=== PATIENT | male | born 1930 | race Caucasian/White ===

== ENCOUNTER 2017-08-12 20:40 | Emergency (ER) | payer MEDICARE, BC ==
[2016-01-20 15:56] VITALS: BMI 29.5
[~2017-08-12 20:40] MED LIST: AUGMENTIN 500-11 TA1 PO; BAYER CHEWABLE81 MG PO; CARTIA XT180 MG PO; COREG25 MG PO; COZAAR100 MG PO; LASIX20 MG PO; PACERONE200 MG PO; XANAX0.25 MG PO; ZOCOR40 MG PO
[2017-08-12 21:40] LABS: BASOPHILS 0.4 % (0-2); EOSINOPHILS 2.3 % (0-7); HEMATOCRIT 38.5 % (42.0-54.0); HEMOGLOBIN 12.8 g/dL (13.5-17.5); IMMATURE GRANULOCYTES 0.2 % (0-5); LYMPHOCYTES 26.1 % (15-50); MCH 31.3 pg (26.0-34.0); MCHC 33.2 g/dL (31.0-37.0); MCV 94.1 fL (80.0-100.0); MEAN PLATELET VOLUME 9.2 fL (7.4-10.4); MONOCYTES 9.5 % (2-11); NEUTROPHILS 61.5 % (40-80); PLATELET COUNT 197 10x3/uL (130-400); RBC 4.09 10x6/uL (4.20-6.10); WBC 12.6 10x3/uL (4.8-10.8)
[2017-08-12 22:01] LABS: ALBUMIN 3.3 g/dL (3.4-5.0); ALKALINE PHOSPHATASE 78 U/L (46-116); ALT (SGPT) 48 U/L (10-68); BILIRUBIN - TOTAL 0.36 mg/dL (0.2-1.3); CALC OSMOLALITY 287 mosm/kg (275-300); CALCIUM 8.7 mg/dL (8.5-10.1); CARBON DIOXIDE 26.4 mmol/L (21.0-32.0); CHLORIDE - SERUM 105 mmol/L (98-107); CREATININE - SERUM 1.9 mg/dL (0.6-1.3); GLUCOSE 143 mg/dL (74-106); POTASSIUM - SERUM 4.8 mmol/L (3.5-5.1); PROTEIN - SERUM 7.2 g/dL (6.4-8.2); SODIUM 140 mmol/L (136-145); UREA NITROGEN 33 mg/dL (7-18); eGFR NON AFRICAN AMERICAN 36 mL/min (90-120)
[2017-08-12 22:40] LABS: CHOLESTEROL, TOTAL 128 mg/dL (0-200); CKMB 4.5 U/L (0.0-3.6); CREATINE KINASE 88 UL (21-232); HDL CHOLESTEROL 32 mg/dL (32-96); LDL CHOLESTEROL 73 mg/dL (0-100); LDL-HDL RATIO 2.3 ratio (1.5-3.5); TRIGLYCERIDE 116 mg/dL (30-200)
[2017-08-12 22:45] LABS: TROPONIN-I 1.001 ng/mL (0.000-0.060)
== END 2017-08-12 22:08 | disposition home or self-care (01) ==
LOC: D.ER 20:40
PROVIDERS: Emergency Medicine
DX: R00.2 Palpitations (principal); Z95.0 Presence of cardiac pacemaker

== ENCOUNTER 2018-05-08 23:04 | Inpatient (IN) | payer MEDICARE, BC ==
[~2018-05-08] VITALS: Ht 172.7 cm; Wt 79.5 kg
--- NOTE | ~2018-05-08 | HEMODYNAMI ---
PATIENT:LUZ JIMENEZ MEDICAL RECORD: [id number] : 30 LOCATION:[place] [address] ADMISSION DATE: 05/09/18 Generatedon:05/09/201810:04 Patient name: LUZ JIMENEZ Patient #: [id number] : 1930 Date of study: 05/09/2018 Page: Of Hemodynamic Procedure Report Patient Data Patient Demographics Procedure consent was obtained First Name: LUZ Gender: Male Last Name: TONY : 1930 Middle Initial: C Age: 87 year(s) Patient #: [id number] Race: SSN: [id number] Additional ID: [id number] Contact details Address: [address] [place] [address] circle State: [place] City: [place] Zip code: [address] Past Medical History Allergies: No allergy information Admission Admission Data Admission Date: 05/09/2018 Admission Time: 0:40 Room #: [facility] Height (in.): 180 Height (cm.): 457.2 Lab Results Lab Result Date: 05/09/2018 Lab Result Time: 0:00 Biochemistry Name Units Result Min Max BUN mg/dl 32 --(----)-* 7 18 Creatinine mg/dl 1.6 --(----)-* 0.6 1.3 CBC Name Units Result Min Max Hemoglobin g/dl 12.1 *-(----)-- 13.5 17.5 Procedure Procedure Types Cath Procedure Diagnostic Procedure LHC LHC w/Coronaries w/Grafts Sedation Charges Moderate Sedation up to 15 minutes Procedure Description Procedure Date Procedure Date: 05/09/2018 Procedure Start Time: 9:43 Procedure End Time: 10:01 Procedure Staff Name Function Deion Morin MD Performing Physician Disha Blankenship RT Monitor Eric Patel RN Nurse Alexia Devi RT Scrub Procedure Data Cath Procedure Fluoroscopy Diagnostic fluoroscopy Total fluoroscopy Time: 3.3 time: 3.3 min min Diagnostic fluoroscopy Total fluoroscopy dose: 955 dose: 955 mGy mGy Contrast Material Contrast Material Type Amount (ml) Isovue 300 108 Entry Location Entry Primary Successful Side Size Upsize Upsize Entry Closure Succes sful Closure Location (Fr) 1 (Fr) 2 (Fr) Remarks Device Remarks Femoral Right 5 Fr Exoseal artery Estimated blood loss: 5 ml Diagnostic catheters Device Type Used For End Catheter Placement MULTIPACK JL 4.0 5Fr Procedure catheter DIAGNOSTIC AR MOD 5Fr Procedure Catheter ([id number]) DIAGNOSTIC IM 5Fr Procedure catheter ([id number]) MULTIPACK Pigtail 5 Fr Procedure catheter Procedure Complications No complications Procedure Medications Medication Administration Route Dosage 0.9% NaCl I.V. 100 ml/hr Oxygen 4 l/min Heparin Flush Bag added to field 2 bags (1000units/500ml NS) Lidocaine 2% added to field 20 Versed I.V. 1 mg Fentanyl I.V. 50 mcg Versed I.V. 0.5 mg Fentanyl I.V. 25 mcg Hemodynamics Rest HGB: 12.1 (g/dl) Heart Rate: 60 (bpm) Pressure Samples Time Site Value (mmHg) Purpose Heart Use Rate(bpm) 9:54 LV 131/-1,17 Snapshot 48 9:55 AO 130/45(77) Pullback 60 9:55 LV 137/-1,16 Pullback 60 Gradients Valve Time Site 1 Site 2 Mean SEP/DFP Peak To Heart Use (mmHg) (sec/min) Peak Rate (mmHg) (bpm) Aortic 9:55 LV AO 7 15 7 60 137/-1,16 130/45(77) Calculations Valve P-P Mean Valve Index Valve Source Name Gradient Area Flow (cm2) Aortic 7 7 7 7 Snapshots Pre Cath Intra NCS Post Cath Vital Signs Time Heart Resp SPO2 etCO2 NIBP (mmHg) Rhythm Pain Sedation Rate (ipm) (%) (mmHg) Status Level (bpm) 9:20:49 60 24 90 0 156/75(132) Paced 0 (11) 9(A) , No pain 9:25:32 58 24 88 0 152/77(123) Paced 0 (11) 9(A) , No pain 9:30:14 60 16 86 0 148/70(125) Paced 0 (11) 9(A) , No pain 9:34:57 60 14 86 0 140/72(118) Paced 0 (11) 9(A) , No pain 9:39:37 60 12 84 0 138/69(112) Paced 0 (11) 9(A) , No pain 9:44:18 60 19 89 0 143/68(115) Paced 0 (11) 9(A) , No pain 9:49:01 60 13 89 0 133/65(111) Paced 0 (11) 9(A) , No pain 9:53:39 61 11 91 0 134/65(110) Paced 0 (11) 9(A) , No pain 9:58:20 60 15 91 0 128/61(103) Paced 0 (11) 9(A) , No pain Medications Time Medication Route Dose Verified Delivered Reason Notes Effec tiveness by by 9:23:21 0.9% NaCl I.V. 100 Eric Eric Per ml/hr Jorge Patel physician RN RN 9:23:46 Oxygen 4 Eric Eric Per l/min Jorge Patel physician RN RN 9:23:58 Heparin Flush added 2 Eric Eric used for Bag to bags Lorigan Lorigan procedure (1000units/500ml field RN RN NS) 9:24:15 Lidocaine 2% added 20ml Eric Eric for local to vial Lorigan Lorigan anesthetic field RN RN 9:33:13 Versed I.V. 1 mg Eric Eric for Lorigan Lorigan sedation RN RN 9:33:24 Fentanyl I.V. 50 Eric Eric for mcg Lorigan Lorigan sedation RN RN 9:44:37 Versed I.V. 0.5 Eric Eric for mg Lorigan Lorigan sedation RN RN 9:44:46 Fentanyl I.V. 25 Eric Eric for mcg Lorigan Lorigan sedation RN director recreation Log Time Note 8:58:36 Eric Patel RN sent for patient. Start room use. 8:58:37 Time tracking: Regular hours (M-F 7:00 - 5:00) 8:58:40 Plan of Care:Hemodynamics will remain stable., Cardiac rhythm will remain stable., Comfort level will be maintained., Respiratory function will remain adequate., Patient/ family verbilizes understanding of procedure., Procedure tolerated without complication., Recovers from procedure without complications.. 9:11:31 Patient received from PCU to CCL 1 Alert and oriented. Tansferred to table in Supine position. 9:11:31 Warm blankets applied, and boby hugger turned on for patient comfort. 9:11:32 Correct patient and procedure confirmed by team. 9::34 Signed procedure consent form obtained from patient. 9:11:34 ECG and BP/O2 sat monitors applied to patient. 9:11:35 Full Disclosure recording started 9:19:53 Vital chart was started 9:23:21 0.9% NaCl 100 ml/hr I.V. was administered by Eric Patel RN; Per physician; 9:23:46 Oxygen 4 l/min was administered by Eric Patel RN; Per physician; 9:23:58 Heparin Flush Bag (1000units/500ml NS) 2 bags added to field was administered by Eric Patel RN; used for procedure; 9:24:15 Lidocaine 2% 20ml vial added to field was administered by Eric Patel RN; for local anesthetic; 9:24:39 Baseline sample Acquired. 9:24:45 Rhythm: sinus bradycardia 9:25:05 H&P Date Dictated: 05/09/2018 Within 30 days and on chart.. 9:25:06 Pre-procedure instructions explained to patient. 9:25:06 Pre-op teaching completed and patient verbalized understanding. 9:25:09 Family in patients room. 9:25:11 Patient NPO since Midnight. 9:25:22 Patient allergic to No allergy information 9:25:24 Is the patient allergic to Iodine/contrast media? No. 9:25:25 Was the patient premedicated? No 9:25:26 Is patient on blood thinner?No 9:25:28 Patient diabetic? No. 9:25:32 Previous problem with sedation/anesthesia? No ? 9:25:33 Snore? No 9:25:34 Sleep apnea? Yes 9:25:35 Deviated septum? No 9:25:36 Opens mouth fully? Yes 9:25:37 Sticks out tongue? Yes 9:25:39 Airway obstruction? No ? 9:25:43 Dentures? Yes in tight 9:25:48 Pre procedure: right dorsailis pedis pulse 1+ Palpable, but thready & weak; easily obliterated 9:25:50 Patient pain scale 0/10 ?. 9:25:56 IV patent on arrival in right antecubital with 0.9% NaCl at KVO. ::34 Lab Result : BUN 32 mg/dl : Lab Result : Hemoglobin 12.1 g/dl : Lab Result : Creatinine 1.6 mg/dl ::38 Lab results completed and on chart. 9::41 Right groin area was prepped with chlora-prep and draped in sterile fashion 9::42 Alarms reviewed by R. N. 9::42 Sharps counted by scrub and verified by R.N. 9::45 Use device set Femoral Dx 9:26:46 ACIST Syringe ([id number]) opened to sterile field. 9:26:47 Bag Decanter (2002S) opened to sterile field. 9:26:48 ACIST Manifold (13047) opened to sterile field. 9:26:49 ACIST Hand Control (56540) opened to sterile field. 9:26:51 Tegaderm 4 x 4 (1626W) opened to sterile field. 9:26:52 Medline Cath Pack ([id number]) opened to sterile field. 9:26:53 DIAGNOSTIC WIRE .035 260cm J wire (378756) opened to sterile field. 9:26:54 DIAGNOSTIC Multipack 5Fr catheter set ([id number]) opened to sterile field. 9:26:57 SHEATH Prelude 5Fr 0.035 ([id number]-5X-64-035) opened to sterile field. 9:29:46 --------ALL STOP TIME OUT------ 9:29:47 Final Timeout: patient, procedure, and site verified with staff and physician. All members of the team are in agreement. 9:29:49 Right groin site verified by team. 9:29:52 Physical assessment completed. ASA score P 2 - A patient with mild systemic disease as per Deion Morin MD. 9:29:56 Sedation plan: IV Moderate Sedation Medication:Versed, Fentanyl 9:33:11 Procedure type changed to Cath procedure, Diagnostic procedure, LHC, LHC w/Coronaries w/Grafts, Sedation Charges, Moderate Sedation up to 15 minutes 9:33:13 Versed 1 mg I.V. was administered by Eric Patel RN; for sedation; 9:33:20 Patient Height : 180 inches 9:33:24 Fentanyl 50 mcg I.V. was administered by Eric Patel RN; for sedation; 9:42:21 Zero performed for pressure channel P1 9:42:42 Procedure started. 9:43:11 Local anesthetic to right femoral artery with Lidocaine 2% by Deion Morin MD.INITIAL ACCESS ONLY 9:44:37 Versed 0.5 mg I.V. was administered by Eric Patel RN; for sedation; 9:44:46 Fentanyl 25 mcg I.V. was administered by Eric Patel RN; for sedation; 9:45:18 A 5 Fr sheath was inserted into the Right Femoral artery 9:45:47 A MULTIPACK JL 4.0 5Fr catheter was advanced over the wire and used for Procedure. 9:46:44 LCA angiography performed. 9:47:02 Catheter exchanged over wire. 9:47:16 A DIAGNOSTIC AR MOD 5Fr Catheter ([id number]) was advanced over the wire and used for Procedure. 9:48:10 RCA angiography performed. 9:48:46 SVG to Circ occluded. 9:50:12 SVG to RPDA occluded. 9:50:46 Catheter exchanged over wire. 9:51:14 A DIAGNOSTIC IM 5Fr catheter ([id number]) was advanced over the wire and used for Procedure. 9:52:26 XAVIER to LAD angiography performed. 9:53:13 Catheter exchanged over wire. 9:54:08 A MULTIPACK Pigtail 5 Fr catheter was advanced over the wire and used for Procedure. 9:54:16 Injector settings: Ml/sec: 10, Volume: 20, 9:54:18 LV gram done using BELTRÁN 9:54:49 LV hemodynamics recorded. 9:55:01 EF : 40 % 9:56:11 Catheter removed. 9:57:15 EXOSEAL 5Fr (EX500) opened to sterile field. 9:57:28 Sheath removed intact; hemostasis achieved with Exoseal to the Right Femoral artery. 9:58:16 Procedure ended.(Physican Out) 9:58:54 Fluoroscopy time 03.30 minutes. 9:59:07 Flurop Dose total: 955 9:59:07 Fluoroscopy dose: 955 mGy 9:59:11 Contrast amount:Isovue 300 108ml. 9:59:13 Sharps counted by scrub and verified by R.N. 9:59:19 Post-op/insertion site Right Femoral artery dressed using a 4 x 4 and Tegaderm. 9:59:22 Post right femoral artery:stable, soft, clean and dry 9:59:56 Post procedure: right dorsailis pedis pulse 1+ Palpable, but thready & weak; easily obliterated. 10:00:01 Post-procedure physical assessment completed. ASA score P 2 - A patient with mild systemic disease as per Deion Morin MD. 10:00:05 Post procedure rhythm: unchanged. 10:00:08 Estimated blood loss: 5 ml 10:00:10 Post procedure instruction explained to patient.Patient verbalizes understanding. 10:00:11 Patient needs reinforcement of post procedure teaching. 10:01:10 Procedure and supply charges have been captured, reviewed, submitted and are correct. 10:01:12 Procedure Complication : No complications 10:01:14 Vital chart was stopped 10:01:15 See physician's report for complete and final results. 10:01:20 Report given to PCU. 10:01:23 Patient transfered to PCU with Bed. 10:01:25 Procedure ended. 10:01:25 Full Disclosure recording stopped 10:01:29 End room use (Document Last) Device Usage Item Name Manufacture Quantity Catalog Number Hospital Part Current M inimal Lot# / Charge Number Stock Stock Serial# Code ACIST Syringe Acist 1 07703 200969 381923 699831 2 0 (59321) Medical [employer] Inc Bag Decanter Microtek 1 2002S 111014 28938 565964 5 (2001S) Medical Inc. ACIST Manifold Acist 1 73449 407467 943939 154402 5 (22343) Medical Systems Inc ACIST Hand Acist 1 02851 889804 858529 116803 5 Control (58998) Medical Systems Inc Tegaderm 4 x 4 3M 1 1626W 566769 452519 069264 5 (1626W) Medline Cath Cardinal 1 [id number] 378605 97272 914272 5 Pack Health ([id number]) DIAGNOSTIC WIRE [facility] Christiano 1 908863 378585 897523 859457 3 0 .035 260cm J wire (251942) DIAGNOSTIC Cardinal 1 WK1468 304634 51679 354022 3 0 Multipack 5Fr Health catheter set (QT2399) SHEATH Prelude Merit 1 NHG-1I-28-035 023525 713515 875061 5 5Fr 0.035 Medical ([id number]-6I-81-035) MULTIPACK JL Cardinal 1 823573 5 4.0 5Fr Health catheter DIAGNOSTIC AR Cardinal 1 [id number] 119275 826121 399822 1 5 MOD 5Fr Health Catheter (179457O) DIAGNOSTIC IM Cardinal 1 [id number] 159548 543028 452943 5 5Fr catheter Health (044098B) MULTIPACK Cardinal 1 134831 5 Pigtail 5 Fr Health catheter EXOSEAL 5Fr Cardinal 1 EX500 316592 233208 608510 1 0 (EX500) Health Signature Audit Wayne Stage Time Signature Unsigned Intra-Procedure 05/09/2018 Disha Blankenship 10:04:49 AM RT(R) Signatures Monitor : Disha Blankenship Signature : RT Date : Time : [address] [address]
[~2018-05-08 23:04] MED LIST changes: +PLAVIX75 MG PO
[2018-05-08 23:37] LABS: BASOPHILS 0.5 % (0-2); EOSINOPHILS 2.4 % (0-7); HEMATOCRIT 35.8 % (42.0-54.0); HEMOGLOBIN 12.1 g/dL (13.5-17.5); IMMATURE GRANULOCYTES 0.1 % (0-5); LYMPHOCYTES 22.4 % (15-50); MCH 31.3 pg (26.0-34.0); MCHC 33.8 g/dL (31.0-37.0); MCV 92.7 fL (80.0-100.0); MEAN PLATELET VOLUME 9.1 fL (7.4-10.4); MONOCYTES 10.1 % (2-11); NEUTROPHILS 64.5 % (40-80); RBC 3.86 10x6/uL (4.20-6.10); RDW 14.5 % (11.5-14.5); WBC 9.8 10x3/uL (4.8-10.8)
[2018-05-08 23:39] LABS: PLATELET COUNT 161 10x3/uL (130-400)
[2018-05-08 23:50] LABS: ALBUMIN 3.2 g/dL (3.4-5.0); ALKALINE PHOSPHATASE 89 U/L (46-116); ALT (SGPT) 28 U/L (10-68); BILIRUBIN - TOTAL 0.44 mg/dL (0.2-1.3); CALC OSMOLALITY 287 mosm/kg (275-300); CARBON DIOXIDE 25.4 mmol/L (21.0-32.0); CHLORIDE - SERUM 103 mmol/L (98-107); CREATININE - SERUM 1.6 mg/dL (0.6-1.3); GLUCOSE 135 mg/dL (74-106); POTASSIUM - SERUM 4.1 mmol/L (3.5-5.1); PROTEIN - SERUM 6.9 g/dL (6.4-8.2); SODIUM 140 mmol/L (136-145); UREA NITROGEN 32 mg/dL (7-18); eGFR NON AFRICAN AMERICAN 44 mL/min (90-120)
[2018-05-08 23:56] LABS: APPEARANCE CLEAR (CLEAR); BILIRUBIN NEGATIVE (NEGATIVE); COLOR YELLOW (YELLOW); GLUCOSE NEGATIVE (NEGATIVE); KETONE NEGATIVE (NEGATIVE); NITRITE NEGATIVE (NEGATIVE); PROTEIN NEGATIVE (NEGATIVE); SPECIFIC GRAVITY 1.015 (1.005-1.020); UROBILINOGEN NORMAL (NORMAL)
[2018-05-09 00:02] LABS: CKMB 1.1 U/L (0.0-3.6); CREATINE KINASE 51 UL (21-232)
[2018-05-09 00:04] LABS: TROPONIN-I < 0.017 ng/mL (0.000-0.060)
[2018-05-09 01:47] VITALS: BP 134/54; BMI 27.4
[2018-05-09 04:00] VITALS: BP 115/48
[2018-05-09 08:19] LABS: BASOPHILS 0.5 % (0-2); EOSINOPHILS 2.6 % (0-7); HEMATOCRIT 36.1 % (42.0-54.0); IMMATURE GRANULOCYTES 0.1 % (0-5); LYMPHOCYTES 27.2 % (15-50); MCH 30.9 pg (26.0-34.0); MCHC 33.2 g/dL (31.0-37.0); MEAN PLATELET VOLUME 9.2 fL (7.4-10.4); MONOCYTES 14.3 % (2-11); NEUTROPHILS 55.3 % (40-80); PLATELET COUNT 156 10x3/uL (130-400); RBC 3.88 10x6/uL (4.20-6.10); RDW 14.4 % (11.5-14.5); WBC 8.5 10x3/uL (4.8-10.8)
[2018-05-09 08:31] VITALS: BP 141/60
[2018-05-09 08:49] LABS: % SATURATION 10 % (15-55); IRON 28 ug/dl (35-150); TOTAL IRON BIND CAPACITY 272 ug/dl (260-445); UNSAT IRON BIND CAPACITY 244 ug/dl (150-375)
[2018-05-09 08:59] LABS: CALCIUM 8.5 mg/dL (8.5-10.1); CARBON DIOXIDE 29.9 mmol/L (21.0-32.0); CHOL - HDL RATIO 2.9 ratio (2.3-4.9); CREATININE - SERUM 1.5 mg/dL (0.6-1.3); LDL-HDL RATIO 1.6 ratio (1.5-3.5); POTASSIUM - SERUM 3.9 mmol/L (3.5-5.1); THYROID STIMULATING HORMONE 1.88 uIU/mL (0.36-3.74)
[2018-05-09 11:53] VITALS: BP 120/51
[2018-05-09 13:39] VITALS: Ht 172.7 cm; Wt 79.5 kg
[2018-05-09 16:17] VITALS: BP 118/57
[2018-05-09 20:32] VITALS: BP 118/58
[2018-05-10 01:16] VITALS: BP 126/62
[2018-05-10 04:00] VITALS: BP 125/55
[2018-05-10 07:34] LABS: FOLATE (FOLIC ACID) - SERUM >20.0 ng/mL (>3.0)
[2018-05-10 08:18] VITALS: BP 141/64
[2018-05-10 11:17] VITALS: BP 140/58
[2018-05-10 15:32] VITALS: BP 138/66
[2018-05-10 21:25] VITALS: BP 134/55
[2018-05-11 01:28] VITALS: BP 130/59
[2018-05-11 04:00] VITALS: BP 136/62
[2018-05-11 05:08] LABS: BASOPHILS 0.7 % (0-2); HEMATOCRIT 38.2 % (42.0-54.0); HEMOGLOBIN 12.8 g/dL (13.5-17.5); IMMATURE GRANULOCYTES 0.1 % (0-5); LYMPHOCYTES 30.6 % (15-50); MCH 31.2 pg (26.0-34.0); MCHC 33.5 g/dL (31.0-37.0); MCV 93.2 fL (80.0-100.0); MEAN PLATELET VOLUME 8.9 fL (7.4-10.4); NEUTROPHILS 52.6 % (40-80); PLATELET COUNT 177 10x3/uL (130-400); RDW 14.3 % (11.5-14.5); WBC 8.7 10x3/uL (4.8-10.8)
[2018-05-11 05:26] LABS: ANION GAP 13.8 mmol/L (8-16); CALCIUM 8.4 mg/dL (8.5-10.1); CREATININE - SERUM 1.4 mg/dL (0.6-1.3); MAGNESIUM - SERUM 2.3 mg/dL (1.8-2.4); PHOSPHOROUS 3.5 mg/dL (2.5-4.9); POTASSIUM - SERUM 3.8 mmol/L (3.5-5.1)
[2018-05-11 09:05] VITALS: BP 140/61
[2018-05-11 11:14] VITALS: BP 139/54
== END 2018-05-11 11:29 | disposition home or self-care (01) | DRG 286 ==
LOC: D.ER 23:04 → D.M2 05-09 00:40
PROVIDERS: Family Medicine; Internal Medicine Cardiovascular Disease
PROC: B2151ZZ Fluoroscopy of Left Heart using Low Osmolar Contrast (ICD-10-PCS; 2018-05-09)
PROC: B2181ZZ Fluoroscopy of Left Internal Mammary Bypass Graft using Low Osmolar Contrast (ICD-10-PCS; 2018-05-09)
PROC: B2121ZZ Fluoroscopy of Single Coronary Artery Bypass Graft using Low Osmolar Contrast (ICD-10-PCS; 2018-05-09)
PROC: 4A023N7 Measurement of Cardiac Sampling and Pressure, Left Heart, Percutaneous Approach (ICD-10-PCS; 2018-05-09)
PROC: B2111ZZ Fluoroscopy of Multiple Coronary Arteries using Low Osmolar Contrast (ICD-10-PCS; principal; 2018-05-09 10:30)
DX: I13.0 Hypertensive heart and chronic kidney disease with heart failure and stage 1 through stage 4 chronic kidney disease, or unspecified chronic kidney disease (principal); I50.21 Acute systolic (congestive) heart failure; J18.9 Pneumonia, unspecified organism; J44.0 Chronic obstructive pulmonary disease with (acute) lower respiratory infection; N18.9 Chronic kidney disease, unspecified; I25.10 Atherosclerotic heart disease of native coronary artery without angina pectoris; I48.0 Paroxysmal atrial fibrillation; E78.5 Hyperlipidemia, unspecified; K59.00 Constipation, unspecified; D64.9 Anemia, unspecified; Z95.0 Presence of cardiac pacemaker; Z95.5 Presence of coronary angioplasty implant and graft; Z95.1 Presence of aortocoronary bypass graft

== ENCOUNTER 2019-03-01 00:01 | Inpatient (IN) | payer MEDICARE, BC ==
[~2019-03-01] VITALS: Ht 172.7 cm; Wt 79.4 kg
[2019-03-01] VITALS (7 sets, daily range): BP systolic 117–140; BP diastolic 50–63; Ht 172.7 cm; Wt 79.4 kg
[2019-03-01 02:01] LABS: BASOPHILS 0.4 % (0-2); EOSINOPHILS 1.1 % (0-7); HEMATOCRIT 38.1 % (42.0-54.0); HEMOGLOBIN 12.7 g/dL (13.5-17.5); IMMATURE GRANULOCYTES 0.2 % (0-5); LYMPHOCYTES 21.3 % (15-50); MCH 30.3 pg (26.0-34.0); MCHC 33.3 g/dL (31.0-37.0); MCV 90.9 fL (80.0-100.0); MEAN PLATELET VOLUME 9.1 fL (7.4-10.4); MONOCYTES 9.3 % (2-11); NEUTROPHILS 67.7 % (40-80); PLATELET COUNT 206 10x3/uL (130-400); RBC 4.19 10x6/uL (4.20-6.10); RDW 14.9 % (11.5-14.5); WBC 11.2 10x3/uL (4.8-10.8)
[2019-03-01 02:26] LABS: ALKALINE PHOSPHATASE 90 U/L (46-116); ALT (SGPT) 43 U/L (10-68); CALC OSMOLALITY 280 mosm/kg (275-300); CALCIUM 8.1 mg/dL (8.5-10.1); CHLORIDE - SERUM 102 mmol/L (98-107); CREATININE - SERUM 1.5 mg/dL (0.6-1.3); GLUCOSE 127 mg/dL (74-106); POTASSIUM - SERUM 4.2 mmol/L (3.5-5.1); SODIUM 137 mmol/L (136-145); UREA NITROGEN 27 mg/dL (7-18); eGFR NON AFRICAN AMERICAN 47 mL/min (90-120)
[2019-03-01 02:47] LABS: CKMB 1.2 U/L (0.0-3.6); CREATINE KINASE 36 UL (21-232); TROPONIN-I 0.023 ng/mL (0.000-0.060)
--- NOTE | 2019-03-01 04:09 | NUR ---
[facility] STOP TIME IS 6537.
[2019-03-01] MEDS ORDERED: LANOXIN125 MCG PO (04:49)
--- NOTE | 2019-03-01 08:30 | NUR ---
PATIENT IN BED WITH IV INTACT. NO COMPLAINTS OR SIGNS OF DISTRESS. CALL LIGHT WITHIN REACH.
[2019-03-01] MEDS ORDERED: BETAPACE 80 MG80 MG PO (12:51)
[2019-03-01] MEDS ORDERED: COLACE100 MG PO (12:52)
[2019-03-01] MEDS ORDERED: SYSTANE NIGHTT3.5 GM PO (12:53)
--- NOTE | 2019-03-01 12:57 | NUR ---
PATIENT TOOK OWN MEDS AT THIS TIME. STATED HE WASNT GOING TO WAIT ANYMORE TO GET MEDS AND THAT HE KNOWS WHAT HE TAKES AND HE HAS HIS OWN. I EXPLAINED I WOULD BRING THE MEDS THAT I HAVE AND TALK TO THE DOCTOR ABOUT HIS OTHER MEDS BUT PATIENT REFUSED. HE STATED HE ONLY TAKES CERTAIN MEDS DURING THE DAY AND CERTAIN AT NIGHT.
--- NOTE | 2019-03-01 14:40 | MORECARE ---
CASE MANAGEMENT DISCHARGE SUMMARY PATIENT: LUZ JIMENEZ UNIT: [id number] ADM DATE: 03/01/19 AGE: 88 : 30 SEX: M ROOM/BED: D.2212 AUTHOR: MARE SOARES PHYSICIAN: REFERRING PHYSICIAN: LILIANE NELSON MD DATE OF SERVICE: 03/01/19 Discharge Plan Patient Name: [facility]ENE[facility] 1930 Planned Disposition: Home or Self Care Anticipated Discharge Date: Discharge Date: Expected LOS: Initial Reviewer: [email or web address] Initial Review Date: 03/01/2019 Generated: 03/01/19 3:39 pm DCPIA - Discharge Planning Initial Assessment Updated by [email or web address]: Megan Hall on 03/01/19 2:39 pm * Is the patient Alert and Oriented? Yes * How many steps to enter\exit or inside your home? * PCP DR RICHARD * Pharmacy [facility] * Preadmission Environment Home with Family * ADLs Independent * Equipment Cane CPAP Rolling Walker * Other Equipment O2 CONCENTRATOR * List name and contact numbers for known caregivers / representatives who currently or will assist patient after discharge: SAMIR () [phone] * Verbal permission to speak to the caregivers and representatives has been obtained from the patient. Yes * Community resources currently utilized Other * Please name any agencies selected above. [facility] (CP[facility]) * Additional services required to return to the preadmission environment? No * Can the patient safely return to the preadmission environment? Yes * Has this patient been hospitalized within the prior 30 days at any hospital? No Patient Name: LUZ JIMENEZ Page 23339 at 1440 All edits/amendments must be made on the electronic document DICTATION DATE: 03/01/191438 SOLAR ELECTRIC PRACTITIONER: ZAFAR 03/01/19 143 RPT#: [id number] DC DATE: STATUS: ADM IN [facility] [address] [place] [address] END OF REPORT
--- NOTE | 2019-03-01 14:51 | MORECARE ---
CASE MANAGEMENT DISCHARGE SUMMARY PATIENT: LUZ JIMENEZ UNIT: [id number] ADM DATE: 03/01/19 AGE: 88 : 30 SEX: M ROOM/BED: D.2212 AUTHOR: FANYDOC PHYSICIAN: REFERRING PHYSICIAN: LILIANE NELSON MD DATE OF SERVICE: 03/01/19 Discharge Plan Patient Name: LUZ JIMENEZ Facility: [facility]:[place] : 1930 Planned Disposition: Home or Self Care Anticipated Discharge Date: Discharge Date: Expected LOS: Initial Reviewer: [email or web address] Initial Review Date: 03/01/2019 Generated: 03/01/19 3:50 pm Comments DCP- Discharge Planning Updated by [email or web address]: Megan Hall on 03/01/19 1:[address] Patient Name: LUZ JIMENEZ Admission Status: ER Accout number: [id number] Admission Date: 03-01-2019 : 1930 Admission Diagnosis: Attending: OMAR, Current LOS: 1 Anticipated DC Date: Planned Disposition: Home or Self Care Primary Insurance: MEDICARE A & B Discharge Planning Comments: CM met with patient and to assess discharge planning needs. Patient stated that he is independent with his care at home and plans to return there at discharge. He has a cane, CPAP ([facility]) walker (that he does not use) home O2 concentrator. His will be his lifter/driver home. 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 Will need to get a walk test before discharge to see if he needs portable O2. CM will continue to follow and assist with DC planning Motor Vehicle Clerk: Megan Hall DCPIA - Discharge Planning Initial Assessment Updated by [email or web address]: Megan Hall on 03/01/19 2:39 pm * Is the patient Alert and Oriented? Yes * How many steps to enter\exit or inside your home? * PCP DR RICHARD * Pharmacy [facility] * Preadmission Environment Home with Family * ADLs Independent * Equipment Cane CPAP Rolling Walker * Other Equipment O2 CONCENTRATOR * List name and contact numbers for known caregivers / representatives who currently or will assist patient after discharge: SAMIR () [phone] * Verbal permission to speak to the caregivers and representatives has been obtained from the patient. Yes * Community resources currently utilized Other * Please name any agencies selected above. [facility] (CP[facility]) * Additional services required to return to the preadmission environment? No * Can the patient safely return to the preadmission environment? Yes * Has this patient been hospitalized within the prior 30 days at any hospital? No Coverage Notice Reviewer: [email or web address] Preeti Hall Notice Issued Date-Time: 03/01/2019 14:00 Notice Type: Patient Choice Letter Notice Delivered To: Patient Relationship to Patient: Patient Intake Representative Name: Delivery Method: - Caitlyn Days: Prior Verbal Notification: Recipient Understood Notice: Yes Recipient Signature: Yes Med Rec Note Co-signed by Attending: Coverage Notice Comment: patient has a CPAP with [facility] Last DP export: 03/01/19 1:40 pm Patient Name: LUZ JIMENEZ Page [phone] at 1451 All edits/amendments must be made on the electronic document DICTATION DATE: 03/01/19 145 AIRFREIGHT LOADING SUPERVISOR: ZAFAR 03/01/19 145 RPT#: [id number] DC DATE: STATUS: ADM IN [facility] [address] [place] [address] END OF REPORT
--- NOTE | 2019-03-01 15:48 | NUR ---
PATIENT IN BED WITH IV INTACT. NO COMPLAINTS OR SIGNS OF DISTRESS. FAMILY AT BEDSIDE. CALL LIGHT WITHIN REACH.
--- NOTE | 2019-03-01 17:17 | NUR ---
PATIENT TAKES ALL MEDS IN AM AND AT NIGHT. HE WILL NOT TAKE THEM AT ANY OTHER TIME. TRIED TO SCHEDULE ALL MEDS LIKE PATIENT TAKES AT HOME. PATIENT IN BED WITH EYES CLOSED RESTING QUIETLY AT THIS TIME. IV INTACT. CALL LIGHT WITHIN REACH.
[2019-03-02 01:32] VITALS: BP 154/64
[2019-03-02 05:18] VITALS: BP 134/56
[2019-03-02 07:14] LABS: BASOPHILS 0.2 % (0-2); EOSINOPHILS 1.3 % (0-7); HEMATOCRIT 38.8 % (42.0-54.0); HEMOGLOBIN 12.6 g/dL (13.5-17.5); IMMATURE GRANULOCYTES 0.2 % (0-5); LYMPHOCYTES 23.1 % (15-50); MCH 29.6 pg (26.0-34.0); MCHC 32.5 g/dL (31.0-37.0); MCV 91.3 fL (80.0-100.0); MEAN PLATELET VOLUME 9.2 fL (7.4-10.4); NEUTROPHILS 64.2 % (40-80); PLATELET COUNT 219 10x3/uL (130-400); RBC 4.25 10x6/uL (4.20-6.10); RDW 15.2 % (11.5-14.5); WBC 12.6 10x3/uL (4.8-10.8)
[2019-03-02 07:34] LABS: ALBUMIN 2.8 g/dL (3.4-5.0); ANION GAP 11.7 mmol/L (8-16); BILIRUBIN - TOTAL 0.31 mg/dL (0.2-1.3); CALCIUM 7.8 mg/dL (8.5-10.1); CARBON DIOXIDE 28.1 mmol/L (21.0-32.0); CREATININE - SERUM 1.4 mg/dL (0.6-1.3); POTASSIUM - SERUM 3.8 mmol/L (3.5-5.1); PROTEIN - SERUM 6.7 g/dL (6.4-8.2)
--- NOTE | 2019-03-02 08:22 | NUR ---
AWAKE AND ALERT. ORIENTED X3. NO C/O AT THIS TIME. ALL QUESTIONS ANSWERED. LUNGS ARE CLEAR BUT DIMINISHED ON LEFT SIDE. ENCOURAGED TO USE IS WA. SKIN IS INTACT WITHOUT REDNESS. IV TO RIGHT HAND IS PATENT WITHOUT REDNESS AT INSERTION SITE. DENIES NEEDS. FAMILY AT BEDSIDE.
[2019-03-02 08:45] VITALS: BP 134/45
--- NOTE | 2019-03-02 09:40 | NUR ---
C/O NAUSEA AFTER EATING. NEW ORDERS FOR ZOFRAN RECEIVED. GIVEN 4MG SLOW IVP FOR SAME. WILL MONITOR.
--- NOTE | 2019-03-02 10:30 | NUR ---
FEELING BETTER AT THIS TIME. NO MORE C/O NAUSEA.
[2019-03-02] MEDS ORDERED: TESSALON PERLE100 MG PO (14:02)
[2019-03-02] MEDS ORDERED: MUCINEX600 MG PO (14:02)
[2019-03-02] MEDS ORDERED: ZITHROMAX500 MG PO (14:03)
[2019-03-02] MEDS ORDERED: FLORAJEN3 CAPS460 MG PO (14:03)
[2019-03-02] MEDS ORDERED: PROTONIX40 MG PO (14:03)
[2019-03-02] MEDS ORDERED: XOPENEX 1.1.25 MG/3 UPD (14:04)
[2019-03-02] MEDS ORDERED: OMNICEF300 MG PO (14:04)
[2019-03-02 14:41] VITALS: BP 122/50
--- NOTE | 2019-03-02 14:56 | NUR ---
Rehab Note- Received call from MARLENY Whatley that Dr Brunner wants to hold dc till tomorrow to watch the patient another night. Will plan admit the patient to [facility] when medically stable and ready for discharge from the acute hospital. Will follow at this time. Yue Shukla RN Clinical Liaison, [facility] Re[facility]
--- NOTE | 2019-03-02 16:50 | NUR ---
OFF UNIT VIA BED FOR CT SCAN. FAMILY IN ROOM.
--- NOTE | 2019-03-02 17:05 | NUR ---
RETURNED TO ROOM. DENIES NEEDS.
--- NOTE | 2019-03-02 18:07 | NUR ---
REFUSED SUPPER TRAY. FAMILY IS GOING TO GET HIM FOOD FROM OUTSIDE. DENIES NEEDS.
[2019-03-02 18:28] VITALS: BP 134/59
[2019-03-02 21:00] VITALS: BP 141/61
[2019-03-03 01:06] VITALS: BP 144/52
[2019-03-03 04:36] VITALS: BP 135/51
[2019-03-03 06:18] LABS: BASOPHILS 0.3 % (0-2); EOSINOPHILS 2.1 % (0-7); HEMATOCRIT 36.7 % (42.0-54.0); HEMOGLOBIN 11.9 g/dL (13.5-17.5); IMMATURE GRANULOCYTES 0.4 % (0-5); LYMPHOCYTES 23.9 % (15-50); MCH 29.9 pg (26.0-34.0); MCHC 32.4 g/dL (31.0-37.0); MCV 92.2 fL (80.0-100.0); MEAN PLATELET VOLUME 9.2 fL (7.4-10.4); NEUTROPHILS 61.3 % (40-80); PLATELET COUNT 196 10x3/uL (130-400); RBC 3.98 10x6/uL (4.20-6.10); RDW 15.1 % (11.5-14.5); WBC 11.3 10x3/uL (4.8-10.8)
[2019-03-03 06:49] LABS: ALBUMIN 2.6 g/dL (3.4-5.0); ANION GAP 11.6 mmol/L (8-16); BILIRUBIN - TOTAL 0.31 mg/dL (0.2-1.3); CALCIUM 7.5 mg/dL (8.5-10.1); CARBON DIOXIDE 29.9 mmol/L (21.0-32.0); CREATININE - SERUM 1.6 mg/dL (0.6-1.3); POTASSIUM - SERUM 3.5 mmol/L (3.5-5.1); PROTEIN - SERUM 6.4 g/dL (6.4-8.2)
[2019-03-03 09:15] VITALS: BP 135/57
--- NOTE | 2019-03-03 10:03 | NUR ---
ALERT AND ORIENTED WITH LUNGS CTA. TELEMETRY INTACT. DENIES ANY PAIN OR DISCOMFORT AT THIS TIME WITH FAMILY PRESENT. ENCOURAGED INCENTIVE SPIROMETER. ENCOURAGED TO USE CALL LIGHT FOR ASSIST.
--- NOTE | 2019-03-03 13:00 | NUR ---
NUTRITION F/U PT REPORTS EATING "GOOD AT BREAKFAST." VERY LITTLE LUNCH. STATES HE IS JUST NOT HUNGRY. WILL CONTINUE TO PROVIDE DIET, MONITOR PO INTAKE. RD FOLLOWING
[2019-03-03 13:11] VITALS: BP 125/52
[2019-03-03 15:45] VITALS: BP 129/54
[2019-03-03 20:00] VITALS: BP 135/55
--- NOTE | 2019-03-03 20:20 | NUR ---
PT RESTING IN BED. ALERT AND ORIENTED. NO SIGNS OF DISTRESS. BREATHING EVEN AND UNLABORED. PT STATES NO PROBLEMS AT THIS TIME. IV SITE RT FA DRESSING CLEAN DRY AND INTACT. NO SIGNS OF INFECTION. BOWEL SOUNDS ACTIVE. TELE MONITOR ON [address]ACE. NO LOWER LEG SWELLING PRESENT. WILL CONTINUE PLAN OF CARE. CALL LIGHT IN REACH. BED LOWERED AND LOCKED. BED RAILS UP X2.
--- NOTE | 2019-03-03 21:17 | NUR ---
OT NOTE: PT COMPLETED SUPINE TO SIT WITH SPV. PT COMPLETED STANDING WITH SBA/CGA. PT COMPLETED BUE AROM AT EOB WITH SPV. PT COMPLETED SIMPLE GROOMING TASK AT EOB WITH SPV. THANK YOU, BLAKE ADAMS
[2019-03-04] VITALS: BP 118/55
--- NOTE | 2019-03-04 02:19 | NUR ---
I have reviewed this patient and I concur with the Shift Assessment completed by the Licensed Practical Nurse today this shift.
[2019-03-04 04:00] VITALS: BP 133/71
[2019-03-04 07:28] LABS: BASOPHILS 0.5 % (0-2); EOSINOPHILS 2.9 % (0-7); HEMATOCRIT 37.5 % (42.0-54.0); HEMOGLOBIN 12.2 g/dL (13.5-17.5); IMMATURE GRANULOCYTES 0.2 % (0-5); LYMPHOCYTES 23.9 % (15-50); MCH 29.8 pg (26.0-34.0); MCHC 32.5 g/dL (31.0-37.0); MCV 91.7 fL (80.0-100.0); MEAN PLATELET VOLUME 9.4 fL (7.4-10.4); MONOCYTES 12.4 % (2-11); NEUTROPHILS 60.1 % (40-80); PLATELET COUNT 219 10x3/uL (130-400); RBC 4.09 10x6/uL (4.20-6.10); WBC 10.2 10x3/uL (4.8-10.8)
[2019-03-04 07:52] LABS: ALBUMIN 2.6 g/dL (3.4-5.0); ANION GAP 13.7 mmol/L (8-16); BILIRUBIN - TOTAL 0.3 mg/dL (0.2-1.3); CALCIUM 7.6 mg/dL (8.5-10.1); CARBON DIOXIDE 29.6 mmol/L (21.0-32.0); CREATININE - SERUM 1.2 mg/dL (0.6-1.3); POTASSIUM - SERUM 3.3 mmol/L (3.5-5.1); PROTEIN - SERUM 6.8 g/dL (6.4-8.2)
[2019-03-04 09:50] VITALS: BP 138/64
--- NOTE | 2019-03-04 12:58 | NUR ---
ALERT AND ORIENTED WITH LUNGS CTA. ENF INFUSING AT PRESCRIBED RATE. TELEMETRY INTACT. ENCOURAGED TO USE CALL IGHT FOR ASSIT. IVF INFUSING AT PRESCRIBED RATE. DENIES ANY PAINOR DISCOMFORT AT THIS TIME
[2019-03-04 14:16] VITALS: BP 132/54
--- NOTE | 2019-03-04 15:24 | MORECARE ---
CASE MANAGEMENT DISCHARGE SUMMARY PATIENT: LUZ JIMENEZ UNIT: [id number] ADM DATE: 03/01/19 AGE: 88 : 30 SEX: M ROOM/BED: D.2212 AUTHOR: FANYDOC PHYSICIAN: REFERRING PHYSICIAN: LILIANE NELSON MD DATE OF SERVICE: 03/04/19 Discharge Plan Patient Name: LUZ JIMENEZ Facility: [facility]:[place] : 1930 Planned Disposition: Home or Self Care Anticipated Discharge Date: Discharge Date: Expected LOS: Initial Reviewer: [email or web address] Initial Review Date: 03/01/2019 Generated: 03/04/19 4:24 pm Comments DCP- Discharge Planning Updated by [id number]: Erika Verduzco on 03/04/19 2:[address] TC TO [facility] SCREENER REFERENCE ASSISTANT. ADVISED DR ESCOBAR HAD STATED PATIENT COULD TRANSFER TO ACUTE REHAB. HIS NASAL OXYGEN HAS BEEN WEANED TO 4/L VIA NASAL CANNULA. SHE WILL REVIEW CLINICAL AND PLAN FOR TRANSFER ON WEDNESDAY. THEY WILL ACCOMMODATE HIS REQUEST FOR A SINGLE ROOM. DCP- Discharge Planning Updated by [id number]: Mgean Hall on 03/01/19 1:[address] Patient Name: LUZ JIMENEZ Admission Status: ER Accout number: [id number] Admission Date: 03-01-2019 : 1930 Admission Diagnosis: Attending: OMAR, Current LOS: 1 Anticipated DC Date: Planned Disposition: Home or Self Care Primary Insurance: MEDICARE A & B Discharge Planning Comments: CM met with patient and to assess discharge planning needs. Patient stated that he is independent with his care at home and plans to return there at discharge. He has a cane, CPAP ([place] [facility] Patient) walker (that he does not use) home O2 concentrator. His will be his horse and wagon driver home. 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 Will need to get a walk test before discharge to see if he needs portable O2. CM will continue to follow and assist with DC planning Integration Specialist: Megan Hall DCPIA - Discharge Planning Initial Assessment Updated by [email or web address]: Megan Hall on 03/01/19 2:39 pm * Is the patient Alert and Oriented? Yes * How many steps to enter\exit or inside your home? * PCP DR RICHARD * Pharmacy [facility] * Preadmission Environment Home with Family * ADLs Independent * Equipment Cane CPAP Rolling Walker * Other Equipment O2 CONCENTRATOR * List name and contact numbers for known caregivers / representatives who currently or will assist patient after discharge: SAMIR () [phone] * Verbal permission to speak to the caregivers and representatives has been obtained from the patient. Yes * Community resources currently utilized Other * Please name any agencies selected above. [facility] ([facility]) * Additional services required to return to the preadmission environment? No * Can the patient safely return to the preadmission environment? Yes * Has this patient been hospitalized within the prior 30 days at any hospital? No Coverage Notice Reviewer: [id number] Preeti Hall Notice Issued Date-Time: 03/01/2019 14:00 Notice Type: Patient Choice Letter Notice Delivered To: Patient Relationship to Patient: Customer Contact Representative Name: Delivery Method: - Caitlyn Days: Prior Verbal Notification: Recipient Understood Notice: Yes Recipient Signature: Yes Med Rec Note Co-signed by Attending: Coverage Notice Comment: patient has a CPAP with [place] home patient Last DP export: 03/01/19 1:51 pm Patient Name: LUZ JIMENEZ Page 59924 at 1524 All edits/amendments must be made on the electronic document DICTATION DATE: 03/04/191523 SUPPLY CHAIN TECH: ZAFAR 03/04/191523 RPT#: [id number] DC DATE: STATUS: ADM IN [facility] [address] [place] [address] END OF REPORT
[2019-03-04 17:19] VITALS: BP 134/57
[2019-03-04 20:32] VITALS: BP 145/60
--- NOTE | 2019-03-04 20:59 | NUR ---
ADMINISTERING PT MEDICATION. APICAL PULSE 60. CALL TO TELEMETRY THAT READS 60 PACING. SPOKE WITH PT ABOUT DIGOXIN EFFECTS ON HEART. PT VERY ADAMANT ABOUT "HIS BODY AND HIS MEDICATION." THOUGH NOT RUDE TO THIS NURSE, JUST VERY ADAMANT THAT HE KNOWS HIS HEART AND THAT HE TAKES THIS MEDICINE PRESCRIBED. AND REAGARDLESS OF PULSE HE TAKES IT ANYWAYS. CONSULTED CHARGE NURSE. AGREED TO ADMINISTER MEDICATION DUE TO PT STATING HE TAKES IT DAILY.
--- NOTE | 2019-03-04 22:36 | NUR ---
ADMINISTERED ORDERED. PT ASKED FOR MEDICATION NOT TO BE DILUTED. THIS NURSE STRESSED IMPORTANCE AND SAFETY OF DILUTING MEDICATION. ASKED SEVERAL TIMES FOR THIS NURSE TO GIVE MEDS EARLY. THIS NURSE STATED SHE WOULD NOT. PT AGGRAVATED.
[2019-03-05 01:01] VITALS: BP 118/68
--- NOTE | 2019-03-05 04:07 | NUR ---
I have reviewed this patient and I concur with the Shift Assessment completed by the Licensed Practical Nurse today this shift.
[2019-03-05 06:48] LABS: BASOPHILS 0.5 % (0-2); EOSINOPHILS 2.5 % (0-7); HEMATOCRIT 39.1 % (42.0-54.0); HEMOGLOBIN 13.1 g/dL (13.5-17.5); IMMATURE GRANULOCYTES 0.2 % (0-5); LYMPHOCYTES 26.5 % (15-50); MCH 30.5 pg (26.0-34.0); MCHC 33.5 g/dL (31.0-37.0); MCV 91.1 fL (80.0-100.0); MEAN PLATELET VOLUME 9.3 fL (7.4-10.4); MONOCYTES 10.4 % (2-11); NEUTROPHILS 59.9 % (40-80); PLATELET COUNT 223 10x3/uL (130-400); RBC 4.29 10x6/uL (4.20-6.10); WBC 10.3 10x3/uL (4.8-10.8)
[2019-03-05 07:02] LABS: ALBUMIN 2.6 g/dL (3.4-5.0); ANION GAP 9.8 mmol/L (8-16); BILIRUBIN - TOTAL 0.22 mg/dL (0.2-1.3); CALCIUM 7.8 mg/dL (8.5-10.1); CARBON DIOXIDE 30.9 mmol/L (21.0-32.0); CREATININE - SERUM 1.4 mg/dL (0.6-1.3); POTASSIUM - SERUM 3.7 mmol/L (3.5-5.1); PROTEIN - SERUM 6.6 g/dL (6.4-8.2)
[2019-03-05 10:12] VITALS: BP 134/48
--- NOTE | 2019-03-05 13:33 | NUR ---
REPORT CALLED CALLED TO [facility] VIA W/C AND VERBALIZED UNDERSTANDING OF DISCHARGE INSTRUCTIONS. STABLE AT TIME OF DISCHARGE.
--- NOTE | 2019-03-05 17:25 | MORECARE ---
CASE MANAGEMENT DISCHARGE SUMMARY PATIENT: LUZ JIMENEZ UNIT: [id number] ADM DATE: 03/01/19 AGE: 88 : 30 SEX: M ROOM/BED: D.2212 AUTHOR: FANY,DOC PHYSICIAN: REFERRING PHYSICIAN: LILIANE NELSON MD DATE OF SERVICE: 03/05/19 Discharge Plan Patient Name: LUZ JIMENEZ Facility: [facility]:[place] : 1930 Planned Disposition: Home or Self Care Anticipated Discharge Date: 03/05/19 Discharge Date: 03/05/2019 Expected LOS: 4 Initial Reviewer: [email or web address] Initial Review Date: 03/01/2019 Generated: 03/05/19 6:25 pm Comments DCP- Discharge Planning Updated by [email or web address]: Erika Verduzco on 03/05/19 4:[address] PATIENT WAS DISCHARGED TO [facility] THIS AM. DCP- Discharge Planning Updated by [email or web address]: Erika Verduzco on 03/04/19 2:[address] [facility] VETERINARY MEAT INSPECTOR. ADVISED DR ESCOBAR HAD STATED PATIENT COULD TRANSFER TO ACUTE REHAB. HIS NASAL OXYGEN HAS BEEN WEANED TO 4/L VIA NASAL CANNULA. SHE WILL REVIEW CLINICAL AND PLAN FOR TRANSFER ON WEDNESDAY. THEY WILL ACCOMMODATE HIS REQUEST FOR A SINGLE ROOM. DCP- Discharge Planning Updated by [email or web address]: Megan Hall on 03/01/19 1:[address] Patient Name: LUZ JIMENEZ Admission Status: ER Accout number: [id number] Admission Date: 03-01-2019 : 1930 Admission Diagnosis: Attending: OMAR, Current LOS: 1 Anticipated DC Date: Planned Disposition: Home or Self Care Primary Insurance: MEDICARE A & B Discharge Planning Comments: CM met with patient and to assess discharge planning needs. Patient stated that he is independent with his care at home and plans to return there at discharge. He has a cane, CPAP ([place] Home Patient) walker (that he does not use) home O2 concentrator. 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 Will need to get a walk test before discharge to see if he needs portable O2. CM will continue to follow and assist with DC planning Camp Attendant: Megan Hall DCPIA - Discharge Planning Initial Assessment Updated by [email or web address]: Megan Hall on 03/01/19 2:39 pm * Is the patient Alert and Oriented? Yes * How many steps to enter\exit or inside your home? * PCP DR RICHARD * Pharmacy [facility] * Preadmission Environment Home with Family * ADLs Independent * Equipment Cane CPAP Rolling Walker * Other Equipment O2 CONCENTRATOR * List name and contact numbers for known caregivers / representatives who currently or will assist patient after discharge: SAMIR () [phone] * Verbal permission to speak to the caregivers and representatives has been obtained from the patient. Yes * Community resources currently utilized Other * Please name any agencies selected above. [facility] ([facility]) * Additional services required to return to the preadmission environment? No * Can the patient safely return to the preadmission environment? Yes * Has this patient been hospitalized within the prior 30 days at any hospital? No Coverage Notice Reviewer: [id number] - Megan Hall Notice Issued Date-Time: 03/01/2019 14:00 Notice Type: Patient Choice Letter Notice Delivered To: Patient Relationship to Patient: Contract Modeler Name: Delivery Method: - Caitlyn Days: Prior Verbal Notification: Recipient Understood Notice: Yes Recipient Signature: Yes Med Rec Note Co-signed by Attending: Coverage Notice Comment: patient has a CPAP with [facility] home patient Last DP export: 03/04/19 2:24 pm Patient Name: LUZ JIMENEZ Page 22792 at 1725 All edits/amendments must be made on the electronic document DICTATION DATE: 03/05/191724 SLICE CUTTING MACHINE OPERATOR: ZAFAR 03/05/191724 RPT#: [id number] DC DATE:03/05/19 STATUS: DIS IN [facility] [address] [place] [address] END OF REPORT
--- NOTE | 2019-03-06 13:49 | MORECARE ---
CASE MANAGEMENT DISCHARGE SUMMARY PATIENT: LUZ JIMENEZ UNIT: [id number] ADM DATE: 03/01/19 AGE: 88 : 30 SEX: M ROOM/BED: D.2212 AUTHOR: FANY,DOC PHYSICIAN: REFERRING PHYSICIAN: LILIANE NELSON MD DATE OF SERVICE: 03/06/19 Discharge Plan Patient Name: LUZ JIMENEZ Facility: [facility]:[place] : 1930 Planned Disposition: Home or Self Care Anticipated Discharge Date: 03/05/19 Discharge Date: 03/05/2019 Expected LOS: 4 Initial Reviewer: [id number] Initial Review Date: 03/01/2019 Generated: 03/06/19 2:49 pm Comments DCP- Discharge Planning Updated by [email or web address]: Erika Verduzco on 03/05/19 4:[address] PATIENT WAS DISCHARGED TO [facility] THIS AM. DCP- Discharge Planning Updated by [id number]: Erika Verduzco on 03/04/19 2:[address] [facility] BOOM CONVEYOR OPERATOR. ADVISED DR ESCOBAR HAD STATED PATIENT COULD TRANSFER TO ACUTE REHAB. HIS NASAL OXYGEN HAS BEEN WEANED TO 4/L VIA NASAL CANNULA. SHE WILL REVIEW CLINICAL AND PLAN FOR TRANSFER ON WEDNESDAY. THEY WILL ACCOMMODATE HIS REQUEST FOR A SINGLE ROOM. DCP- Discharge Planning Updated by [id number]: Megan Hall on 03/01/19 1:[address] Patient Name: LUZ JIMENEZ Admission Status: ER Accout number: [id number] Admission Date: 03-01-2019 : 1930 Admission Diagnosis: Attending: OMAR, Current LOS: 1 Anticipated DC Date: Planned Disposition: Home or Self Care Primary Insurance: MEDICARE A & B Discharge Planning Comments: CM met with patient and to assess discharge planning needs. Patient stated that he is independent with his care at home and plans to return there at discharge. He has a cane, CPAP ([place] [facility]) walker (that he does not use) home O2 concentrator. His will be his set key driver home. 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 Will need to get a walk test before discharge to see if he needs portable O2. CM will continue to follow and assist with DC planning Manager Intranet: Megan Hall DCPIA - Discharge Planning Initial Assessment Updated by [email or web address]: Megan Hall on 03/01/19 2:39 pm * Is the patient Alert and Oriented? Yes * How many steps to enter\exit or inside your home? * PCP DR RICHARD * Pharmacy [facility] * Preadmission Environment Home with Family * ADLs Independent * Equipment Cane CPAP Rolling Walker * Other Equipment O2 CONCENTRATOR * List name and contact numbers for known caregivers / representatives who currently or will assist patient after discharge: SAMIR () [phone] * Verbal permission to speak to the caregivers and representatives has been obtained from the patient. Yes * Community resources currently utilized Other * Please name any agencies selected above. [facility] ([facility]) * Additional services required to return to the preadmission environment? No * Can the patient safely return to the preadmission environment? Yes * Has this patient been hospitalized within the prior 30 days at any hospital? No Coverage Notice Reviewer: [id number] - Megan Hall Notice Issued Date-Time: 03/01/2019 14:00 Notice Type: Patient Choice Letter Notice Delivered To: Patient Relationship to Patient: Metal Roaster Name: Delivery Method: - Caitlyn Days: Prior Verbal Notification: Recipient Understood Notice: Yes Recipient Signature: Yes Med Rec Note Co-signed by Attending: Coverage Notice Comment: patient has a CPAP with [facility] patient Last DP export: 03/05/19 4:25 pm Patient Name: LUZ JIMENEZ Page [id number] at 1349 All edits/amendments must be made on the electronic document DICTATION DATE: 03/06/19 1348 GENERAL II FARMWORKER: ZAFAR 03/06/19 1348 RPT#: [id number] DC DATE:03/05/19 STATUS: DIS IN [facility] [address] [place] [address] END OF REPORT
== END 2019-03-05 13:35 | DRG 291 ==
LOC: D.ER 00:01 → D.MS 03:07 → D.EDHOLD 03:07 → D.MS 03:44
PROVIDERS: Family Medicine; ADMIT Family Medicine; ATTEND Family Medicine
DX: I50.23 Acute on chronic systolic (congestive) heart failure (principal); J15.6 Pneumonia due to other Gram-negative bacteria; J96.91 Respiratory failure, unspecified with hypoxia; J18.9 Pneumonia, unspecified organism; I50.9 Heart failure, unspecified; I11.0 Hypertensive heart disease with heart failure; I25.10 Atherosclerotic heart disease of native coronary artery without angina pectoris; I48.91 Unspecified atrial fibrillation

== ENCOUNTER 2019-03-05 11:11 | Inpatient (IN) | payer MEDICARE, BC ==
[~2019-03-05] VITALS: Ht 172.7 cm; Wt 75.0 kg
--- NOTE | ~2019-03-05 | RHP ---
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 HISTORY OF PRESENT ILLNESS: The patient admitted to inpatient rehab with CHF myopathy. He is an 88-year-old gentleman who presented to ED on 03/01/2019 with worsening dyspnea on exertion, reported his sat was 82% at home. He has got a history of an EF of 40%, zmdws-ki-zwdlolo systolic congestive heart failure. He has had a pacemaker placed in the past. He has got a history of atrial fib, former tobacco use, home O2 requirements, obstructive sleep apnea, multiple myeloma and chronic constipation. He has had coronary artery bypass graft in the past. He has had a pacemaker placed in. He has also had carotid endarterectomy. He was seen in the cardiac clinic on 01/28/2019 with shortness of breath. His pacemaker was interrogated and revealed that he was maintained in a normal sinus rhythm most of the time. He had a chest x-ray, which showed what appeared to be some mild pulmonary edema with moderate sized pleural effusions. He has been closely followed by cardiology and IV diuresis, being monitored closely for electrolyte imbalance and renal functions with diuresis. He is currently on high-flow O2, IV diuretic therapy, IV antibiotics. He has got a proximal muscle weakness and deconditioning. He has got some impaired mobility, high risk for falls and self-care deficit. These are all barriers to his discharge home. Lives at home with his . 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 He has been very deconditioned and only been able to ambulate short distances. He was independent with his mobility and ADLs in the past. He has had to be on home O2. He is currently set up for mod assist for ADLs and mod assist to max assist for mobility. He hopes to return home at his prior level of functioning or possibly even better after his stay. COMORBIDITIES: In this patient include [id number]-kf-yulkadr congestive heart failure, pleural effusion, acute pneumonitis, coronary artery disease, atrial fib, former tobacco use, obstructive sleep apnea, multiple myeloma, chronic constipation, cardiac pacemaker placement, mitral regurg, coronary artery disease. He has had coronary artery bypass grafting in the past status post PTCA, respiratory failure, osteoarthritis, hypertension, old SD, bilateral pleural effusions. PAST MEDICAL HISTORY: Significant for weakness, dentures, hypertension, irregular heart rhythm with pacemaker placement, stents and angioplasty, atrial fib, edema, coronary artery disease, pneumonia, home O2 requirements, BiPAP, apnea, multiple myeloma, constipation, joint problems and history of tobacco use. PAST SURGICAL HISTORY: Includes cataract surgery, coronary artery bypass grafting, pacemaker, stent placement, right knee replacement, right carotid endarterectomy. ALLERGIES: No known drug allergies. CURRENT MEDICATIONS: Include Protonix, he is on 40 mg daily; he is on Floranex HISTORY AND PHYSICAL [id number] STRAND,LUZ C 460 mg daily; he is on diltiazem 180 mg daily; he is on Zithromax 500 mg daily; amiodarone 200 mg daily; furosemide 20 mg b.i.d.; he is on an electrolyte replacement protocol at this time; he is on sotalol 80 mg b.i.d.; Zocor 40 mg at bedtime; Systane eye drops 1 drop b.i.d.; Xopenex 1.25 mg every 8 hours p.r.n.; Mucinex 1200 mg b.i.d.; Colace 100 mg b.i.d.; digoxin 0.125 mg bedtime; Omnicef 300 mg b.i.d.; carvedilol 25 mg b.i.d.; Tessalon Perles 100 mg t.i.d.; aspirin chewable 81 mg daily, and Xanax 0.125 mg t.i.d. HABITS: Does have a history of tobacco use. He no longer smokes. FAMILY HISTORY: Noncontributory. 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 REVIEW OF SYSTEMS: GENERAL: He does complain of some weakness and fatigue. HEENT: Denies cold, cough, or congestion. CARDIOVASCULAR: Denies chest pain. PHYSICAL EXAMINATION: VITAL SIGNS: Stable. GENERAL: An elderly gentleman in no acute distress, alert upon exam. HEENT: Normocephalic and atraumatic. Mucosa moist. NECK: Supple. No lymphadenopathy. LUNGS: Clear at this time. HEART: Does seem to be regular rate and rhythm. ABDOMEN: Benign. EXTREMITIES: No clubbing, cyanosis or edema. NEUROLOGIC: Does have some noted weakness. LABORATORY DATA: Blood work has not been received. ASSESSMENT: This is an 88-year-old gentleman admitted to the rehab with a working diagnosis of congestive heart failure induced myopathy. The patient has potential to make improvement. We instituted the following multidisciplinary therapies include, but not limited to physical, occupational, respiratory, speech, nutritional services, prosthetics and orthotics. Given his complex medical condition and distress for more complications, rehabilitation services cannot be provided at a low level of care such a [facility] facility. PLAN: 1. Admit to [facility] for intensive inpatient therapy to include the following disciplines: A. Physical therapy to improve gait, all transfer skills and bed mobility to a modified independent level. B. Occupational therapy to a modified independent level. C. Case management to assist with discharge planning and placement options. D. Nutrition to assist with nutritional needs. E. Rehabilitation nursing to assist in monitoring the patient's underlying to assist with any type of bowel or bladder management. 2. The patient's current medication and medical care will be continued. 3. The patient will be placed on standard fall precautions. 4. The patient is somewhat resistant to staying here at this time, so we will see what we can do with case management with this patient and hopefully I am HISTORY AND PHYSICAL [id number] LUZ JIMENEZ going to see him again in the a.m. TRANSINT:[id number] Voice Confirmation ID: [id number] DOCUMENT ID: [id number] CHANA notes whether there has been none or any medical/functional change since admission: - No Change since the PAS CHANA attests patient continues to be appropriate for IRF: - Remains appropriate for the ARU LIAT ENGLISH MD CC: [id number] DICTATION DATE: 03/06/19 0848 FINANCIAL AUDITOR: 03/06/19 1105 ADM IN [facility] [address] [place] [address]
[~2019-03-05 11:11] MED LIST changes: +BETAPACE 80 MG80 MG PO; +COLACE100 MG PO; +FLORAJEN3 CAPS460 MG PO; +LANOXIN125 MCG PO; +MUCINEX600 MG PO; +OMNICEF300 MG PO; +PROTONIX40 MG PO; +SYSTANE NIGHTT3.5 GM PO; +TESSALON PERLE100 MG PO; +XOPENEX 1.1.25 MG/3 UPD; +ZITHROMAX500 MG PO
--- NOTE | 2019-03-05 15:35 | NUR ---
PT ARRIVED TO UNIT VIA WHEELCHAIR ACCOMPANIED BY HOSPITAL STAFF AND SPOUSE. PT ASSESSMENT COMPLETED AND ADMISSION PAPERS SIGNED. PT DENIES NEEDS. WCTM.
[2019-03-05 16:22] VITALS: BP 142/55; BMI 25.1
--- NOTE | 2019-03-05 17:27 | NUR ---
PT EATING DINNER, DENIES NEEDS. WCTM.
--- NOTE | 2019-03-05 20:31 | NUR ---
THE PATIENT IS AWAKE AND LYING IN BED WHEN STAFF NETERED HIS ROOM. BED IS IN THE LOW POSITION WITH SIDERAILS X2 AND CALL LIGHT WITHIN REACH. THE PATIENT WAS EDUCATED ON THE USE OF A CALL LIGHT. THE PATIENT APPEARS COMFORTABLE WITH NO QUESTIONS OR CONCERNS AT THIS TIME.
[2019-03-05 22:39] VITALS: BP 133/55
[2019-03-05 23:41] VITALS: BP 119/50
--- NOTE | 2019-03-06 02:48 | NUR ---
THE PATIENT IS AWAKE AND TALKING TO STAFF. HE HAS NO QUESTIONS OR CONCERNS AT THIS TIME. DAUGHTER IN [facility].
[2019-03-06 08:00] VITALS: BP 110/45
--- NOTE | 2019-03-06 08:09 | NUR ---
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 DTR IN ROOM TRYING TO CONVIENCE PT TO STAY. HE REFUSED LAB DRAW THIS AM. DR ENGLISH NOTIFIED.
--- NOTE | 2019-03-06 10:42 | NUR ---
LAYING IN BED RESTING QUIETLY. OXYGEN IN PLACE.
--- NOTE | 2019-03-06 10:58 | NUR ---
PATIENT ADMITTED TO REHAB FROM ACUTE FLOOR. PCP IS DR. TORRES. DME AT HOME IS CANE, WALKER, C-PAP AND O2 FROM [facility] PATIENT. DISCHARGE PLANS ARE FOR PATIENT TO RETURN HOME AT DISCHARGE. WILL CONTINUE TO FOLLOW WITH PATIENT.
[2019-03-06 12:27] LABS: BASOPHILS 0.5 % (0-2); HEMATOCRIT 38.7 % (42.0-54.0); HEMOGLOBIN 12.9 g/dL (13.5-17.5); IMMATURE GRANULOCYTES 0.2 % (0-5); LYMPHOCYTES 23.9 % (15-50); MCH 30.3 pg (26.0-34.0); MCHC 33.3 g/dL (31.0-37.0); MCV 90.8 fL (80.0-100.0); MONOCYTES 13.2 % (2-11); NEUTROPHILS 59.2 % (40-80); PLATELET COUNT 227 10x3/uL (130-400); RBC 4.26 10x6/uL (4.20-6.10); WBC 12.1 10x3/uL (4.8-10.8)
[2019-03-06 12:36] LABS: ANION GAP 10.8 mmol/L (8-16); CALCIUM 8.1 mg/dL (8.5-10.1); CARBON DIOXIDE 31.3 mmol/L (21.0-32.0); CREATININE - SERUM 1.3 mg/dL (0.6-1.3); POTASSIUM - SERUM 4.1 mmol/L (3.5-5.1)
--- NOTE | 2019-03-06 13:32 | NUR ---
SITTING UP IN BED TALKING TO DTR. DR KIRK JUST CAME AND DONE INJECTION TO RT SHOULDER. HE C/O PAIN TO RT SHOULDER DUE TO LIFTING WEIGHTS. DTR STAYS WITH HIM.
[2019-03-06 13:34] VITALS: Ht 172.7 cm; Wt 75.0 kg
--- NOTE | 2019-03-06 16:53 | NUR ---
SITTING UP IN BED RESTING QUIETLY. FAMILY IN ROOM. CALL LIGHRT IN REACH
[2019-03-06 19:00] VITALS: BP 145/58
--- NOTE | 2019-03-06 19:07 | NUR ---
GREETED PATIENT AND INRODUCED MYSELF HIS NURSE. PATIENT IS LAYING IN BED IN SUPINE POSITION WITH 02 AT 3L VIA NC. PATIENT HAD NOT EATEN ANY OF HIS DINNER AND STATED THAT HE JUST COULDNT SWALLOW THE FOOD. EDUCATION WAS GIVEN TO PATIENT ABOUT EATING TO GET BETTER. PATIENT STATED THAT HE WOULD TRY SOME ENSURE. BROUGHT PATIENT STRAWBERRY AND VANILLA ENSURE. PATIENT WAS ABLE TO DRINK BOTH. CALL LIGHT IN REACH.
--- NOTE | 2019-03-07 01:03 | NUR ---
PATIENT ASLEEP LAYING IN SUPINE POSITION. HOB AT 30 DEGREES. RESPIRATIONS EVEN. NO SIGNS OF DISTRESS. CALL LIGHT IN REACH.
[2019-03-07 08:00] VITALS: BP 127/53
--- NOTE | 2019-03-07 13:55 | NUR ---
SITTING IN WC IN ROOM TALKING TO FAMILY. DENIES NEEDS.
--- NOTE | 2019-03-07 18:06 | NUR ---
SITTING UP IN BED IN ROOM EATING SUPPER. VISITING. DENIES NEEDS OR C/O. CALL LIGHT IN REACH
[2019-03-07 19:00] VITALS: BP 131/47
--- NOTE | 2019-03-07 19:17 | NUR ---
PATIENT IS RESTING IN HIS BED. HE DENIES ANY NEEDS AT THIS TIME. BED IS DOWN LOW WITH SIDE RAILS UP X2 AND CALL LIGHT IS IN REACH.
--- NOTE | 2019-03-08 00:02 | NUR ---
PATIENT IS SLEEPING. HIS IS AT BEDSIDE. HIS BED IS DOWN LOW WITH SIDE RAILS UP X2 AND CALL LIGHT IS IN REACH.
--- NOTE | 2019-03-08 04:02 | NUR ---
PATIENT IS SLEEPING. SPOUSE IS AT HIS SIDE. BED IS DOWN LOW WITH SIDE RAILS UP X2 AND CALL LIGHT IS IN REACH.
--- NOTE | 2019-03-08 08:00 | NUR ---
SHIFT ASSMT COMPLETED.
--- NOTE | 2019-03-08 13:39 | NUR ---
Nutrition Follow Up: Pt stated that his appetite is fair. He said that he does not eat much meat but likes Boost. He agreed to drink it TID. RD encouraged pt to continue increasing po intake as able and to make staff aware of any food preferences. Diet: AHA PO Intake: 47% meal avg No BM since admit Labs reviewed Meds noted including Lasix Rec continue current diet. Will order Boost TID and will continue to honor food preferences. RD following.
[2019-03-08 14:00] VITALS: BP 150/49
[2019-03-08 19:00] VITALS: BP 135/52
--- NOTE | 2019-03-08 19:15 | NUR ---
PATIENT IS IN HIS BED AND SPEAKING TO HIS . THEY DENY ANY NEEDS. BED IS DOWN LOW. CALL LIGHT IN REACH.
--- NOTE | 2019-03-09 | NUR ---
PATIENT IS SLEEPING. SPOUSE IS AT HIS SIDE. HIS BED IS DOWN LOW WITH SIDE RAILS UP X2. CALL LIGHT IS IN REACH.
--- NOTE | 2019-03-09 04:02 | NUR ---
PATIENT IS SLEEPING. SPOUSE IS AT HIS SIDE. BED IS DOWN LOW WITH SIDE RAILS UP X2. CALL LIGHT IS IN REACH.
[2019-03-09 08:00] VITALS: BP 149/68
--- NOTE | 2019-03-09 08:00 | NUR ---
SHIFT ASSMT COMPLETED.
[2019-03-09 19:00] VITALS: BP 151/62
--- NOTE | 2019-03-09 19:30 | NUR ---
PATIENT IS RESTING IN HIS BED. SPOUSE IS AT BEDSIDE. BED IS DOWN LOW WITH SIDE RAILS UP X2. CALL LIGHT IN REACH.
--- NOTE | 2019-03-10 00:08 | NUR ---
PATIENT IS SLEEPING. BED IS DOWN LOW WITH SIDE RAILS UP X2. CALL LIGHT IS IN REACH.
--- NOTE | 2019-03-10 04:05 | NUR ---
PATIENT IS SLEEPING. HIS REMAINS AT BEDSIDE. BED IS DOWN LOW. SIDE RAILS UP X2. CALL LIGHT IN REACH.
[2019-03-10 06:40] LABS: ANION GAP 12.8 mmol/L (8-16); CARBON DIOXIDE 26.9 mmol/L (21.0-32.0); CREATININE - SERUM 1.3 mg/dL (0.6-1.3); POTASSIUM - SERUM 4.7 mmol/L (3.5-5.1)
[2019-03-10 07:02] LABS: LYMPHOCYTES 15.6 % (15-50); MCH 30.2 pg (26.0-34.0); MCHC 33.3 g/dL (31.0-37.0); MCV 90.7 fL (80.0-100.0); MEAN PLATELET VOLUME 8.9 fL (7.4-10.4); NEUTROPHILS 76.3 % (40-80); PLATELET COUNT 248 10x3/uL (130-400); RBC 3.97 10x6/uL (4.20-6.10); RDW 14.7 % (11.5-14.5); WBC 9.2 10x3/uL (4.8-10.8)
[2019-03-10 08:00] VITALS: BP 147/70
--- NOTE | 2019-03-10 08:09 | NUR ---
SITTING UP FOR BREAKFAST. IN ROOM AND HAS SPENT THE NIGHT WITH PT. HE IS ANXIOUS TO DC HOME. DR ENGLISH ON FLOOR, WILL NOTIFY HIM OF PT REQUEST.
--- NOTE | 2019-03-10 10:43 | NUR ---
IN THERAPY. NURSE IS STILL BLADDER TRAINING PT.
--- NOTE | 2019-03-10 11:17 | NUR ---
patient discharging home today with family. janeth at home will provide therpay at home. [facility] will deliver a rolling walker to patient. dr. leary 03/24/19 @ 11:30, dr. borges 03/28/19 @ 2:10. patient choice form for home health and [facility] forms signed, copy given to patient and filed in chart. discharge instructions with fim data faxed to pcp, home health and reviewed with patient.
--- NOTE | 2019-03-10 12:35 | NUR ---
DC HOME WITH ALL PERSONAL BELONGINGS. REVIEWED MEDS. DC PLAN AND FOLLOW UP WITH PT AND . MEDS CALLED INTO [facility] IN [place]. PT WILL SCOOP OPERATOR HIS ROLLING WALKER AT [facility] HIM SELF TODAY.
[2019-03-11] MEDS ORDERED: COZAAR100 MG PO (14:25)
== END 2019-03-10 12:21 | disposition home health service (06) | DRG 91 ==
LOC: D.REHAB 11:11
PROVIDERS: ADMIT Emergency Medicine; ATTEND Emergency Medicine
PROC: 3E0U33Z Introduction of Anti-inflammatory into Joints, Percutaneous Approach (ICD-10-PCS; principal; 2019-03-06)
DX: G72.89 Other specified myopathies (principal); I50.23 Acute on chronic systolic (congestive) heart failure; J18.9 Pneumonia, unspecified organism; J96.22 Acute and chronic respiratory failure with hypercapnia; J96.21 Acute and chronic respiratory failure with hypoxia; C90.00 Multiple myeloma not having achieved remission; I13.0 Hypertensive heart and chronic kidney disease with heart failure and stage 1 through stage 4 chronic kidney disease, or unspecified chronic kidney disease; I11.0 Hypertensive heart disease with heart failure; I25.10 Atherosclerotic heart disease of native coronary artery without angina pectoris; I48.91 Unspecified atrial fibrillation; G47.33 Obstructive sleep apnea (adult) (pediatric); K59.09 Other constipation; Z95.1 Presence of aortocoronary bypass graft; Z95.0 Presence of cardiac pacemaker; M19.90 Unspecified osteoarthritis, unspecified site; E11.22 Type 2 diabetes mellitus with diabetic chronic kidney disease; N18.9 Chronic kidney disease, unspecified; M25.511 Pain in right shoulder

== ENCOUNTER 2019-03-11 13:53 | Inpatient (IN) | payer MEDICARE, BC ==
[~2019-03-11] VITALS: Ht 172.7 cm; Wt 74.8 kg
[2019-03-11 14:15] VITALS: BP 143/62
[2019-03-11] MEDS ORDERED: COZAAR100 MG PO (14:25)
[2019-03-11 14:43] LABS: BASOPHILS 0 % (0-2); EOSINOPHILS 0 % (0-7); HEMATOCRIT 39.7 % (42.0-54.0); HEMOGLOBIN 13.2 g/dL (13.5-17.5); IMMATURE GRANULOCYTES 0.4 % (0-5); LYMPHOCYTES 3.4 % (15-50); MCH 30.2 pg (26.0-34.0); MCHC 33.2 g/dL (31.0-37.0); MCV 90.8 fL (80.0-100.0); MEAN PLATELET VOLUME 9.1 fL (7.4-10.4); MONOCYTES 9.8 % (2-11); NEUTROPHILS 86.4 % (40-80); PLATELET COUNT 254 10x3/uL (130-400); RBC 4.37 10x6/uL (4.20-6.10); RDW 15.5 % (11.5-14.5); WBC 19.8 10x3/uL (4.8-10.8)
[2019-03-11 14:53] LABS: APTT 24.5 SECONDS (22.8-39.4); INR 1.15 (0.85-1.17); PROTIME 14.2 SECONDS (11.6-15.0)
[2019-03-11 14:57] LABS: ALBUMIN 3.1 g/dL (3.4-5.0); ALKALINE PHOSPHATASE 97 U/L (46-116); ALT (SGPT) 76 U/L (10-68); BILIRUBIN - TOTAL 0.36 mg/dL (0.2-1.3); CALC OSMOLALITY 292 mosm/kg (275-300); CALCIUM 7.9 mg/dL (8.5-10.1); CARBON DIOXIDE 24.8 mmol/L (21.0-32.0); CHLORIDE - SERUM 104 mmol/L (98-107); CREATININE - SERUM 1.5 mg/dL (0.6-1.3); GLUCOSE 131 mg/dL (74-106); POTASSIUM - SERUM 4.6 mmol/L (3.5-5.1); PROTEIN - SERUM 7.2 g/dL (6.4-8.2); SODIUM 139 mmol/L (136-145); UREA NITROGEN 49 mg/dL (7-18); eGFR NON AFRICAN AMERICAN 47 mL/min (90-120)
[2019-03-11 15:09] LABS: CKMB 1.3 U/L (0.0-3.6); CREATINE KINASE 28 UL (21-232); PRO BNP 4350 pg/mL (0-450); TROPONIN-I 0.059 ng/mL (0.000-0.060)
[2019-03-11 15:15] VITALS: BP 134/54
[2019-03-11 19:45] VITALS: BP 117/68; BMI 25.1
[2019-03-11 20:00] VITALS: BP 141/58
[2019-03-11 20:39] LABS: APPEARANCE CLEAR (CLEAR); BILIRUBIN NEGATIVE (NEGATIVE); COLOR YELLOW (YELLOW); GLUCOSE NEGATIVE (NEGATIVE); KETONE NEGATIVE (NEGATIVE); NITRITE NEGATIVE (NEGATIVE); PROTEIN TRACE mg/dL (NEGATIVE); SPECIFIC GRAVITY 1.015 (1.005-1.020); UROBILINOGEN NORMAL (NORMAL)
[2019-03-12] VITALS: BP 151/41
[2019-03-12 03:00] VITALS: BP 143/56
[2019-03-12 05:35] LABS: BASOPHILS 0.1 % (0-2); EOSINOPHILS 0.1 % (0-7); HEMATOCRIT 35.1 % (42.0-54.0); HEMOGLOBIN 11.5 g/dL (13.5-17.5); IMMATURE GRANULOCYTES 0.3 % (0-5); LYMPHOCYTES 12.3 % (15-50); MCH 29.6 pg (26.0-34.0); MCHC 32.8 g/dL (31.0-37.0); MCV 90.5 fL (80.0-100.0); MONOCYTES 13.2 % (2-11); RBC 3.88 10x6/uL (4.20-6.10); RDW 15.7 % (11.5-14.5)
[2019-03-12 05:37] LABS: PLATELET COUNT 198 10x3/uL (130-400); WBC 13.7 10x3/uL (4.8-10.8)
[2019-03-12 05:46] LABS: ANION GAP 11.3 mmol/L (8-16); CALCIUM 7.9 mg/dL (8.5-10.1); CARBON DIOXIDE 28.1 mmol/L (21.0-32.0); CREATININE - SERUM 1.4 mg/dL (0.6-1.3); POTASSIUM - SERUM 4.4 mmol/L (3.5-5.1)
[2019-03-12 09:08] VITALS: BP 137/42
[2019-03-12 12:18] VITALS: BP 129/57
[2019-03-12 17:06] VITALS: BP 132/56
[2019-03-12 20:00] VITALS: BP 114/35
[2019-03-13] VITALS: BP 154/55
[2019-03-13 03:00] VITALS: BP 122/47
[2019-03-13 04:40] LABS: BASOPHILS 0.1 % (0-2); EOSINOPHILS 1.4 % (0-7); HEMATOCRIT 35.9 % (42.0-54.0); HEMOGLOBIN 11.7 g/dL (13.5-17.5); IMMATURE GRANULOCYTES 0.3 % (0-5); LYMPHOCYTES 10.8 % (15-50); MCH 29.7 pg (26.0-34.0); MCHC 32.6 g/dL (31.0-37.0); MCV 91.1 fL (80.0-100.0); MEAN PLATELET VOLUME 9.1 fL (7.4-10.4); MONOCYTES 10.9 % (2-11); NEUTROPHILS 76.5 % (40-80); PLATELET COUNT 187 10x3/uL (130-400); RBC 3.94 10x6/uL (4.20-6.10); RDW 15.9 % (11.5-14.5); WBC 11.5 10x3/uL (4.8-10.8)
[2019-03-13 04:44] LABS: ANION GAP 11.3 mmol/L (8-16); CALCIUM 7.5 mg/dL (8.5-10.1); CARBON DIOXIDE 28.1 mmol/L (21.0-32.0); CREATININE - SERUM 1.4 mg/dL (0.6-1.3); POTASSIUM - SERUM 4.4 mmol/L (3.5-5.1)
[2019-03-13 08:46] VITALS: BP 136/83
[2019-03-13 12:49] VITALS: Ht 172.7 cm; Wt 74.8 kg
[2019-03-13 13:17] VITALS: BP 124/45
[2019-03-13 16:47] VITALS: BP 143/46
[2019-03-13 21:01] VITALS: BP 152/72
[2019-03-14 01:05] VITALS: BP 139/80
[2019-03-14 05:37] VITALS: BP 133/50
[2019-03-14 05:42] LABS: BASOPHILS 0.1 % (0-2); EOSINOPHILS 5.2 % (0-7); HEMATOCRIT 38.6 % (42.0-54.0); HEMOGLOBIN 12.6 g/dL (13.5-17.5); IMMATURE GRANULOCYTES 0.6 % (0-5); LYMPHOCYTES 15.3 % (15-50); MCH 29.4 pg (26.0-34.0); MCHC 32.6 g/dL (31.0-37.0); MCV 90.2 fL (80.0-100.0); MONOCYTES 12.8 % (2-11); PLATELET COUNT 194 10x3/uL (130-400); RBC 4.28 10x6/uL (4.20-6.10); RDW 15.8 % (11.5-14.5); WBC 11.9 10x3/uL (4.8-10.8)
[2019-03-14 05:57] LABS: ANION GAP 9.3 mmol/L (8-16); CALCIUM 7.8 mg/dL (8.5-10.1); CARBON DIOXIDE 28.3 mmol/L (21.0-32.0); CREATININE - SERUM 1.3 mg/dL (0.6-1.3); POTASSIUM - SERUM 4.6 mmol/L (3.5-5.1)
[2019-03-14 08:57] VITALS: BP 143/54
[2019-03-14 17:21] VITALS: BP 128/68
[2019-03-14 17:38] VITALS: BP 128/67
[2019-03-14 22:01] VITALS: BP 136/49
[2019-03-15 05:09] VITALS: BP 131/47
[2019-03-15 05:21] LABS: BASOPHILS 0.2 % (0-2); EOSINOPHILS 6.2 % (0-7); HEMATOCRIT 40.2 % (42.0-54.0); HEMOGLOBIN 13.2 g/dL (13.5-17.5); IMMATURE GRANULOCYTES 0.5 % (0-5); LYMPHOCYTES 19.9 % (15-50); MCH 29.7 pg (26.0-34.0); MCHC 32.8 g/dL (31.0-37.0); MCV 90.3 fL (80.0-100.0); MEAN PLATELET VOLUME 9.6 fL (7.4-10.4); MONOCYTES 12.5 % (2-11); NEUTROPHILS 60.7 % (40-80); PLATELET COUNT 209 10x3/uL (130-400); RBC 4.45 10x6/uL (4.20-6.10); RDW 15.8 % (11.5-14.5); WBC 12.5 10x3/uL (4.8-10.8)
[2019-03-15 05:33] LABS: ANION GAP 13.1 mmol/L (8-16); CALCIUM 7.8 mg/dL (8.5-10.1); CARBON DIOXIDE 27.3 mmol/L (21.0-32.0); CREATININE - SERUM 1.3 mg/dL (0.6-1.3); POTASSIUM - SERUM 4.4 mmol/L (3.5-5.1)
[2019-03-15 09:23] VITALS: BP 138/47
[2019-03-15 14:17] VITALS: BP 148/64
[2019-03-15] MEDS ORDERED: Lovenox INJ SC (16:35)
[2019-03-15] MEDS ORDERED: VANCOMYCIN 1 GM/1 G1 IV (16:36)
[2019-03-15] MEDS ORDERED: XOPENEX 1.1.25 MG/3 UPD (16:36)
[2019-03-15] MEDS ORDERED: IPRAT-ALBUT 0.5-3 ML INH (16:36)
[2019-03-15] MEDS ORDERED: MERREM 1 GM/NS 11 G1 IVPB (16:36)
--- NOTE | 2019-03-15 16:44 | MORECARE ---
CASE MANAGEMENT DISCHARGE SUMMARY PATIENT: LUZ JIMENEZ UNIT: [id number] ADM DATE: 03/11/19 AGE: 88 : 30 SEX: M ROOM/BED: D.2206 AUTHOR: MARE SOARES PHYSICIAN: REFERRING PHYSICIAN: ELIEZER KINGSTON MD DATE OF SERVICE: 03/15/19 Discharge Plan Patient Name: LUZ JIMENEZ [facility] [facility] 1930 Planned Disposition: Inpatient Rehab Anticipated Discharge Date: Discharge Date: Expected LOS: Initial Reviewer: [email or web address] Initial Review Date: 03/11/2019 Generated: 03/15/19 5:44 pm Coverage Notice Reviewer: [id number] - Megan Hall Notice Issued Date-Time: 03/15/2019 16:00 Notice Type: IM Discharge Notice Notice Delivered To: Patient Relationship to Patient: Voice Teacher Name: Delivery Method: HAND - Hand Delivered Caitlyn Days: Prior Verbal Notification: Recipient Understood Notice: Yes Recipient Signature: Yes Med Rec Note Co-signed by Attending: Coverage Notice Comment: Patient Name: LUZ JIMENEZ Page [phone] at 1644 All edits/amendments must be made on the electronic document DICTATION DATE: 03/15/191643 BRANCH OR DEPARTMENT CHIEF LIBRARIAN: ZAFAR 03/15/191643 RPT#: [id number] DC DATE: STATUS: ADM IN [facility] [address] [place] [address] END OF REPORT
--- NOTE | 2019-03-15 16:54 | MORECARE ---
CASE MANAGEMENT DISCHARGE SUMMARY PATIENT: LUZ JIMENEZ UNIT: [id number] ADM DATE: 03/11/19 AGE: 88 : 30 SEX: M ROOM/BED: D.2206 AUTHOR: MARE SOARES PHYSICIAN: REFERRING PHYSICIAN: ELIEZER KINGSTON MD DATE OF SERVICE: 03/15/19 Discharge Plan Patient Name: LUZ JIMENEZ Facility: [facility]:[place] : 1930 Planned Disposition: Inpatient Rehab Anticipated Discharge Date: Discharge Date: Expected LOS: Initial Reviewer: [id number] Initial Review Date: 03/11/2019 Generated: 03/15/19 5:54 pm Comments DCP- Discharge Planning Updated by [email or web address]: Megan Hall on 03/15/19 3:[address] Patient Name: LUZ JIMENEZ Admission Status: ER Accout number: [id number] Admission Date: 03-11-2019 : 1930 Admission Diagnosis:PNEUMONIA, UNSPECIFIED ORGANISM Attending: ELIEZER KINGSTON Current LOS: 4 Anticipated DC Date: Planned Disposition: Inpatient Rehab Primary Insurance: MEDICARE A & B Discharge Planning Comments: CM met with patient to assess his discharge planning needs. He plans to go to inpatient rehab when he is discharged today. [facility] served and explained. He has a cpap machine and O2 concentrator at home. He presley NOT have portable O2 and will need a walk test when he is discharged again. I called and spoke to Yue about this. He uses [facility] for his Cpap needs. He will be discharged this evening to inpatient rehab. CM to follow and assist with dc planning as needed Air Pollution Inspector: Megan Hall Coverage Notice Reviewer: [id number] - Megan Hall Notice Issued Date-Time: 03/15/2019 16:00 Notice Type: IM Discharge Notice Notice Delivered To: Patient Relationship to Patient: Knitted Garment Finisher Name: Delivery Method: HAND - Hand Delivered Caitlyn Days: Prior Verbal Notification: Recipient Understood Notice: Yes Recipient Signature: Yes Med Rec Note Co-signed by Attending: Coverage Notice Comment: Last DP export: 03/15/19 3:44 p Patient Name: LUZ JIMENEZ Page [phone] at 1654 All edits/amendments must be made on the electronic document DICTATION DATE: 03/15/191653 LICENSE REGISTRATION EXAMINER: ZAFAR 03/15/191653 RPT#: [id number] DC DATE: STATUS: ADM IN [facility] [address] [place] [address] END OF REPORT
[2019-03-15 18:07] VITALS: BP 130/44
--- NOTE | 2019-03-16 16:16 | MORECARE ---
CASE MANAGEMENT DISCHARGE SUMMARY PATIENT: LUZ JIMENEZ UNIT: [id number] ADM DATE: 03/11/19 AGE: 88 : 30 SEX: M ROOM/BED: D.2206 AUTHOR: MARE SOARES PHYSICIAN: REFERRING PHYSICIAN: ELIEZER KINGSTON MD DATE OF SERVICE: 03/16/19 Discharge Plan Patient Name: LUZ JIMENEZ Facility: [facility]:[place] : 1930 Planned Disposition: Inpatient Rehab Anticipated Discharge Date: Discharge Date: 03/15/2019 Expected LOS: Initial Reviewer: [email or web address] Initial Review Date: 03/11/2019 Generated: 03/16/19 5:15 pm Comments DCP- Discharge Planning Updated by [id number]: Megan Hall on 03/15/19 3:[address] Patient Name: LUZ JIMENEZ Admission Status: ER Accout number: [id number] Admission Date: 03-11-2019 : 1930 Admission Diagnosis:PNEUMONIA, UNSPECIFIED ORGANISM Attending: ELIEZER KINGSTON Current LOS: 4 Anticipated DC Date: Planned Disposition: Inpatient Rehab Primary Insurance: MEDICARE A & B Discharge Planning Comments: CM met with patient to assess his discharge planning needs. He plans to go to inpatient rehab when he is discharged today. [facility] served and explained. He has a cpap machine and O2 concentrator at home. He presley NOT have portable O2 and will need a walk test when he is discharged again. I called and spoke to Yue about this. He uses [facility] for his Cpap needs. He will be discharged this evening to inpatient rehab. CM to follow and assist with dc planning as needed Hand Profiler: Megan Hall Coverage Notice Reviewer: [id number] - Megan Hall Notice Issued Date-Time: 03/15/2019 16:00 Notice Type: IM Discharge Notice Notice Delivered To: Patient Relationship to Patient: Aws Architect Name: Delivery Method: HAND - Hand Delivered Caitlyn Days: Prior Verbal Notification: Recipient Understood Notice: Yes Recipient Signature: Yes Med Rec Note Co-signed by Attending: Coverage Notice Comment: Last DP export: 03/15/19 3:54 p Patient Name: LUZ JIMENEZ Page [phone] at 1616 All edits/amendments must be made on the electronic document DICTATION DATE: 03/16/191614 BOX SEALING MACHINE FEEDER: ZAFAR 03/16/191614 RPT#: [id number] DC DATE:03/15/19 STATUS: DIS IN [facility] [address] [place] [address] END OF REPORT
== END 2019-03-15 18:42 | DRG 193 ==
LOC: D.ER 13:53 → D.MS 15:15 → D.EDHOLD 15:15 → D.MS 16:25 → D.SDCHOLD 03-14 13:57 → D.MS 03-14 14:02
PROVIDERS: Emergency Medicine; ADMIT Internal Medicine Nephrology; ATTEND Internal Medicine Nephrology
DX: J18.9 Pneumonia, unspecified organism (principal); J96.21 Acute and chronic respiratory failure with hypoxia; N17.9 Acute kidney failure, unspecified; I50.22 Chronic systolic (congestive) heart failure; J44.0 Chronic obstructive pulmonary disease with (acute) lower respiratory infection; I11.0 Hypertensive heart disease with heart failure; I25.10 Atherosclerotic heart disease of native coronary artery without angina pectoris

== ENCOUNTER 2019-03-15 19:46 | Inpatient (IN) | payer MEDICARE, BC ==
[~2019-03-15] VITALS: Ht 172.7 cm; Wt 72.6 kg
[2019-03-15 19:00] VITALS: BP 98/55
--- NOTE | 2019-03-15 19:10 | NUR ---
PT ARRIVED TO REHAB VIA WHEELCHAIR ACCOMPANIED WITH AND STAFF.
[~2019-03-15 19:46] MED LIST changes: +IPRAT-ALBUT 0.5-3 ML INH; +Lovenox INJ SC; +MERREM 1 GM/NS 11 G1 IVPB; +VANCOMYCIN 1 GM/1 G1 IV
[2019-03-15 19:55] VITALS: BP 120/80
--- NOTE | 2019-03-15 22:00 | NUR ---
PT LYING IN BED. IN ROOM. DENIES NEEDS OR PAIN. BED IN LOW.SIDE RAILS X2. A/O X4. LUNGS CLEAR. RESP EVEN AND UNLABORED. PT ON O2 AT 2L. WEARS CPAP AT NIGHT. IV TO R FOREARM AND INTACT, FLUSHES WITH NO COMPLICATIONS. BOWEL ACTIVE X4. USES URINAL AND USES WHEELCHAIR TO GET TO AND FROM BATHROOM. BM 03/15/19. TM
--- NOTE | 2019-03-16 02:30 | NUR ---
PT PRESSED CALL LIGHT AND ASKED IF THIS NURSE WOULD CHECK HIS PULSE OX. O2 STAT WAS 97% AND HE STATED HE JUST WANTED TO CHECK. DENIES FURTHER NEEDS. CALL LIGHT IN REACH. SARA
--- NOTE | 2019-03-16 04:19 | NUR ---
PT IN BED LOW POSITION, EYES CLOSED, AROUSES TO VOICE, FLUIDS AND CALL LIGHT WITHIN REACH, NO NEEDS NOTED
[2019-03-16 07:32] LABS: BASOPHILS 0.2 % (0-2); EOSINOPHILS 5.6 % (0-7); HEMATOCRIT 40.5 % (42.0-54.0); HEMOGLOBIN 13.5 g/dL (13.5-17.5); IMMATURE GRANULOCYTES 0.4 % (0-5); LYMPHOCYTES 18.6 % (15-50); MCHC 33.3 g/dL (31.0-37.0); MEAN PLATELET VOLUME 8.9 fL (7.4-10.4); MONOCYTES 11.2 % (2-11); PLATELET COUNT 177 10x3/uL (130-400); RDW 15.8 % (11.5-14.5); WBC 11.6 10x3/uL (4.8-10.8)
--- NOTE | 2019-03-16 07:49 | NUR ---
RESTING QUIETLY IN BED. NO S/S DISTRESS NOTED. CALL LIGHT IN REACH
[2019-03-16 07:57] LABS: ANION GAP 10.9 mmol/L (8-16); CALCIUM 8.1 mg/dL (8.5-10.1); CARBON DIOXIDE 28.5 mmol/L (21.0-32.0); CREATININE - SERUM 1.1 mg/dL (0.6-1.3); POTASSIUM - SERUM 4.4 mmol/L (3.5-5.1); VANCOMYCIN - TROUGH 16.2 ug/mL (10.0-20.0)
[2019-03-16 08:00] VITALS: BP 141/51
[2019-03-16 09:16] VITALS: Ht 172.7 cm; Wt 72.6 kg
[2019-03-16 19:48] VITALS: BP 120/40
--- NOTE | 2019-03-16 20:05 | NUR ---
PT LYING IN BED. CALL LIGHT IN REACH. DENIES NEEDS OR PAIN AT THIS TIME. BED IN LOW SIDE RAILS X2. RESP EVEN AND UNLABORED. O2 ON 2L. CPAP BEDSIDE WHEN READY TO PUT ON. IN ROOM. A/O X4. FORGETFUL AT TIMES AND WILL ASK THE SAME QUESTIONS OVER AND OVER. IV INTACT. BOWEL ACTIVE X4. TAKES MEDS WHOLE BUT MUST BE SITTING ALL THE WAY UP IN BED. WILL CONTINUE TO MONITOR.
--- NOTE | 2019-03-17 00:30 | NUR ---
I have reviewed this patient and I concur with the Shift Assessment completed by the Licensed Practical Nurse today this shift.
--- NOTE | 2019-03-17 01:22 | NUR ---
PT SITTING UP IN BED RESTING QUIETLY. CALL LIGHT IN REACH. NO SIGNS OF DISTRESS OR PAIN. CPAP ON. WCTM
[2019-03-17 05:53] LABS: BASOPHILS 0.2 % (0-2); EOSINOPHILS 4.3 % (0-7); HEMATOCRIT 37.3 % (42.0-54.0); HEMOGLOBIN 12.3 g/dL (13.5-17.5); IMMATURE GRANULOCYTES 0.3 % (0-5); MCH 29.8 pg (26.0-34.0); MCV 90.3 fL (80.0-100.0); MEAN PLATELET VOLUME 9.3 fL (7.4-10.4); MONOCYTES 10.2 % (2-11); PLATELET COUNT 185 10x3/uL (130-400); RBC 4.13 10x6/uL (4.20-6.10); RDW 15.8 % (11.5-14.5); WBC 12.2 10x3/uL (4.8-10.8)
--- NOTE | 2019-03-17 06:07 | NUR ---
PT SITTING UP IN BED. CALL LIGHT IN REACH. DENIES NEEDS AT THIS TIME. IN ROOM. IV RUNNING. WCTM
[2019-03-17 06:13] LABS: ANION GAP 11.4 mmol/L (8-16); CALCIUM 7.8 mg/dL (8.5-10.1); CREATININE - SERUM 1.1 mg/dL (0.6-1.3); POTASSIUM - SERUM 4.4 mmol/L (3.5-5.1)
--- NOTE | 2019-03-17 08:06 | NUR ---
SITTING UP IN BED WAITING FOR BREAKFAST. IS ORIENTED AND IRRITATED ABOUT BEING SERVED BREAKFAST WHEN HE IS NOT HUNGRY. IN ROOM WITH PT. CALL LIGHT IN REACH
[2019-03-17 08:14] VITALS: BP 127/48
--- NOTE | 2019-03-17 12:21 | NUR ---
SITTING UP IN WC IN ROOM. DENIES INCREASED SOB. IS WEAK AND NEEDS ASST GETTING UP AND DOWN FROM BED AND WC.
--- NOTE | 2019-03-17 15:12 | NUR ---
LAYING DOWN IN BED WITH EYES CLOSED. OXYGEN IN PLACE. RESP EFFORT NON LABORED. CALL LIGHT IN REACH
--- NOTE | 2019-03-17 19:20 | NUR ---
PATIENT IS RESTING IN HIS BED. HE DENIES ANY NEEDS. HIS SPOUSE IS AT BEDSIDE. BED IS DOWN LOW WITH SIDE RAILS UP X2. CALL LIGHT IS IN REACH.
[2019-03-17 21:56] VITALS: BP 131/42
--- NOTE | 2019-03-17 22:41 | NUR ---
PT IS RESTING QUIETLY IN BED WITH EYES CLOSED. RESPS ARE EVEN AND UNLABORED. NO ACUTE DISTRESS NOTED.
--- NOTE | 2019-03-18 01:15 | NUR ---
RESTING IN BED WITH EYES CLOSED.
--- NOTE | 2019-03-18 04:56 | NUR ---
PT VOICED COMPLAINT OF BEING COLD. WARM BLANKET PROVIDED. PT VOICED RELIEF. NO FURTHER NEEDS VOICED.
[2019-03-18 08:00] VITALS: BP 143/61
--- NOTE | 2019-03-18 08:00 | NUR ---
SHIFT ASSMT COMPLETED.CL IN REACH.
--- NOTE | 2019-03-18 12:00 | NUR ---
EATING LUNCH.CL IN REACH.
--- NOTE | 2019-03-18 16:00 | NUR ---
FAMILY AND FRIENDS VISITING.
[2019-03-18 17:55] VITALS: BP 128/63
--- NOTE | 2019-03-18 19:41 | NUR ---
PT IS RESTING IN BED WITH EYES OPEN. ALERT AND ORIENTED X 3. PT DENIES ACUTE PAIN OR DISCOMFORT AT THIS TIME. NO NEEDS VOICED. SPOUSE IS IN ROOM. O2 IS ON @ 2LPM PER NC. NO SOB NOTED. IV INFUSING TO LEFT WRIST WITHOUT DIFFICULTY. SR'S ARE UP X2 IN BED. CALL LIGHT AND BEDSIDE TABLE ARE WITHIN EASY REACH.
--- NOTE | 2019-03-18 22:16 | NUR ---
PT TO BED AT THIS TIME. CPAP APPLIED.
--- NOTE | 2019-03-19 00:27 | NUR ---
RESTING IN BED WITH RESPIRATIONS UNLABORED. NO DISTRESS NOTED. CALL LIGHT IN REACH. FAMILY IN ROOM.
--- NOTE | 2019-03-19 04:05 | NUR ---
RESTING IN BED WITH EYES CLOSED.
[2019-03-19 08:00] VITALS: BP 133/61
--- NOTE | 2019-03-19 08:00 | NUR ---
SHIFT ASSMT COMPLETED.
--- NOTE | 2019-03-19 19:46 | NUR ---
PT IS RESTING QUIETLY IN BED WITH EYES OPEN. ALERT AND ORIENTED X 3. DENIES ANY DISCOMFORT AT THIS TIME. O2 IS ON @ 2LPM PER NC. NO SOB NOTED. LUNG SOUNDS ARE CLEAR, BUT SLIGHTLY DIMINISHED. LEFT WRIST SALINE LOCK IS INTACT. SR'S ARE UP X 2 IN BED. CALL LIGHT AND BEDSIDE TABLE ARE WITHIN EASY REACH. PT STATES HIS HAD TO GO TO [facility] FOR A COUPLE HOURS , BUT WOULD BE BACK TONIGHT.
[2019-03-19 20:00] VITALS: BP 132/57
--- NOTE | 2019-03-19 23:11 | NUR ---
RESTING QUIETLY IN BED WITH EYES CLOSED.
--- NOTE | 2019-03-20 02:45 | NUR ---
CONTINUES RESTING IN BED WITH NO DISTRESS NOTED. FAMILY IN ROOM. CALL LIGHT IN REACH.
[2019-03-20 07:04] LABS: BASOPHILS 0.3 % (0-2); EOSINOPHILS 4.8 % (0-7); HEMOGLOBIN 12.2 g/dL (13.5-17.5); IMMATURE GRANULOCYTES 0.4 % (0-5); LYMPHOCYTES 20.1 % (15-50); MCH 29.8 pg (26.0-34.0); MCV 90.2 fL (80.0-100.0); MEAN PLATELET VOLUME 9.3 fL (7.4-10.4); MONOCYTES 9.3 % (2-11); NEUTROPHILS 65.1 % (40-80); PLATELET COUNT 201 10x3/uL (130-400); RDW 15.9 % (11.5-14.5); WBC 10.2 10x3/uL (4.8-10.8)
[2019-03-20 07:05] LABS: ANION GAP 10.1 mmol/L (8-16); CALCIUM 8.4 mg/dL (8.5-10.1); CARBON DIOXIDE 29.4 mmol/L (21.0-32.0); CREATININE - SERUM 1.2 mg/dL (0.6-1.3); POTASSIUM - SERUM 4.5 mmol/L (3.5-5.1); VANCOMYCIN - RANDOM 17.2 ug/mL (10.0-20.0)
[2019-03-20 07:55] VITALS: BP 125/38
--- NOTE | 2019-03-20 08:08 | NUR ---
LAYING IN BED WITH EYES CLOSED. NO S/S DISTRESS. SIDE RAILS UP X2. CALL LIGHT IN HAND. IN ROOM
--- NOTE | 2019-03-20 11:40 | NUR ---
PATIENT ADMITTED TO REHAB FROM ACUTE FLOOR.DR. RICHARD IS HIS PCP.. DME AT HOME IS A C-PAP AND O2 CONCENTRATOR. AT DISCHARGE PATIENT WILL NEED O2, ( PROVIDER IS [facility]) WILL CONTINUE TO FOLLOW WITH PATIENT.
--- NOTE | 2019-03-20 12:46 | NUR ---
SITTING UP IN ROOM FINISHING LUNCH. FEEDS SELF. DENIES NEEDS
[2019-03-20 19:00] VITALS: BP 117/52
--- NOTE | 2019-03-20 19:51 | NUR ---
PT IS RESTING IN BED WITH EYES OPEN. ALERT AND ORIENTED X 3. DENIES ACUTE PAIN OR DISCOMFORT AT THIS TIME. PT STATES: "IM READY TO GO HOME, BUT IM STAYING UNTIL THEY TELL ME IM READY THIS TIME." O2 IS ON @ 2LPM PER NC. NO SOB NOTED. SR'S ARE UP X 2 IN BED. CALL LIGHT AND BEDSIDE TABLE ARE WITHIN EASY REACH.
--- NOTE | 2019-03-20 22:19 | NUR ---
PT IS RESTING QUIETLY IN BED WITH EYES CLOSED. RESPS ARE EVEN AND UNLABORED. NO ACUTE DISTRESS NOTED.
--- NOTE | 2019-03-21 01:38 | NUR ---
RESTING IN BED WITH EYES CLOSED.
--- NOTE | 2019-03-21 04:22 | NUR ---
PT IN BED LOW POSITION, EYES CLOSED, AROUSES EASILY TO VOICE, NO NEEDS NOTED, FLUIDS AND CALL LIGHT WITHIN REACH
--- NOTE | 2019-03-21 07:41 | NUR ---
RESTING QUIETLY IN BED. EYES CLOSED. SLEEPING IN ROOM. HEAD OF BED ELEVATED APPX 45 DEGREES. SIDE RAILS UP X2.
[2019-03-21 08:01] VITALS: BP 124/51
--- NOTE | 2019-03-21 11:48 | NUR ---
SITTING UP IN WC FOR LUNCH IN ROOM. OXYGEN 2L NC IN PLACE. DENIES NEEDS.
--- NOTE | 2019-03-21 12:42 | NUR ---
Nutrition Follow Up: Nursing in pt's room at the time of RD visit. Interview deferred at this time. Diet: AHA PO Intake: 77% meal avg BM: 03/18/19 Meds noted including Lasix Labs reviewed Rec continue current diet. RD following.
--- NOTE | 2019-03-21 16:44 | NUR ---
RESTING IN BED, SIDERAILS UP X2, OXYGEN IN PLACE. BED IN LOWEST POSITION. STILL RECEIVING IV ABX. CALL LIGHT IN REACH
[2019-03-21 19:00] VITALS: BP 129/60
--- NOTE | 2019-03-21 19:30 | NUR ---
ASSESSMENT PER FLOW SHEET, VS OBTAINED, SALINE LOCK IN LEFT WRIST INTACT. PT REPORTS BM YESTERDAY, USING URINAL WHEN VOIDING, PT REQUESTED AND SERVED FRESH H20, DENIES FURTHER NEEDS OR PAIN, BED IN LOW POSITION, SIDE RAILS X 2, CALL LIGHT IN REACH,, PT'S DAUGHTER AT BEDSIDE
--- NOTE | 2019-03-21 21:11 | NUR ---
ADM 2100 MEDS PER MD ORDERS, SEE EMAR, PT DENIES FURTHER NEEDS OR PAIN, BED IN LOW POSITION, SIDE RAILS X 2, CALL LIGHT IN REACH, DAUGHTER AT BEDSIDE
--- NOTE | 2019-03-21 22:43 | NUR ---
PT IN BED LOW POSITION, EYES CLOSED, AROUSES EASILY TO VOICE, NO NEEDS NOTED, FLUIDS AND CALL LIGHT WITHIN REACH
--- NOTE | 2019-03-22 00:33 | NUR ---
PT RESTING WITH EYES CLOSED, RESP QUIET, NO DISTRESS NOTED, LEFT UNDISTURBED AT THIS TIME, BED IN LOW POSITION, SIDE RAILS X 2, CALL LIGHT IN REACH, PT'S DAUGHTER AT BEDSIDE
--- NOTE | 2019-03-22 02:10 | NUR ---
PT AWAKE, WEARING C-PAP, DENIES NEEDS OR PAIN AT THIS TIME, DAUGHTER AT BEDSIDE
--- NOTE | 2019-03-22 05:37 | NUR ---
PT AWAKE, ADM 0600 MED PO PER MD ORDERS, SALINE LOCK NOT PATENT, REDDENED AROUND AREA AND PT COMPLAINS THAT IT HURTS, SALINE LOCK REMOVED, TIP INTACT, PRESSURE HELD, BANDAID APPLIED, PT REQUESTS NO IV IF POSSIBLE, REQUESTS PO ANTIOBIOTIC, INFORMED PT THAT I WILL WRITE A NOTE TO DR ENGLISH AND LET HIM KNOW, PT AND DAUGHTER VERBALIZES UNDERSTANDING, DENIES FURTHER NEEDS OR PAIN AT THIS TIME
[2019-03-22 07:35] LABS: CALCIUM 8.5 mg/dL (8.5-10.1); CARBON DIOXIDE 27.2 mmol/L (21.0-32.0); CREATININE - SERUM 1.1 mg/dL (0.6-1.3); POTASSIUM - SERUM 4.2 mmol/L (3.5-5.1)
[2019-03-22 07:36] LABS: BASOPHILS 0.6 % (0-2); EOSINOPHILS 5.7 % (0-7); HEMATOCRIT 36.2 % (42.0-54.0); IMMATURE GRANULOCYTES 0.3 % (0-5); LYMPHOCYTES 26.9 % (15-50); MCH 29.9 pg (26.0-34.0); MCHC 33.1 g/dL (31.0-37.0); MCV 90.3 fL (80.0-100.0); MEAN PLATELET VOLUME 9.2 fL (7.4-10.4); MONOCYTES 8.5 % (2-11); PLATELET COUNT 191 10x3/uL (130-400); RBC 4.01 10x6/uL (4.20-6.10); RDW 15.9 % (11.5-14.5); WBC 9.9 10x3/uL (4.8-10.8)
[2019-03-22 08:00] VITALS: BP 121/56
--- NOTE | 2019-03-22 08:00 | NUR ---
SHIFT ASSMT COMPLETED.
[2019-03-22 19:00] VITALS: BP 128/57
--- NOTE | 2019-03-22 19:08 | NUR ---
PATIENT IS RESTING IN HIS BED. HE DENIES ANY NEEDS. BED IS DOWN LOW WITH SIDE RAILS UP X2. CALL LIGHT IS IN REACH.
--- NOTE | 2019-03-23 00:07 | NUR ---
PATIENT IS SLEEPING. BED IS DOWN LOW WITH SIDE RAILS UP X2. PATIENT'S DAUGHTER IS AT BEDSIDE. CALL LIGHT IS IN REACH.
--- NOTE | 2019-03-23 08:00 | NUR ---
SHIFT ASSMT COMPLETED.REMAINS OFF O2 AT PRESENT.SATS THIS AM 93%.DENIES SOB.LUNGFIELDS APPEAR CLEAR/AUSCUTATION.
[2019-03-23 08:12] VITALS: BP 135/61
--- NOTE | 2019-03-23 12:00 | NUR ---
EATING LUNCH.DENIES NEEDS.
--- NOTE | 2019-03-23 16:00 | NUR ---
RESTING QUIETLY.CL IN REACH. AT BEDSIDE.
[2019-03-23 16:51] VITALS: BP 123/53
--- NOTE | 2019-03-23 19:11 | NUR ---
PATIENT IS RESTING IN HIS BED. HE DENIES ANY NEEDS. BED IS DOWN LOW WITH SIDE RAILS UP X2. CALL LIGHT IS IN REACH.
[2019-03-23 19:25] VITALS: BP 131/57
--- NOTE | 2019-03-24 00:06 | NUR ---
PATIENT IS SLEEPING. BED IS DOWN LOW WITH SIDE RAILS UP X2. CALL LIGHT IS IN REACH. PATIENT'S SPOUSE IS SLEEPING AT HIS SIDE.
--- NOTE | 2019-03-24 04:07 | NUR ---
PATIENT IS RESTING IN BED. AROUSES EASILY. BED IS DOWN LOW WITH SIDE RAILS UP X2. CALL LIGHT IN REACH. SPOUSE AT BEDSIDE.
[2019-03-24 07:10] LABS: ANION GAP 12.2 mmol/L (8-16); CALCIUM 8.2 mg/dL (8.5-10.1); CARBON DIOXIDE 27.8 mmol/L (21.0-32.0); CREATININE - SERUM 1.3 mg/dL (0.6-1.3)
[2019-03-24 07:19] LABS: BASOPHILS 0.5 % (0-2); EOSINOPHILS 4.5 % (0-7); HEMATOCRIT 33.9 % (42.0-54.0); HEMOGLOBIN 11.3 g/dL (13.5-17.5); IMMATURE GRANULOCYTES 0.1 % (0-5); LYMPHOCYTES 31.7 % (15-50); MCH 30.1 pg (26.0-34.0); MCHC 33.3 g/dL (31.0-37.0); MCV 90.2 fL (80.0-100.0); MEAN PLATELET VOLUME 9.1 fL (7.4-10.4); NEUTROPHILS 56.2 % (40-80); PLATELET COUNT 172 10x3/uL (130-400); RBC 3.76 10x6/uL (4.20-6.10); WBC 8.6 10x3/uL (4.8-10.8)
[2019-03-24 07:29] VITALS: BP 136/49
--- NOTE | 2019-03-24 08:09 | NUR ---
SITTING UP IN BED FOR BREAKFAST. DENIES INCREASED SOB. IN ROOM WITH PT.
--- NOTE | 2019-03-24 12:49 | NUR ---
SITTING UP IN WC IN ROOM FOR LUNCH. FEEDS SELF EASILY. C/O BEING WEAK AND NOT HAVING MUCH ENERGY. DENIES PAIN. CALL LIGHT IN REACH.
--- NOTE | 2019-03-24 14:54 | NUR ---
RESTING QUIETLY IN BED. EYES CLOSED. NO S/S DISTRESS. CALL LIGHT IN REACH
--- NOTE | 2019-03-24 17:52 | NUR ---
SITTING UP IN WC EATING SUPPER AND TALKING WITH VISITORS. IN ROOM WITH PT.
--- NOTE | 2019-03-24 21:33 | NUR ---
Patient is alert and oriented, at bedside, no needs or wants voiced, medication administered as ordered, will continue to monitor, continue plan of care.
[2019-03-24 22:05] VITALS: BP 148/61
--- NOTE | 2019-03-24 23:06 | NUR ---
Patient requested having his O2 checked, ched and it was 94 %, administered o2 via nasal canula at 2 liters, will continue to monitor.
--- NOTE | 2019-03-25 01:06 | NUR ---
Patient quiet and resting , patient wanted blinds closed because of the helicoter landing light coming thru the window, patient stated he has not slept yet this evening.
[2019-03-25 07:49] VITALS: BP 128/56
--- NOTE | 2019-03-25 17:26 | NUR ---
SITTING UP IN BED FOR SUPPER. FAMILY VISITING IN ROOM. CALL LIGHT IN REACH
--- NOTE | 2019-03-25 19:13 | NUR ---
FRANCISCO IS RESTING IN HIS BED. HE HAS A VISITOR AT BEDSIDE. BED IS DOWN LOW WITH SIDE RAILS UP X2. CALL LIGHT IN REACH.
[2019-03-25 19:40] VITALS: BP 135/52
--- NOTE | 2019-03-26 | NUR ---
PATIENT IS SLEEPING. NO SIGNS OF DISTRESS. BED IS DOWN LOW WITH SIDE RAILS UP X2. CALL LIGHT IS IN REACH.
[2019-03-26 07:28] VITALS: BP 139/56
--- NOTE | 2019-03-26 08:07 | NUR ---
SITTING UP IN BED FOR BREAKFAST. FAMILY IN ROOM WITH PT. HE DENIES NEEDS.
--- NOTE | 2019-03-26 09:34 | NUR ---
PT INCONT OF URINE IN BED. WHOLE BED HAD TO BE STRIPPED. PT TO WC. PT DENIED BEING INCONT.
--- NOTE | 2019-03-26 11:32 | NUR ---
PT WAS SPEAKING TO ON PHONE AND STATED "DID YOU LEAVE THE XANAX HERE FOR ME ?".....(HIS STAYS WITH HIM OFTEN). WHEN QUESTIONED ABOUT THIS BY THIS NURSE HE STATED "I ONLY TAKE WHAT IS PRESCRIBED BY A DOCTOR". WHEN ASK IF XANAX WAS PRESCRIBED TO HIM HE SAID "I REFUSE TO ANSWER BECAUSE I DONT WANT TO LIE". NURSE ENCOURAGED PT TO NOT TAKE ANY MEDS THAT WERE NOT PRESCRIBED FOR HIM AND HOW BENZO'S CAN INCREASE RISK OF FALLING. HE WENT ON TO TELL THIS NURSE HOW CAREFUL HE IS WHEN HE TAKES XANAX AND HOW IT HELPS HIM SLEEP....NURSE AGAIN ENCOURAGED HIM NOT TO TAKE ANY MEDS ON REHAB THAT WAS NOT PRESCRIBED FOR HIM BY DR ENGLISH. PT REFUSED TO ACKNOWLEDGE COMMENT.
--- NOTE | 2019-03-26 12:45 | NUR ---
SITTING UP IN BED EATING LUNCH. USED URINAL IN BED. DENIES PAIN OR SOB. SIDE RAILS UP X2. CALL LIGHT IN REACH
--- NOTE | 2019-03-26 18:55 | NUR ---
THE PATIENT APPEARED TO BE SLEEPING BUT EASILY AWOKE WHEN STAFF ENTERED HIS ROOM. BED IS IN THE LOW POSITION WITH SIDERAILS X2 AND CALL LIGHT WITHIN REACH. FAMILY PRESENT IN THE ROOM.PATIENT AND FAMILY EDUCATED ON AND DEMONSTRATE USE OF A CALL LIGHT. THE PATIENT APPEARS COMFORTABLE AND HAS NO QUESTIONS OR CONCERNS AT THIS TIME.
[2019-03-26 20:04] VITALS: BP 172/55
--- NOTE | 2019-03-27 02:44 | NUR ---
THE PATIENT IS AWAKE AND TALKING TO STAFF. HE HAS NO QUESTIONS OR CONCRNS AT THIS TIME.
[2019-03-27 06:29] LABS: BASOPHILS 0.5 % (0-2); EOSINOPHILS 2.8 % (0-7); HEMATOCRIT 35.5 % (42.0-54.0); HEMOGLOBIN 11.9 g/dL (13.5-17.5); IMMATURE GRANULOCYTES 0.1 % (0-5); LYMPHOCYTES 31.8 % (15-50); MCH 29.9 pg (26.0-34.0); MCHC 33.5 g/dL (31.0-37.0); MCV 89.2 fL (80.0-100.0); MEAN PLATELET VOLUME 9.1 fL (7.4-10.4); NEUTROPHILS 56.8 % (40-80); PLATELET COUNT 174 10x3/uL (130-400); RBC 3.98 10x6/uL (4.20-6.10); RDW 15.4 % (11.5-14.5); WBC 7.8 10x3/uL (4.8-10.8)
[2019-03-27 06:40] LABS: ANION GAP 11.4 mmol/L (8-16); CALCIUM 8.3 mg/dL (8.5-10.1); CARBON DIOXIDE 27.7 mmol/L (21.0-32.0); CREATININE - SERUM 1.2 mg/dL (0.6-1.3); POTASSIUM - SERUM 4.1 mmol/L (3.5-5.1)
[2019-03-27 07:15] VITALS: BP 112/42
[2019-03-27 19:40] VITALS: BP 125/53
--- NOTE | 2019-03-27 19:40 | NUR ---
ASSESSMENT PER FLOW SHEET, VS OBTAINED, PT REPORTS FLATUS, BM YESTERDAY, AND USING URINAL WHEN VOIDING, PT DENIES PAIN, REQUESTED AND SERVED FRESH H20, FRESH H20 SERVED TO PT'S ALSO, PT DENIES FURTHER NEEDS OR PAIN, BED IN LOW POSITION, SIDE RAILS X 2, CALL LIGHT IN REACH
--- NOTE | 2019-03-27 20:30 | NUR ---
PT AWAKE, VISITING WITH , DENIES NEEDS OR PAIN AT THIS TIME
--- NOTE | 2019-03-27 21:47 | NUR ---
PT AWAKE, ADM 2100 MEDS PER MD ORDERS, SEE EMAR, PT GAURANG MEDS WELL, ASSISTED BY WITH CPAP, PT DENIES FURTHER NEEDS OR PAIN, PT'S AT BEDSIDE
--- NOTE | 2019-03-27 22:29 | NUR ---
PT AROUSES TO OPENING OF DOOR, INFORMED PT THAT I WAS JUST CHECKING ON HIM, PT STATES "I'M DOING GOOD", DENIES NEEDS OR PAIN, PT'S IN OTHER BED
--- NOTE | 2019-03-28 00:38 | NUR ---
PT AROUSES TO OPENING OF DOOR, DENIES NEEDS OR PAIN, IN OTHER BED AT THIS TIME
--- NOTE | 2019-03-28 02:31 | NUR ---
PT RESTING WITH EYES CLOSED, RESP QUIET, NO DISTRESS NOTED, LEFT UNDISTURBED AT THIS TIME, BED IN LOW POSITION, SIDE RAILS X 2, CALL LIGHT IN REACH
--- NOTE | 2019-03-28 05:21 | NUR ---
PT GERIATRICS PHYSICIAN LIGHT, THIS RN AND YONATHAN SAINI, RN TO ROOM, YONATHAN SAINI RN EMPTIED 400 MLS OF DARK YELLOW URINE FROM URINAL, THIS RN ADM 0600 MED PER MD ORDERS, SEE EMAR, PT DENIES FURTHER NEEDS, IN OTHER BED
--- NOTE | 2019-03-28 07:33 | NUR ---
NO CHANGE IN ASSESSMENT. RESP EVEN AND UNLABORED. CL IN REACH. IN ROOM.
[2019-03-28] MEDS ORDERED: Augmentin 500-125 TA PO (07:57)
--- NOTE | 2019-03-28 07:58 | RHP ---
PATIENT: LUZ JIMENEZ MEDICAL RECORD: [id number] ACCOUNT: [id number] LOCATION:[facility]1118 : 30 ADMISSION DATE: 03/15/19 REHABILITATION HISTORY AND PHYSICAL EXAMINATION POST ADMISSION PHYSICIAN EXAMINATION POST ADMISSION PHYSICAL EXAMINATION AND HISTORY AND PHYSICAL DATE OF ADMISSION: 03/15/2019 ADMITTING DIAGNOSIS: Disuse myopathy. 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 The patient apparently failed discharge. The patient reported to the Emergency Room on March 11 one day after being released from the facility for pneumonia in the right lung. He has been in a couple days in rehabilitation prior to his discharge. Shortly after arriving home, he became worse on the short of breath, continued to worsen and family brought him back to the ER. Reports cough, which is nonproductive, dyspnea on exertion, shortness of breath, wheezing, nausea, vomiting, fever and chills. Chest x-ray showed worsening infiltrate in his right lower lobe, which was consistent with pneumonia. It was slightly less pronounced than previously seen, but he has small bilateral pleural effusions. He was independent with ADLs and mobility, wearing O2 at night and p.r.n. Currently, he is mod-to-max assist for ADLs and mobility. He is very motivated to regain his strength and hopefully return back home. Comorbidities in this patient include pneumonitis, chronic kidney disease, COPD, systolic CHF, obstructive sleep apnea, multiple myeloma, dyspnea, bilateral pleural effusions, uqmak-ei-shukqfs hypoxic respiratory failure, kidney injury, and pacemaker. PAST MEDICAL HISTORY: Significant for hypertension, CHF, pneumonia, constipation, prostate problems. PAST SURGICAL HISTORY: Includes cataracts, coronary artery bypass grafting, pacemaker placement, bilateral knee replacements, and a right carotid endarterectomy. ALLERGIES: No drug allergies. CURRENT MEDICATIONS: Include vancomycin 1gram every 12 hours and Merrem 1 gram every 12 hours, Protonix 40 mg daily, Lovenox 30 mg subcutaneous daily, Cozaar 100 mg daily, Xopenex 1.25 mg every 6 hours p.r.n., diltiazem 180 mg daily, carvedilol 25 mg b.i.d. with meals, amiodarone 200 mg daily, Calmoseptine to apply topically b.i.d., sotalol 80 mg b.i.d., Zocor 40 mg at bedtime, DuoNeb updrafts, Mucinex 1200 mg b.i.d., Lasix 20 mg b.i.d., Colace 100 mg b.i.d., digoxin 0.125 mg at bedtime, aspirin chewable 81 mg daily, Tessalon Perles 100 mg t.i.d., and Xanax 0.125 mg t.i.d. p.r.n. HABITS: No alcohol or tobacco use. FAMILY HISTORY: Noncontributory. SOCIAL HISTORY: The patient hopes to return home better than before. HISTORY AND PHYSICAL [id number] LUZ JIMENEZ REVIEW OF SYSTEMS: GENERAL: Does complain of weakness and fatigue. HEENT: Denies cold, cough, or congestion. CARDIOVASCULAR: Denies chest pain. PHYSICAL EXAMINATION: VITAL SIGNS: Stable, afebrile. GENERAL: Elderly gentleman, in no acute distress upon exam. HEENT: Normocephalic and atraumatic. Mucosa moist. NECK: Supple. No lymphadenopathy. LUNGS: Clear at this time in upper soliz, decreased breath sounds at the bases. CARDIOVASCULAR: Regular rate and rhythm. ABDOMEN: Benign. EXTREMITIES: No clubbing, cyanosis or edema. NEUROLOGIC: He will answer questions, but does have some mild confusion. LABORATORY DATA: His white count is 11.6, H&H of 13 and 40, and platelet count was noted to be 177. Sodium is 142, potassium 4.4, BUN and creatinine of 27 and 1.1, and blood sugar is noted to be 93. 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 The patient has potential to improvement. We will institute the following multidisciplinary therapies including, but not limited to, physical, occupational, respiratory, speech, nutritional services, prosthetics, and orthotics. Given his complex medical condition and risks for more complications, rehabilitation services cannot be provided at a lower level of care such as a skilled nurse facility. PLAN: 1. Admit to [facility] for an inpatient therapy to include the following disciplines; A. Physical therapy to improve gait, all transfer skills, and bed mobility to modified independent level. B. Nutrition to assist with nutritional needs. C. Rehabilitation nursing to assist in monitoring the patient's underlying medical conditions and to assist with any type of bowel or bladder management. 2. The patient's current medications and medical care will be continued. 3. The patient will be placed on standard fall precautions. 4. The patient's estimated length of stay is approximately 7-10 days. 5. We will discuss the patient during care team staff meeting this week. TRANSINT:[id number] Voice Confirmation ID: [id number] DOCUMENT ID: [id number] CHANA notes whether there has been none or any medical/functional change since admission: - No change since prescreen. CHANA attests patient continues to be appropriate for IRF: - Continues to be appropriate. HISTORY AND PHYSICAL [id number] LUZ JIMENEZ,LIAT ODONNELL MD at 0758 CC: [id number] DICTATION DATE: 03/16/19 0857 EXPLOSIVES TRUCK DRIVER: 03/16/19 1139 ADM IN [place] [id number] [place] [id number]
--- NOTE | 2019-03-28 08:22 | NUR ---
PT RESTING IN BED EATING BREAKFAST AT BEDSIDE JAIME WELL CALL LIGHT IN REACH WILL MONITER
--- NOTE | 2019-03-28 09:31 | NUR ---
BARB DISCHARGING HOME TODAY WITH FAMILY. [facility] WILL FOLLOW WITH PATIENT AND PROVIDE THERAPY. NO NEW DME NEEDED AT THIS TIME. DR. RICHARD 03/31/19 @ 2:00. PATIENT CHOICE FORM AND IMFM FORMS SIGNED, COPY GIVEN TO PATIENT AND FILED IN CHART. DISCHARGE INSTRUCTIONS WITH FIM DATA FAXED TO PCP , HOME HEALTH AND REVIEWED WITH PATIENT.
[2019-03-28] MEDS ORDERED: MEGACE 20 MG TA20 MG PO (13:06)
--- NOTE | 2019-03-28 14:00 | NUR ---
PT DISCHARGED TO HOME VIA WHEELCHAIR WITH DISCHARGE SUMMARY AND MEDS REVIEWED WITH PT PT VOICED THAT HE DONT KNOW IF HE WANTED TO TAKE ALL THOSE PILLS BECAUSE IT WAS A HASSLE STATED SHE WOULD HELP AND MAKE A PILL BOX PTS MEDS CALLED TO [facility] CALLED TO [place] ON [address]
== END 2019-03-28 14:00 | disposition home health service (06) | DRG 91 ==
LOC: D.REHAB 19:46
PROVIDERS: ADMIT Emergency Medicine; ATTEND Emergency Medicine
DX: G72.89 Other specified myopathies (principal); J18.9 Pneumonia, unspecified organism; J96.21 Acute and chronic respiratory failure with hypoxia; I13.0 Hypertensive heart and chronic kidney disease with heart failure and stage 1 through stage 4 chronic kidney disease, or unspecified chronic kidney disease; I50.20 Unspecified systolic (congestive) heart failure; C90.00 Multiple myeloma not having achieved remission; J90 Pleural effusion, not elsewhere classified; N18.9 Chronic kidney disease, unspecified; J44.9 Chronic obstructive pulmonary disease, unspecified; G47.33 Obstructive sleep apnea (adult) (pediatric); R06.00 Dyspnea, unspecified; Z95.0 Presence of cardiac pacemaker; I25.10 Atherosclerotic heart disease of native coronary artery without angina pectoris; Z95.1 Presence of aortocoronary bypass graft; E78.5 Hyperlipidemia, unspecified; I48.0 Paroxysmal atrial fibrillation; E11.9 Type 2 diabetes mellitus without complications

== ENCOUNTER 2019-04-09 12:04 | Inpatient (IN) | payer MEDICARE, BC ==
[~2019-04-09] VITALS: Ht 172.7 cm; Wt 83.1 kg
[2019-04-09] VITALS (7 sets, daily range): BP systolic 103–130; BP diastolic 55–74; BMI 24.3
--- NOTE | ~2019-04-09 | HEMODYNAMI ---
PATIENT:LUZ JIMENEZ MEDICAL RECORD: [id number] : [birth year] LOCATION:[place] [address] ADMISSION DATE: 04/09/19 Generatedon:04/10/201912:30 Patient name: LUZ JIMENEZ Patient #: [id number] : 1930 Date of study: 04/10/2019 Page: Of Hemodynamic Procedure Report Patient Data Patient Demographics Procedure consent was obtained First Name: LUZ Gender: Male Last Name: TONY : 1930 [facility] Initial: C Age: 88 year(s) Patient #: [id number] Race: SSN: [id number] Additional ID: [id number] Contact details [address]: [address] [place] [address] circle State: [place] City: [place] Zip code: [address] Past Medical History Allergies: No known allergies Admission Admission Data Admission Date: 04/09/2019 Admission Time: 13:50 Room #: [facility] Procedure Procedure Types Cath Procedure Diagnostic Procedure LHC LHC w/Coronaries w/Grafts Sedation Charges Moderate Sedation up to 15 minutes Procedure Description Procedure Date Procedure Date: 04/10/2019 Procedure Start Time: 12:10 Procedure End Time: 12:29 Procedure Staff Name Function Deion Morin MD Performing Physician Disha Blankenship RT Monitor Ashleigh Hyde RT Scrub Marly Gillespie RN Nurse Tyler Soto RT Secret Service Agent Procedure Data Cath Procedure Fluoroscopy Diagnostic fluoroscopy Total fluoroscopy Time: 4 time: 4 min min Diagnostic fluoroscopy Total fluoroscopy dose: 829 dose: 829 mGy mGy Contrast Material Contrast Material Type Amount (ml) Isovue 300 83 Entry Location Entry Primary Successful Side Size Upsize Upsize Entry Closure Succes sful Closure Location (Fr) 1 (Fr) 2 (Fr) Remarks Device Remarks Femoral Right 5 Fr Exoseal artery Estimated blood loss: 5 ml Diagnostic catheters Device Type Used For End Catheter Placement MULTIPACK JL 4.0 5Fr Procedure catheter DIAGNOSTIC AR MOD 5Fr Procedure Catheter ([id number]) DIAGNOSTIC IM 5Fr Procedure catheter ([id number]) MULTIPACK Pigtail 5 Fr Procedure catheter Procedure Complications No complications Procedure Medications Medication Administration Route Dosage 0.9% NaCl I.V. 100 ml/hr Oxygen etCO2 Nasal cannula 2 l/min Lidocaine 2% added to field 20 Heparin Flush Bag added to field 2 bags (1000units/500ml NS) Versed I.V. 2 mg Fentanyl I.V. 50 mcg Versed I.V. 1 mg Hemodynamics Rest Heart Rate: 119 (bpm) Pressure Samples Time Site Value (mmHg) Purpose Heart Use Rate(bpm) 12:22 LV 93/1,6 Snapshot 60 12:23 AO 92/37(56) Pullback 60 12:23 LV 92/-5,19 Pullback 60 Gradients Valve Time Site 1 Site 2 Mean SEP/DFP Peak To Heart Use (mmHg) (sec/min) Peak Rate (mmHg) (bpm) Aortic 12:23 LV AO 8 7 0 60 92/-5,19 92/37(56) Calculations Valve P-P Mean Valve Index Valve Source Name Gradient Area Flow (cm2) Aortic 0 8 0 8 Snapshots Pre Cath Intra NCS Post Cath Vital Signs Time Heart Resp SPO2 etCO2 NIBP (mmHg) Rhythm Pain Sedation Rate (ipm) (%) (mmHg) Status Level (bpm) 12:00:41 118 16 97 23.9 115/85(104) Paced 0 (11) 10(A) , No pain 12:04:46 117 16 97 22.4 119/87(106) Paced 0 (11) 10(A) , No pain 12:08:46 129 19 98 24 103/78(87) Paced 0 (11) 10(A) , No pain 12:12:52 119 16 96 26 91/66(75) Paced 0 (11) 10(A) , No pain 12:16:58 60 21 98 30.6 106/61(87) Paced 0 (11) 9(A) , No pain 12:21:12 60 17 98 29.7 101/51(78) Paced 0 (11) 9(A) , No pain 12:25:23 60 16 98 30.6 107/52(85) Paced 0 (11) 10(A) , No pain 12:29:37 60 16 93 0 103/54(80) Paced 0 (11) 10(A) , No pain Medications Time Medication Route Dose Verified Delivered Reason Notes Eff ectiveness by by 11:59:44 0.9% NaCl I.V. 100 Deion Marly used for ml/hr Mikel Gillespie medication coordinator 11:59:49 Oxygen etCO2 2 Deion Marly used for Nasal l/min Mikel Gillespie procedure cannula RN 11:59:54 Lidocaine 2% added 20ml Deion Deion for local to vial Mikel Morin MD anesthetic field 11:59:59 Heparin Flush added 2 Deion Deion used for Bag to bags Mikel Morin MD procedure (1000units/500ml field NS) 12:09:24 Versed I.V. 2 mg Deion Marly for Mikel Gillespie sedation RN 12:09:36 Fentanyl I.V. 50 Deion Marly for mcg Mikel Gillespie sedation RN 12:15:20 Versed I.V. 1 mg Deion Marly for Mikel Gillespie sedation prototype sewer Log Time Note 11:38:06 Signed procedure consent form obtained from patient. 11:38:08 Diagnostic Cath status Urgent 11:38:10 Tyler Taylorit RT(R) sent for patient. Start room use. 11:38:11 Time tracking: Regular hours (M-F 7:00 - 5:00) 11:38:15 Plan of Care:Hemodynamics will remain stable., Cardiac rhythm will remain stable., Comfort level will be maintained., Respiratory function will remain adequate., Patient/ family verbilizes understanding of procedure., Procedure tolerated without complication., Recovers from procedure without complications.. 11:50:00 Patient received from Med II to CCL 1 Alert and oriented. Tansferred to table in Supine position. 11:50:02 Warm blankets applied, and boby hugger turned on for patient comfort. 11:50:02 Correct patient and procedure confirmed by team. 11:50:03 ECG and BP/O2 sat monitors applied to patient. 11:59:35 Vital chart was started 11:59:44 0.9% NaCl 100 ml/hr I.V. was administered by Marly Gillespie RN; used for procedure; 11:59:49 Oxygen 2 l/min etCO2 Nasal cannula was administered by Marly Gillespie RN; used for procedure; 11:59:54 Lidocaine 2% 20ml vial added to field was administered by Deion Morin MD; for local anesthetic; 11:59:59 Heparin Flush Bag (1000units/500ml NS) 2 bags added to field was administered by Deion Morin MD; used for procedure; 12:04:10 Baseline sample Acquired. 12:04:48 Rhythm: paced, atrial fibrillation 12:04:49 Full Disclosure recording started 12:04:50 Pre-procedure instructions explained to patient. 12:04:50 Pre-op teaching completed and patient verbalized understanding. 12:04:54 Family in patients room. 12:04:55 Patient NPO since Midnight. 12:05:02 Patient allergic to No known allergies 12:05:09 Is patient on blood thinner?No 12:05:10 Patient diabetic? No. 12:05:13 Previous problem with sedation/anesthesia? No ? 12:05:15 Snore? Yes 12:05:16 Sleep apnea? Yes 12:05:17 Deviated septum? No 12:05:18 Opens mouth fully? Yes 12:05:18 Sticks out tongue? Yes 12:05:20 Airway obstruction? No ? 12:05:21 Dentures? No ? 12:05:24 Pre procedure: right dorsailis pedis pulse Doppler 12:05:27 Patient pain scale 0/10 ?. 12:05:36 IV patent on arrival in right wrist with 0.9% NaCl at [facility]. 12:05:38 Lab results completed and on chart. 12:05:41 Right groin area was prepped with chlora-prep and draped in sterile fashion 12:05:42 Alarms reviewed by R. N. 12:05:42 Sharps counted by scrub and verified by R.N. 12:08:31 --------ALL STOP TIME OUT------ 12:08:31 Final Timeout: patient, procedure, and site verified with staff and physician. All members of the team are in agreement. 12:08:32 Right groin site verified by team. 12:08:34 Maximum allowable Isovue 300 dose 300ml. Physician notified. (300ml for normal creatinines. For patients with creatinine of 1.7 or higher multiply weight(kg) x 5 divided by creatinine.) 12:08:37 Fire Safety Assessment: A--An alcohol-based skin anteseptic being used preoperatively., C--Open oxygen or nitrous oxide is being used., D--An ESU, laser, or fiber-optic light is being used. 12:08:42 Physical assessment completed. ASA score P 2 - A patient with mild systemic disease as per Deion Morin MD. 12:08:44 Sedation plan: IV Moderate Sedation Medication:Versed, Fentanyl 12:09:24 Versed 2 mg I.V. was administered by Marly Gillespie RN; for sedation; 12::36 Fentanyl 50 mcg I.V. was administered by Marly Gillespie RN; for sedation; 12::36 Zero performed for pressure channel P1 12:10:15 Procedure started. 12:10:35 Local anesthetic to right femoral artery with Lidocaine 2% by Deion Morin MD.INITIAL ACCESS ONLY 12:10:47 Use device set Femoral Dx 12:10:48 ACIST Syringe (51719) opened to sterile field. 12:10:48 Bag Decanter (2002S) opened to sterile field. 12:10:50 ACIST Hand Control (49239) opened to sterile field. 12:10:50 ACIST Manifold (01931) opened to sterile field. 12:10:50 Tegaderm 4 x 4 (1626W) opened to sterile field. 12:10:51 Medline Cath Pack ([id number]) opened to sterile field. 12:10:52 DIAGNOSTIC WIRE .035 260cm J wire (741561) opened to sterile field. 12:10:53 DIAGNOSTIC Multipack 5Fr catheter set (PT9458) opened to sterile field. 12:10:54 SHEATH 5FR Driscoll (WBG880) opened to sterile field. 12:11:37 A 5 Fr sheath was inserted into the Right Femoral artery 12:11:58 A MULTIPACK JL 4.0 5Fr catheter was advanced over the wire and used for Procedure. 12:12:45 LCA angiography performed. 12:12:46 Catheter exchanged over wire. 12:13:38 A DIAGNOSTIC AR MOD 5Fr Catheter ([id number]) was advanced over the wire and used for Procedure. 12:14:36 RCA angiography performed. 12:15:15 SVG to RCA angiography performed. 12:15:20 Versed 1 mg I.V. was administered by Marly Gillespie RN; for sedation; 12:16:29 SVG to OM angiography performed. 12:17:12 SVG to Diag angiography performed. 12:17:55 Catheter exchanged over wire. 12:19:18 A DIAGNOSTIC IM 5Fr catheter (519205L) was advanced over the wire and used for Procedure. 12:19:30 XAVIER to LAD angiography performed. 12:20:13 Catheter exchanged over wire. 12:20:42 A MULTIPACK Pigtail 5 Fr catheter was advanced over the wire and used for Procedure. 12::53 LV gram done using BELTRÁN 12::59 Injector settings: Ml/sec: 10, Volume: 20, 12:22:33 LV hemodynamics recorded. 12:22:49 EF : 20 % 12:23:43 Catheter removed. 12:23:47 EXOSEAL 5Fr (EX500) opened to sterile field. 12:24:50 Sheath removed intact; hemostasis achieved with Exoseal to the Right Femoral artery. 12:25:00 Procedure ended.(Physican Out) 12:25:16 Fluoroscopy time 04.00 minutes. 12:25:20 Flurop Dose total: 829 12:25:20 Fluoroscopy dose: 829 mGy 12:27:23 Contrast amount:Isovue 300 83ml. 12:27:40 Sharps counted by scrub and verified by R.N. 12::55 Post-op/insertion site Right Femoral artery dressed using a 4 x 4 and Tegaderm. 12::59 Post-procedure physical assessment completed. ASA score P 2 - A patient with mild systemic disease as per Deion Morin MD. 12:28:06 Post procedure rhythm: sinus rhythm , paced 12::22 Estimated blood loss: 5 ml 12:28:24 Post procedure instruction explained to patient.Patient verbalizes understanding. 12:28:24 Patient needs reinforcement of post procedure teaching. 12:28:44 Procedure type changed to Cath procedure, Diagnostic procedure, LHC, LHC w/Coronaries w/Grafts, Sedation Charges, Moderate Sedation up to 15 minutes 12:29:00 Procedure and supply charges have been captured, reviewed, submitted and are correct. 12:29:04 Procedure Complication : No complications 12:29:06 Vital chart was stopped 12:29:07 See physician's report for complete and final results. 12::08 Report given to [facility]. 12:29:14 Patient transfered to [facility] with Bed. 12:29:16 Procedure ended. 12:29:16 Full Disclosure recording stopped 12:29:19 End room use (Document Last) Device Usage Item Name Manufacture Quantity Catalog Hospital Part Current Minimal L ot# / Number Charge Number Stock Stock Serial# Code ACIST Acist 1 80149 286132 315200 462597 20 Syringe Medical (57959) Systems Inc Bag Microtek 1 2001S 751023 25508 757466 5 Decanter Medical Inc. () ACIST Hand Acist 1 75120 274432 166851 081200 5 Control Medical (74386) Systems Inc ACIST Acist 1 62392 962189 545772 386023 5 Manifold Medical (46519) Systems Inc Tegaderm 4 3M 1 1626W 788623 255294 613295 5 x 4 (1626W) Medline Medline 1 SSRQ37524 450775 40816 858392 5 Cath Pack ([id number]) DIAGNOSTIC St Christiano 1 416875 331842 256622 680093 30 WIRE .035 260cm J wire (990208) DIAGNOSTIC Cardinal 1 QQ2521 383002 70761 972844 30 Multipack Health 5Fr catheter set (JF3420) SHEATH 5FR Terumo 1 QEG160 515046 530760 945163 5 Driscoll (GSP479) MULTIPACK Cardinal 1 113377 5 JL 4.0 5Fr Health catheter DIAGNOSTIC Cardinal 1 184934E 789510 604487 066911 15 AR MOD 5Fr Health Catheter (128887R) DIAGNOSTIC Cardinal 1 315152D 766136 492782 771374 5 IM 5Fr Health catheter (788317M) MULTIPACK Cardinal 1 515285 5 Pigtail 5 Health Fr catheter EXOSEAL 5Fr Cardinal 1 EX500 394613 481101 784602 10 (EX500) Health Signature Audit [place] Stage Time Signature Unsigned Intra-Procedure 04/10/2019 Disha Blankenship 12:30:35 PM RT(R) Signatures Monitor : Disha Blankenship Signature : RT Date : Time : [facility] [address] [place] [address]
[~2019-04-09 12:04] MED LIST changes: +Augmentin 500-125 TA PO; +MEGACE 20 MG TA20 MG PO
[2019-04-09 12:30] LABS: BASOPHILS 0.5 % (0-2); EOSINOPHILS 2.4 % (0-7); HEMOGLOBIN 13.2 g/dL (13.5-17.5); IMMATURE GRANULOCYTES 0.2 % (0-5); LYMPHOCYTES 32.5 % (15-50); MCH 30.1 pg (26.0-34.0); MCHC 33.8 g/dL (31.0-37.0); MEAN PLATELET VOLUME 8.8 fL (7.4-10.4); MONOCYTES 9.8 % (2-11); NEUTROPHILS 54.6 % (40-80); PLATELET COUNT 199 10x3/uL (130-400); RBC 4.38 10x6/uL (4.20-6.10); RDW 15.6 % (11.5-14.5); WBC 9.8 10x3/uL (4.8-10.8)
[2019-04-09 12:37] LABS: APTT 27.9 SECONDS (22.8-39.4); INR 1.06 (0.85-1.17); PROTIME 13.3 SECONDS (11.6-15.0)
[2019-04-09 12:44] LABS: ALBUMIN 3.2 g/dL (3.4-5.0); ALKALINE PHOSPHATASE 72 U/L (46-116); ALT (SGPT) 76 U/L (10-68); BILIRUBIN - TOTAL 0.43 mg/dL (0.2-1.3); CALC OSMOLALITY 283 mosm/kg (275-300); CALCIUM 8.6 mg/dL (8.5-10.1); CARBON DIOXIDE 23.3 mmol/L (21.0-32.0); CHLORIDE - SERUM 104 mmol/L (98-107); CREATININE - SERUM 1.3 mg/dL (0.6-1.3); GLUCOSE 108 mg/dL (74-106); POTASSIUM - SERUM 4.1 mmol/L (3.5-5.1); PROTEIN - SERUM 7.2 g/dL (6.4-8.2); SODIUM 139 mmol/L (136-145); UREA NITROGEN 27 mg/dL (7-18); eGFR NON AFRICAN AMERICAN 55 mL/min (90-120)
[2019-04-09 13:01] LABS: CKMB 33.6 U/L (0.0-3.6); CREATINE KINASE 143 UL (21-232); MAGNESIUM - SERUM 2.1 mg/dL (1.8-2.4)
[2019-04-09 13:04] LABS: TROPONIN-I 2.776 ng/mL (0.000-0.060)
--- NOTE | 2019-04-09 13:06 | NUR ---
CRITICAL LAB ELEVATED TROP 2.776DR CARTER NOTIFIED
[2019-04-09 14:17] LABS: DIGOXIN 0.85 ng/mL (0.90-2.00); THYROID STIMULATING HORMONE 2.24 uIU/mL (0.36-3.74)
--- NOTE | 2019-04-09 14:53 | NUR ---
TRANSFER FROM ER BY STRETCHER. OREINTED TO ROOM. CALL LIGHT IN REACH. WILL CONT. PLAN OF CARE.
--- NOTE | 2019-04-09 14:58 | NUR ---
PT ARRIVED TO ROOM ALERT AND ORIENTED X4 ON STRECHER WITH AT BEDSIDE. PT ON TELEMETRY. PT DENIES ANY NEEDS OR PAIN AT THIS TIME. BED LOW CALL LIGHT WITHIN REACH. WILL CONTINUE TO MONITOR.
[2019-04-09 19:03] LABS: CKMB 52.5 U/L (0.0-3.6); CREATINE KINASE 212 UL (21-232)
[2019-04-09 19:04] LABS: TROPONIN-I 5.877 ng/mL (0.000-0.060)
--- NOTE | 2019-04-09 19:08 | NUR ---
SPOKE WITH ABOUT TROPOIN-5.877
--- NOTE | 2019-04-09 19:17 | NUR ---
RECEIVED REPORT, WILL ASSUME CARE OF PT, A&O, DENIES ANY NEEDS AT THIS TIME, [id number],BED IS LOW, SRX2, CALL LIGHT IN REACH, WILL CONTINUE PLAN OF CARE
[2019-04-10 00:39] LABS: CREATINE KINASE 182 UL (21-232)
[2019-04-10 00:40] LABS: TROPONIN-I 5.666 ng/mL (0.000-0.060)
[2019-04-10 04:23] VITALS: BP 107/61
--- NOTE | 2019-04-10 07:26 | NUR ---
CONSENTS FOR HEART CATH SIGNED BY PT. PT A/O X4, RESP EVEN AND NONLABORED ON 2L. RT AC INFUSING CARDIZEM AT 5ML/HR. MONITOR SHOWING PACED AT 127. PT DENIES ANY NEEDS AT THIS TIME. CALL LIGHT IN REACH, AT BEDSIDE, NAD NOTED, WILL CONTINUE PLAN OF CARE.
[2019-04-10 08:08] VITALS: BP 104/64
--- NOTE | 2019-04-10 08:42 | NUR ---
ASPIRIN GIVEN WITH A SIP OF WATER. PT RESTING COMFORTABLY IN BED, DENIES ANY NEEDS AT THIS TIME. CALL LIGHT IN REACH, NAD NOTED,W ILL CONTINUE TO MONITOR.
--- NOTE | 2019-04-10 11:02 | NUR ---
PRE-OP MEDS GIVEN AT THIS TIME.
[2019-04-10 11:40] LABS: BASOPHILS 0.7 % (0-2); EOSINOPHILS 1.8 % (0-7); HEMATOCRIT 40.3 % (42.0-54.0); HEMOGLOBIN 13.4 g/dL (13.5-17.5); IMMATURE GRANULOCYTES 0.2 % (0-5); LYMPHOCYTES 36.6 % (15-50); MCH 29.8 pg (26.0-34.0); MCHC 33.3 g/dL (31.0-37.0); MCV 89.6 fL (80.0-100.0); MEAN PLATELET VOLUME 9.4 fL (7.4-10.4); MONOCYTES 10.4 % (2-11); NEUTROPHILS 50.3 % (40-80); PLATELET COUNT 231 10x3/uL (130-400); RDW 15.7 % (11.5-14.5); WBC 10.5 10x3/uL (4.8-10.8)
--- NOTE | 2019-04-10 11:48 | NUR ---
TO CORPORATE LICENSED BROKER.
[2019-04-10 11:56] LABS: ANION GAP 17.1 mmol/L (8-16); CALCIUM 8.6 mg/dL (8.5-10.1); CARBON DIOXIDE 21.2 mmol/L (21.0-32.0); CREATININE - SERUM 1.3 mg/dL (0.6-1.3); POTASSIUM - SERUM 4.3 mmol/L (3.5-5.1)
[2019-04-10 11:57] VITALS: BP 132/82
--- NOTE | 2019-04-10 12:54 | NUR ---
RECEIVED PT BACK TO ROOM 2121, PT STILL A LITTLE DROWSY, EASILY AROUSES TO VOICE. VITAL SIGNS STABLE. RT DRESSING TO GROIN CDI, NO SIGNS OF BLEEDING OR HEMATOMA NOTED. PLACED PT ON Q15MIN VITALS, PLACED HEART MONITOR BACK ON, PT DENIES ANY NEEDS AT THIS TIME. INSTRUCTED PT TO RAMAIN FLAT FOR 2HR. CALL LIGHT IN REACH, AT BEDSIDE, NAD NOTED, WILL CONTINUE TO MONITOR.
[2019-04-10 13:21] VITALS: Ht 172.7 cm; Wt 83.1 kg
--- NOTE | 2019-04-10 13:46 | NUR ---
NO CHANGES TO RT GROIN FROM PREVIOUS ASSESSMENT. PT RESTING COMFORTABLY IN BED, DENIES ANY NEEDS AT THIS TIME. CALL LIGHT IN REACH, NAD NOTED, WILL CONTINUE TO MONITOR.
[2019-04-10 15:44] VITALS: BP 116/53
--- NOTE | 2019-04-10 17:03 | NUR ---
RT GROIN DRESSING CDI, NO SIGNS OF HEMATOMA OR BLEEDING NOTED TO RT GROIN. PT RESTING COMFORTABLY IN BED, DENIES ANY NEEDS AT THIS TIME. CALL LIGHT IN REACH, AT BEDSIDE, NAD NOTED.
--- NOTE | 2019-04-10 19:35 | NUR ---
ASSESSMENT COMPLETE. PT A&O. RESPERATIONS EVEN ON RA. IV TO RIGHT AC SL, SITE CLEAN AND DRY. PT DENIES PAIN OR NEEDS, BED LOW, CL IN REACH.
[2019-04-10 21:25] VITALS: BP 121/53
--- NOTE | 2019-04-10 22:07 | NUR ---
XANAX 0.125 MG GIVEN FOR S/S AGITATION.
--- NOTE | 2019-04-11 01:34 | NUR ---
RESTING WITH EYES CLOSED, RESPERATIONS EVEN, NO S/S DISTRESS NOTED.
[2019-04-11 01:56] VITALS: BP 119/50
--- NOTE | 2019-04-11 05:04 | NUR ---
I have reviewed this patient and I concur with the Shift Assessment completed by the Licensed Practical Nurse today this shift.
--- NOTE | 2019-04-11 06:22 | NUR ---
CORPSMAN MEDS GIVEN WITH FRESH ICE WATER. PT DENIES PAIN OR NEEDS. ASKING IF HE WILL GO HOME TODAY.
[2019-04-11 06:23] VITALS: BP 118/57
[2019-04-11 06:23] LABS: BASOPHILS 0.5 % (0-2); HEMATOCRIT 38.2 % (42.0-54.0); HEMOGLOBIN 12.7 g/dL (13.5-17.5); IMMATURE GRANULOCYTES 0.2 % (0-5); LYMPHOCYTES 37.8 % (15-50); MCH 30.1 pg (26.0-34.0); MCHC 33.2 g/dL (31.0-37.0); MCV 90.5 fL (80.0-100.0); MEAN PLATELET VOLUME 9.7 fL (7.4-10.4); MONOCYTES 10.9 % (2-11); NEUTROPHILS 48.6 % (40-80); PLATELET COUNT 210 10x3/uL (130-400); RBC 4.22 10x6/uL (4.20-6.10); RDW 16.1 % (11.5-14.5); WBC 10.1 10x3/uL (4.8-10.8)
[2019-04-11 06:32] LABS: ANION GAP 17.4 mmol/L (8-16); CALCIUM 8.4 mg/dL (8.5-10.1); CARBON DIOXIDE 22.5 mmol/L (21.0-32.0); CREATININE - SERUM 1.4 mg/dL (0.6-1.3); MAGNESIUM - SERUM 2.4 mg/dL (1.8-2.4); POTASSIUM - SERUM 3.9 mmol/L (3.5-5.1)
--- NOTE | 2019-04-11 07:30 | NUR ---
ASSESSMENT COMPLETED. ALERT AND ORIENTED.TELEMERTY SHOWS PACED RHYTHM AT 62. RIGHT GROIN SOFT WITH DRSG DRY AND INTACT.RIGHT AC SL. UP WITH ASSIST. WANTS TO GO HOME.
[2019-04-11 08:00] VITALS: BP 139/60
[2019-04-11 12:00] VITALS: BP 113/50
--- NOTE | 2019-04-11 13:20 | NUR ---
I have reviewed this patient and I concur with the Shift Assessment completed by the Licensed Practical Nurse today this shift.
--- NOTE | 2019-04-11 14:24 | NUR ---
REHAB PRESCREENING Case management notified rehab that Mr. Deshpande is not interested in acute inpatient rehab at this time. Thank you for this referral! Ramona Delgado, PHYSICIAN INTERNIST Rehab PD
--- NOTE | 2019-04-11 14:35 | MORECARE ---
CASE MANAGEMENT DISCHARGE SUMMARY PATIENT: LUZ JIMENEZ UNIT: [id number] ADM DATE: 04/10/19 AGE: 88 : 30 SEX: M ROOM/BED: D.9862 AUTHOR: FANY,DOC PHYSICIAN: REFERRING PHYSICIAN: ELIEZER KINGSTON MD DATE OF SERVICE: 04/11/19 Discharge Plan Patient Name: LUZ JIMENEZ Facility: [facility]:[place] : 1930 Planned Disposition: Home with Home Health Anticipated Discharge Date: 04/11/19 Discharge Date: Expected LOS: 1 Initial Reviewer: [email or web address] Initial Review Date: 04/11/2019 Generated: 04/11/19 3:34 pm DCPIA - Discharge Planning Initial Assessment Updated by LORENE: Brendan Hawk on 04/11/19 2:32 pm * Is the patient Alert and Oriented? Yes * How many steps to enter\exit or inside your home? 2 W/ RAILS * PCP DR. RICHARD LANDERS * Pharmacy [facility] IN [place] * Preadmission Environment Home with Family * ADLs Partial Dependent * Partial ADLs (Assistance needed) Medication Management * Equipment Cane CPAP Oxygen Walker * Other Equipment [facility] * List name and contact numbers for known caregivers / representatives who currently or will assist patient after discharge: SAMIR JIMENEZ, SPOUSE, * Verbal permission to speak to the caregivers and representatives has been obtained from the patient. Yes * Community resources currently utilized Home Health * Please name any agencies selected above. [facility] * Additional services required to return to the preadmission environment? No * Can the patient safely return to the preadmission environment? Yes * Has this patient been hospitalized within the prior 30 days at any hospital? Yes External Providers External Provider: [facility] Next Contact Date: 04/11/2019 Service Request Date: Service Type: Resolution: Reviewer: Comments: Coverage Notice Reviewer: [email or web address] - Brendan Hawk Notice Issued Date-Time: 04/11/2019 14:05 Notice Type: Patient Choice Letter Notice Delivered To: Patient Relationship to Patient: Manager Of Pharmacy Name: Delivery Method: HAND - Hand Delivered Caitlyn Days: Prior Verbal Notification: Recipient Understood Notice: Yes Recipient Signature: Yes Med Rec Note Co-signed by Attending: Coverage Notice Comment: [facility], PT STATES IT IS ONE OF THEM ALREADY COMING OUT AND HE WANTS THEM. (LATER DETERMINED TO BE [facility]) Patient Name: LUZ JIMENEZ Page [phone] at 1435 All edits/amendments must be made on the electronic document DICTATION DATE: 04/11/191433 WEB CONTENT COORDINATOR: ZAFAR 04/11/191433 RPT#: [id number] DC DATE: STATUS: ADM IN [facility] [address] [place] [address] END OF REPORT
--- NOTE | 2019-04-11 14:51 | MORECARE ---
CASE MANAGEMENT DISCHARGE SUMMARY PATIENT: LUZ JIMENEZ UNIT: [id number] ADM DATE: 04/10/19 AGE: 88 : 30 SEX: M ROOM/BED: D.9259 AUTHOR: FANYDOC PHYSICIAN: REFERRING PHYSICIAN: ELIEZER KINGSTON MD DATE OF SERVICE: 04/11/19 Discharge Plan Patient Name: LUZ JIMENEZ Facility: [facility]:[place] : 1930 Planned Disposition: Home with Home Health Anticipated Discharge Date: 04/11/19 Discharge Date: Expected LOS: 1 Initial Reviewer: [email or web address] Initial Review Date: 04/11/2019 Generated: 04/11/19 3:51 pm Comments DCP- Discharge Planning Updated by [email or web address]: Brendan Hawk on 04/11/19 1:[address] Patient Name: LUZ JIMENEZ Admission Status: ER Accout number: [id number] Admission Date: 04-10-2019 : 1930 Admission Diagnosis: Attending: ELIEZER KINGSTON Current LOS: 1 Anticipated DC Date: 04-11-2019 Planned Disposition: Home with Home Health Primary Insurance: MEDICARE A & B PLANNED EXTERNAL PROVIDER: [facility] Discharge Planning Comments: CM RECEIVED INPATIENT REHAB PRESCREENING ORDER. CM MET WITH PT AND SPOUSE IN ROOM TO DISCUSS DISCHARGE PLANNING AND NEEDS. LUZ JIMENEZ provided verbal consent to discuss current and ongoing needs with/in the presence of: SPOUSE, SAMIR. PT REPORTS LIVING AT HOME DEPENDENT WITH SPOUSE WHO ASSISTS WITH MEDICATION MANAGEMENT. PT HAS CANE, CPAP, HOME OXYGEN AND WALKER FROM [facility]. PT HAS HOME HEALTH WITH EITHER [facility], HE DOES NOT REMEMBER, BUT WANTS THE SAME COMPANY TO RESUME SERVICES. PROVIDER LISTING GIVEN, PT SIGNED CHOICE FOR [facility] AND [facility]. PT REPORTS HE IS NOT GOING TO REHAB, HE THERE FOR ALMOST A MONTH AND WANTS TO GO HOME. CM DISCUSSED AVAILABILITY OF HOME HEALTH, REHAB SERVICES AND MEDICAL EQUIPMENT. PT DENIES DISCHARGE NEEDS OTHER THAN HOME HEALTH RESUMPTION. PT REPORTS HE WANTS TO GO HOME TODAY AND HIS SPOUSE IS HERE TO PICK HIM UP FOR DISCHARGE HOME. CM NOTIFIED MIRIAM WARREN AND [facility] OF INPATIENT REHAB. CM CALLED [facility], PT IS NOT ACTIVE WITH THEM. CM CALLED [facility],[phone], SPOKE TO FERNANDO WHO VERIFIED PT IS ACTIVE WITH THEM AND THEY WILL RESUME HOME HEALTH TOMORROW. CM FAXED HOSPITAL STAY AND DISCHARGE INFORMATION TO [facility] AT [phone]. GEOTHERMAL PRODUCTION MANAGER NURSE NOTIFIED. German Teacher: Brendan Hawk DCPIA - Discharge Planning Initial Assessment Updated by [email or web address]: Brendan Hawk on 04/11/19 2:32 pm * Is the patient Alert and Oriented? Yes * How many steps to enter\exit or inside your home? 2 W/ RAILS * PCP DR. RICHARD GREENBRAE * Pharmacy [facility] [place] * Preadmission Environment Home with Family * ADLs Partial Dependent * Partial ADLs (Assistance needed) Medication Management * Equipment Cane CPAP Oxygen Walker * Other Equipment [facility] * List name and contact numbers for known caregivers / representatives who currently or will assist patient after discharge: SAMIR JIMENEZ, SPOUSE, * Verbal permission to speak to the caregivers and representatives has been obtained from the patient. Yes * Community resources currently utilized Home Health * Please name any agencies selected above. [facility], NURSING AND PHYSICAL THERAPY * Additional services required to return to the preadmission environment? No * Can the patient safely return to the preadmission environment? Yes * Has this patient been hospitalized within the prior 30 days at any hospital? Yes Coverage Notice Reviewer: [email or web address] - Brendan Hawk Notice Issued Date-Time: 04/11/2019 14:05 Notice Type: Patient Choice Letter Notice Delivered To: Patient Relationship to Patient: Transplant Immunologist Name: Delivery Method: HAND - Hand Delivered Caitlyn Days: Prior Verbal Notification: Recipient Understood Notice: Yes Recipient Signature: Yes Med Rec Note Co-signed by Attending: Coverage Notice Comment: [facility], PT STATES IT IS ONE OF THEM ALREADY COMING OUT AND HE WANTS THEM. (LATER DETERMINED TO BE [facility]) Last DP export: 04/11/19 1:34 p Patient Name: LUZ JIMENEZ Page 05850 at 1451 All edits/amendments must be made on the electronic document DICTATION DATE: 04/11/191450 HOSPITAL MEDICAL BILLER: ZAFAR 04/11/19 145 RPT#: [id number] DC DATE: STATUS: ADM IN [facility] [address] [place] [address] END OF REPORT
--- NOTE | 2019-04-11 15:05 | MORECARE ---
CASE MANAGEMENT DISCHARGE SUMMARY PATIENT: LUZ JIMENEZ UNIT: [id number] ADM DATE: 04/10/19 AGE: 88 : 30 SEX: M ROOM/BED: D.9669 AUTHOR: FANYDOC PHYSICIAN: REFERRING PHYSICIAN: ELIEZER KINGSTON MD DATE OF SERVICE: 04/11/19 Discharge Plan Patient Name: LUZ JIMENEZ Facility: [facility]:[place] : 1930 Planned Disposition: Home with Home Health Anticipated Discharge Date: 04/11/19 Discharge Date: Expected LOS: 1 Initial Reviewer: [email or web address] Initial Review Date: 04/11/2019 Generated: 04/11/19 4:05 pm Comments DCP- Discharge Planning Updated by [email or web address]: Brendan Hawk on 04/11/19 1:[address] Patient Name: LUZ JIMENEZ Admission Status: ER Accout number: [id number] Admission Date: 04-10-2019 : 1930 Admission Diagnosis: Attending: ELIEZER KINGSTON Current LOS: 1 Anticipated DC Date: 04-11-2019 Planned Disposition: Home with Home Health Primary Insurance: MEDICARE A & B PLANNED EXTERNAL PROVIDER: [facility] Discharge Planning Comments: CM RECEIVED INPATIENT REHAB PRESCREENING ORDER. CM MET WITH PT AND SPOUSE IN ROOM TO DISCUSS DISCHARGE PLANNING AND NEEDS. LUZ JIMENEZ provided verbal consent to discuss current and ongoing needs with/in the presence of: SPOUSE, SAMIR. PT REPORTS LIVING AT HOME DEPENDENT WITH SPOUSE WHO ASSISTS WITH MEDICATION MANAGEMENT. PT HAS CANE, CPAP, HOME OXYGEN AND WALKER FROM [facility]. PT HAS HOME HEALTH WITH [facility]ITHER [facility], HE DOES NOT REMEMBER, BUT WANTS THE SAME COMPANY TO RESUME SERVICES. PROVIDER LISTING GIVEN, PT SIGNED CHOICE FOR [facility] AND [facility]. PT REPORTS HE IS NOT GOING TO REHAB, HE THERE FOR ALMOST A MONTH AND WANTS TO GO HOME. CM DISCUSSED AVAILABILITY OF HOME HEALTH, REHAB SERVICES AND MEDICAL EQUIPMENT. PT DENIES DISCHARGE NEEDS OTHER THAN HOME HEALTH RESUMPTION. PT REPORTS HE WANTS TO GO HOME TODAY AND HIS SPOUSE IS HERE TO PICK HIM UP FOR DISCHARGE HOME. CM NOTIFIED MIRIAM WARREN AND LEIDY OF INPATIENT REHAB. CM CALLED [facility], PT IS NOT ACTIVE WITH THEM. CM CALLED [facility],[phone], SPOKE TO FERNANDO WHO VERIFIED PT IS ACTIVE WITH THEM AND THEY WILL RESUME HOME HEALTH TOMORROW. CM FAXED HOSPITAL STAY AND DISCHARGE INFORMATION TO [facility] AT [phone]. CARTRIDGE MAKER NURSE NOTIFIED. Tallow Refiner: Brendan Hawk DCPIA - Discharge Planning Initial Assessment Updated by [email or web address]: Brendan Hawk on 04/11/19 2:32 pm * Is the patient Alert and Oriented? Yes * How many steps to enter\exit or inside your home? 2 W/ RAILS * PCP DR. RICHARD CRESSON * Pharmacy [facility] [place] * Preadmission Environment Home with Family * ADLs Partial Dependent * Partial ADLs (Assistance needed) Medication Management * Equipment Cane CPAP Oxygen Walker * Other Equipment [facility] * List name and contact numbers for known caregivers / representatives who currently or will assist patient after discharge: SAMIR JIMENEZ, SPOUSE, * Verbal permission to speak to the caregivers and representatives has been obtained from the patient. Yes * Community resources currently utilized Home Health * Please name any agencies selected above. [facility], NURSING AND PHYSICAL THERAPY * Additional services required to return to the preadmission environment? No * Can the patient safely return to the preadmission environment? Yes * Has this patient been hospitalized within the prior 30 days at any hospital? Yes Coverage Notice Reviewer: [id number] - rBendan Hawk Notice Issued Date-Time: 04/11/2019 14:05 Notice Type: Patient Choice Letter Notice Delivered To: Patient Relationship to Patient: Biodiesel Plant Operations Engineer Name: Delivery Method: HAND - Hand Delivered Caitlyn Days: Prior Verbal Notification: Recipient Understood Notice: Yes Recipient Signature: Yes Med Rec Note Co-signed by Attending: Coverage Notice Comment: [facility], PT STATES IT IS ONE OF THEM ALREADY COMING OUT AND HE WANTS THEM. (LATER DETERMINED TO BE [facility]) Last DP export: 04/11/19 1:51 p Patient Name: LUZ JIMENEZ Page 99784 at 1508 All edits/amendments must be made on the electronic document DICTATION DATE: 04/11/19 1507 EGG SETTER: ZAFAR 04/11/19 1502 RPT#: [id number] DC DATE: STATUS: ADM IN [facility] [address] [place] [address] END OF REPORT
[2019-04-11] MEDS ORDERED: LANOXIN125 MCG PO ×2 (15:38→15:42)
[2019-04-11] MEDS ORDERED: CARTIA XT180 MG PO ×2 (15:38→15:42)
--- NOTE | 2019-04-11 16:03 | NUR ---
WRITTEN SCRIPT TO PATIENT FOR DIGOXIN 0.125 MG 1 TAB BY MOUTH EVERY OTHER DAY, AND CARDIZEM XT 180 MG 1 TAB BY MOUTH DAILY.
[2019-04-11 16:37] VITALS: BP 131/62
--- NOTE | 2019-04-11 17:11 | MORECARE ---
CASE MANAGEMENT DISCHARGE SUMMARY PATIENT: LUZ JIMENEZ UNIT: [id number] ADM DATE: 04/10/19 AGE: 88 : 30 SEX: M ROOM/BED: D.5995 AUTHOR: FANYDOC PHYSICIAN: REFERRING PHYSICIAN: ELIEZER KINGSTON MD DATE OF SERVICE: 04/11/19 Discharge Plan Patient Name: LUZ JIMENEZ Facility: [facility]:[place] : 1930 Planned Disposition: Home with Home Health Anticipated Discharge Date: 04/11/19 Discharge Date: Expected LOS: 1 Initial Reviewer: [email or web address] Initial Review Date: 04/11/2019 Generated: 04/11/19 6:11 pm Comments DCP- Discharge Planning Updated by [email or web address]: Brendan Hawk on 04/11/19 1:[address] Patient Name: LUZ JIMENEZ Admission Status: ER Accout number: [id number] Admission Date: 04-10-2019 : 1930 Admission Diagnosis: Attending: ELIEZER KINGSTON Current LOS: 1 Anticipated DC Date: 04-11-2019 Planned Disposition: Home with Home Health Primary Insurance: MEDICARE A & B PLANNED EXTERNAL PROVIDER: [facility] Discharge Planning Comments: CM RECEIVED INPATIENT REHAB PRESCREENING ORDER. CM MET WITH PT AND SPOUSE IN ROOM TO DISCUSS DISCHARGE PLANNING AND NEEDS. LUZ JIMENEZ provided verbal consent to discuss current and ongoing needs with/in the presence of: SPOUSE, SAMIR. PT REPORTS LIVING AT HOME DEPENDENT WITH SPOUSE WHO ASSISTS WITH MEDICATION MANAGEMENT. PT HAS CANE, CPAP, HOME OXYGEN AND WALKER FROM [facility]. PT HAS HOME HEALTH WITH [facility], HE DOES NOT REMEMBER, BUT WANTS THE SAME COMPANY TO RESUME SERVICES. PROVIDER LISTING GIVEN, PT SIGNED CHOICE FOR [facility]. PT REPORTS HE IS NOT GOING TO REHAB, HE THERE FOR ALMOST A MONTH AND WANTS TO GO HOME. CM DISCUSSED AVAILABILITY OF HOME HEALTH, REHAB SERVICES AND MEDICAL EQUIPMENT. PT DENIES DISCHARGE NEEDS OTHER THAN HOME HEALTH RESUMPTION. PT REPORTS HE WANTS TO GO HOME TODAY AND HIS SPOUSE IS HERE TO PICK HIM UP FOR DISCHARGE HOME. CM NOTIFIED [facility] OF INPATIENT REHAB. CM CALLED [facility], PT IS NOT ACTIVE WITH THEM. CM CALLED [facility],[phone], SPOKE TO FERNANDO WHO VERIFIED PT IS ACTIVE WITH THEM AND THEY WILL RESUME HOME HEALTH TOMORROW. CM FAXED HOSPITAL STAY AND DISCHARGE INFORMATION TO [facility] AT [phone]. THIRD MATE NURSE NOTIFIED. Condemnation Engineer: Brendan Hawk DCPIA - Discharge Planning Initial Assessment Updated by [id number]: Brendan Hawk on 04/11/19 2:32 pm * Is the patient Alert and Oriented? Yes * How many steps to enter\exit or inside your home? 2 W/ RAILS * PCP DR. RICHARD ISELIN * Pharmacy [facility] [place] * Preadmission Environment Home with Family * ADLs Partial Dependent * Partial ADLs (Assistance needed) Medication Management * Equipment Cane CPAP Oxygen Walker * Other Equipment [facility] * List name and contact numbers for known caregivers / representatives who currently or will assist patient after discharge: SAMIR JIMENEZ, SPOUSE, * Verbal permission to speak to the caregivers and representatives has been obtained from the patient. Yes * Community resources currently utilized Home Health * Please name any agencies selected above. [facility], NURSING AND PHYSICAL THERAPY * Additional services required to return to the preadmission environment? No * Can the patient safely return to the preadmission environment? Yes * Has this patient been hospitalized within the prior 30 days at any hospital? Yes Coverage Notice Reviewer: [id number] - Brendan Hawk Notice Issued Date-Time: 04/11/2019 14:05 Notice Type: Patient Choice Letter Notice Delivered To: Patient Relationship to Patient: Supervisor Record Press Name: Delivery Method: HAND - Hand Delivered Caitlyn Days: Prior Verbal Notification: Recipient Understood Notice: Yes Recipient Signature: Yes Med Rec Note Co-signed by Attending: Coverage Notice Comment: [facility], PT STATES IT IS ONE OF THEM ALREADY COMING OUT AND HE WANTS THEM. (LATER DETERMINED TO BE [facility]) Last DP export: 04/11/19 2:05 p Patient Name: LUZ JIMENEZ Page 82042 at 4521 All edits/amendments must be made on the electronic document DICTATION DATE: 04/11/191709 PATIENT TRANSITION SPECIALIST: ZAFAR 04/11/191709 RPT#: [id number] DC DATE: STATUS: ADM IN [facility] [address] [place] [address] END OF REPORT
--- NOTE | 2019-04-11 18:05 | NUR ---
PT DISCHARGED. IV DCD WITH TIP INTACT. TO PRIVATE CAR PER WHEEL CHAIR
== END 2019-04-11 18:15 | disposition home health service (06) | DRG 280 ==
LOC: D.ER 12:04 → D.M2 13:50 → OBSVTIME 04-10 17:00 → D.M2 04-10 17:28
PROVIDERS: Emergency Medicine; Family Medicine; Internal Medicine Cardiovascular Disease; ADMIT Internal Medicine Nephrology; ATTEND Internal Medicine Nephrology
PROC: B2121ZZ Fluoroscopy of Single Coronary Artery Bypass Graft using Low Osmolar Contrast (ICD-10-PCS; 2019-04-10)
PROC: B2151ZZ Fluoroscopy of Left Heart using Low Osmolar Contrast (ICD-10-PCS; 2019-04-10)
PROC: B2181ZZ Fluoroscopy of Left Internal Mammary Bypass Graft using Low Osmolar Contrast (ICD-10-PCS; 2019-04-10)
PROC: 4A023N7 Measurement of Cardiac Sampling and Pressure, Left Heart, Percutaneous Approach (ICD-10-PCS; 2019-04-10)
PROC: B2111ZZ Fluoroscopy of Multiple Coronary Arteries using Low Osmolar Contrast (ICD-10-PCS; principal; 2019-04-10 11:38)
DX: I21.A1 Myocardial infarction type 2 (principal); I50.23 Acute on chronic systolic (congestive) heart failure; R00.0 Tachycardia, unspecified; I11.0 Hypertensive heart disease with heart failure; I25.5 Ischemic cardiomyopathy; D64.9 Anemia, unspecified; I48.0 Paroxysmal atrial fibrillation; Z95.0 Presence of cardiac pacemaker; I25.119 Atherosclerotic heart disease of native coronary artery with unspecified angina pectoris

== ENCOUNTER 2019-04-16 13:00 | Inpatient (IN) | payer MEDICARE, BC ==
[~2019-04-16] VITALS: Ht 172.7 cm; Wt 72.1 kg
[2019-04-16] VITALS (8 sets, daily range): BP systolic 131–158; BP diastolic 47–99; BMI 24.2
[2019-04-16 13:24] LABS: BASOPHILS 0.5 % (0-2); HEMATOCRIT 36.8 % (42.0-54.0); HEMOGLOBIN 12.5 g/dL (13.5-17.5); IMMATURE GRANULOCYTES 0.2 % (0-5); LYMPHOCYTES 24.6 % (15-50); MCH 30.1 pg (26.0-34.0); MCV 88.7 fL (80.0-100.0); MEAN PLATELET VOLUME 9.5 fL (7.4-10.4); MONOCYTES 8.4 % (2-11); NEUTROPHILS 64.3 % (40-80); PLATELET COUNT 192 10x3/uL (130-400); RBC 4.15 10x6/uL (4.20-6.10); RDW 15.3 % (11.5-14.5); WBC 11.6 10x3/uL (4.8-10.8)
[2019-04-16 13:36] LABS: ALBUMIN 3.1 g/dL (3.4-5.0); ANION GAP 14.7 mmol/L (8-16); BILIRUBIN - TOTAL 0.4 mg/dL (0.2-1.3); CALCIUM 8.3 mg/dL (8.5-10.1); CREATININE - SERUM 1.3 mg/dL (0.6-1.3); POTASSIUM - SERUM 3.7 mmol/L (3.5-5.1); PROTEIN - SERUM 6.9 g/dL (6.4-8.2)
--- NOTE | 2019-04-16 14:00 | NUR ---
GEOVANNAIE SPECIMEN OBTAINED, LABELED AT BS AND SENT TO LAB
--- NOTE | 2019-04-16 14:11 | NUR ---
TO ER #6, CHANGED TO GOWN. CM, NIBP PLACED.
[2019-04-16 15:01] LABS: APPEARANCE CLEAR (CLEAR); BILIRUBIN NEGATIVE (NEGATIVE); COLOR YELLOW (YELLOW); GLUCOSE NEGATIVE (NEGATIVE); KETONE NEGATIVE (NEGATIVE); NITRITE NEGATIVE (NEGATIVE); PROTEIN NEGATIVE (NEGATIVE); SPECIFIC GRAVITY 1.015 (1.005-1.020); UROBILINOGEN NORMAL (NORMAL)
[2019-04-16 17:29] LABS: TROPONIN-I 0.111 ng/mL (0.000-0.060)
--- NOTE | 2019-04-16 21:26 | NUR ---
PT ARRIVED ON UNIT VIA STRETCHER ESCORTED BY ER STAFF AND SPOUSE. TRANSFERRED TO BED AND POSITIONED FOR COMFORT. IV IN RIGH AC SALINE LOCKED.
--- NOTE | 2019-04-16 21:45 | NUR ---
TELEMETRY PLACED ON PT PER ORDER AND READING 60 PACED AT THIS ASSESSMENT.
--- NOTE | 2019-04-16 22:15 | NUR ---
CALLED RT TO COME AND ASSIST PT WITH HOME CPAP SET UP.
--- NOTE | 2019-04-16 23:43 | NUR ---
RECEIVED ORDERS FROM DR KINGSTON TO START ALL HOME MEDICATIONS AND FOR ZOFRAN 4 MG IVP Q4 PRN NAUSEA, AND DILAUDID 0.5 MG IVP Q4HR PRN ABDOMINAL PAIN / CRAMPS.
--- NOTE | 2019-04-17 | NUR ---
ADMISSION ASSESSMENT AND HISTORY COMPLETE.
[2019-04-17 04:30] VITALS: BP 130/50
[2019-04-17 07:56] VITALS: BP 143/44
--- NOTE | 2019-04-17 09:47 | NUR ---
PT ALERT X 4. BREATH SOUNDS CLEAR BILAT. TELEMETRY IN PLACE. IV TO RIGHT AC, SALINE LOCKED. PT REPORTING NO PAIN AT THIS TIME. NO NAUSEA. SCD'S IN PLACE. FAMILY AT BEDSIDE. BED LOW, CALL LIGHT IN REACH. NO OTHER NEEDS AT THIS TIME.
[2019-04-17 10:06] LABS: % SATURATION 15 % (15-55); IRON 41 ug/dl (35-150); TOTAL IRON BIND CAPACITY 258 ug/dl (260-445); UNSAT IRON BIND CAPACITY 217 ug/dl (150-375)
[2019-04-17 10:39] LABS: FERRITIN 66 ng/mL (3-244); LDH 298 U/L (85-227)
[2019-04-17 12:23] VITALS: Ht 172.7 cm; Wt 72.1 kg
[2019-04-17 12:37] VITALS: BP 145/53
[2019-04-17 12:39] LABS: APPEARANCE CLEAR (CLEAR); COLOR YELLOW (YELLOW)
[2019-04-17 12:40] LABS: BILIRUBIN NEGATIVE (NEGATIVE); GLUCOSE NEGATIVE (NEGATIVE); KETONE NEGATIVE (NEGATIVE); NITRITE NEGATIVE (NEGATIVE); PROTEIN NEGATIVE (NEGATIVE); UROBILINOGEN NORMAL (NORMAL)
[2019-04-17 14:38] LABS: APTT 30.5 SECONDS (22.8-39.4); INR 1.15 (0.85-1.17); PROTIME 14.2 SECONDS (11.6-15.0)
[2019-04-17 17:23] VITALS: BP 145/53
--- NOTE | 2019-04-17 17:26 | NUR ---
PT INSTRUCTED TO VOID. AFTER VOIDING, BLADDER SCAN COMPLETED. 260ML. MEEK PLACED WITH 300ML RETURN NOTED.
[2019-04-17 21:24] VITALS: BP 147/42
--- NOTE | 2019-04-17 23:30 | NUR ---
IV TO RIGHT AC LEAKING. DC'D WITH CATH INTACT. 20G RESITED TO RIGHT FOREARM, 1ST ATTEMPT. BLOOD RETURN NOTED, FLUSHES WITH EASE, NO COMPLAINTS FROM PT. WILL CONTINUE TO MONITOR.
[2019-04-18 01:28] VITALS: BP 143/42
--- NOTE | 2019-04-18 03:14 | NUR ---
I have reviewed this patient and I concur with the Shift Assessment completed by the Licensed Practical Nurse today this shift.
[2019-04-18 04:14] LABS: BASOPHILS 0.5 % (0-2); HEMATOCRIT 33.9 % (42.0-54.0); HEMOGLOBIN 11.4 g/dL (13.5-17.5); IMMATURE GRANULOCYTES 0.3 % (0-5); LYMPHOCYTES 31.4 % (15-50); MCH 29.8 pg (26.0-34.0); MCHC 33.6 g/dL (31.0-37.0); MCV 88.7 fL (80.0-100.0); MEAN PLATELET VOLUME 9.7 fL (7.4-10.4); MONOCYTES 9.4 % (2-11); NEUTROPHILS 55.4 % (40-80); PLATELET COUNT 175 10x3/uL (130-400); RBC 3.82 10x6/uL (4.20-6.10); RDW 15.7 % (11.5-14.5); WBC 11.5 10x3/uL (4.8-10.8)
[2019-04-18 04:31] LABS: CALC OSMOLALITY 283 mosm/kg (275-300); CALCIUM 7.6 mg/dL (8.5-10.1); CARBON DIOXIDE 21.3 mmol/L (21.0-32.0); CHLORIDE - SERUM 107 mmol/L (98-107); GLUCOSE 90 mg/dL (74-106); SODIUM 142 mmol/L (136-145); UREA NITROGEN 14 mg/dL (7-18)
[2019-04-18 04:51] LABS: CREATININE - SERUM 0.9 mg/dL (0.6-1.3); POTASSIUM - SERUM 3.1 mmol/L (3.5-5.1); eGFR NON AFRICAN AMERICAN 84 mL/min (90-120)
[2019-04-18 05:34] VITALS: BP 124/63
--- NOTE | 2019-04-18 08:05 | NUR ---
PT RESTING IN BED. NO ACUTE DISTRESS NOTED. DENIES PAIN AT THIS TIME. IV TO RIGHT FOREARM WITH NS @ 50ML/HR INFUSING VIA PUMP. SITE WITHOUT REDNESS OR EDEMA. F/C PATENT TO GRAVITY DRAINING YELLOW URINE. DENIES FURTHER NEEDS AT THIS TIME. CL WITHIN REACH. ENCOURAGED TO CALL WITH NEEDS. CONTINUE POC
[2019-04-18 08:38] VITALS: BP 141/48
[2019-04-18 10:14] LABS: FOLATE (FOLIC ACID) - SERUM >20.0 ng/mL (>3.0)
[2019-04-18] MEDS ORDERED: ASPIRIN325 MG PO (10:50)
[2019-04-18] MEDS ORDERED: FLOMAX0.4 MG PO (11:21)
--- NOTE | 2019-04-18 11:45 | NUR ---
F/C D/C'D PER MD ORDERS FOR DISCHARGE HOME. PT GAURANG WELL
--- NOTE | 2019-04-18 12:00 | NUR ---
PT ABLE TO VOID 250ML YELLOW URINE WITHOUT DIFFICULTY
--- NOTE | 2019-04-18 13:25 | MORECARE ---
CASE MANAGEMENT DISCHARGE SUMMARY PATIENT: LUZ JIMENEZ UNIT: [id number] ADM DATE: 04/16/19 AGE: 88 : 30 SEX: M ROOM/BED: D.2217 AUTHOR: MARE SOARES PHYSICIAN: REFERRING PHYSICIAN: ELIEZER KINGSTON MD DATE OF SERVICE: 04/18/19 Discharge Plan Patient Name: LUZ JIMENEZ [facility] [facility] 1930 Planned Disposition: Home with Home Health Anticipated Discharge Date: Discharge Date: Expected LOS: Initial Reviewer: [email or web address] Initial Review Date: 04/16/2019 Generated: 04/18/19 2:24 pm Patient Name: LUZ JIMENEZ Page 67840 at 1325 All edits/amendments must be made on the electronic document DICTATION DATE: 04/18/19 1324 MOLD CHANGER: ZAFAR 04/18/19 1324 RPT#: [id number] DC DATE: STATUS: ADM IN [facility] [address] [place] [address] END OF REPORT
--- NOTE | 2019-04-18 13:34 | MORECARE ---
CASE MANAGEMENT DISCHARGE SUMMARY PATIENT: LUZ JIMENEZ UNIT: [id number] ADM DATE: 04/16/19 AGE: 88 : 30 SEX: M ROOM/BED: D.2217 AUTHOR: MARE SOARES PHYSICIAN: REFERRING PHYSICIAN: ELIEZER KINGSTON MD DATE OF SERVICE: 04/18/19 Discharge Plan Patient Name: LUZ JIMENEZ [facility] [facility] 1930 Planned Disposition: Home with Home Health Anticipated Discharge Date: Discharge Date: Expected LOS: Initial Reviewer: [id number] Initial Review Date: 04/16/2019 Generated: 04/18/19 2:34 pm Comments DCP- Discharge Planning Updated by [email or web address]: Megan Hall on 04/18/19 12:[address] DC AND CLINICAL INFORMATION WAS GIVEN TO ATIF WALKER CLINICAL REP DCP- Discharge Planning Updated by [id number]: Megan Hall on 04/18/19 12:[address] Patient Name: LUZ JIMENEZ Admission Status: ER Accout number: [id number] Admission Date: 04-16-2019 : 1930 Admission Diagnosis: Attending: ELIEZER KINGSTON Current LOS: 2 Anticipated DC Date: Planned Disposition: Home with Home Health Primary Insurance: MEDICARE A & B Discharge Planning Comments: PATIENT WILL BE DISCHARGING HOME WITH HIS , HE IS CURRENT WITH [facility]. HE DENIES ANY NEEDS AND STATES HE HAS EVERYTHING HE NEEDS AT HOME. JENNIFER WITH [facility] OBTAINED. CM TO FOLLOW AND ASSIST NEEDED Asphalt Coater: Megan Hall Last DP export: 04/18/19 12:24 p Patient Name: LUZ JIMENEZ Page 18590 at 1334 All edits/amendments must be made on the electronic document DICTATION DATE: 04/18/191333 STAVE CUTTER: ZAFAR 04/18/19 133 RPT#: [id number] DC DATE: STATUS: ADM IN [facility] [address] [place] [address] END OF REPORT
--- NOTE | 2019-04-18 14:00 | NUR ---
PT IV D/C'D FROM RIGHT FOREARM FOR DISCHARGE HOME. CATH INTACT. PROVIDED WITH DISCHARGE INSTRUCTIONS WITH MEDICATION EDUCATION. FOLLOW UP APPOINTMENTS DISCUSSED WITH PATIENT. PT DENIES ANY QUESTIONS. PT TAKEN OUT VIA W/C TO PRIVATE VEHICLE WITH PERSONAL BELONGINGS.
--- NOTE | 2019-04-19 14:55 | MORECARE ---
CASE MANAGEMENT DISCHARGE SUMMARY PATIENT: LUZ JIMENEZ UNIT: [id number] ADM DATE: 04/16/19 AGE: 88 : 30 SEX: M ROOM/BED: D.2217 AUTHOR: MARE SOARES PHYSICIAN: REFERRING PHYSICIAN: ELIEZER KINGSTON MD DATE OF SERVICE: 04/19/19 Discharge Plan Patient Name: LUZ JIMENEZ [facility] [facility] 1930 Planned Disposition: Home with Home Health Anticipated Discharge Date: Discharge Date: 04/18/2019 Expected LOS: 0 Initial Reviewer: [email or web address] Initial Review Date: 04/16/2019 Generated: 04/19/19 3:55 pm Comments DCP- Discharge Planning Updated by [email or web address]: Megan Hall on 04/18/19 12:[address] DC AND CLINICAL INFORMATION WAS GIVEN TO ATIF WALKER CLINICAL REP DCP- Discharge Planning Updated by [email or web address]: Megan Hall on 04/18/19 12:[address] Patient Name: LUZ JIMENEZ Admission Status: ER Accout number: [id number] Admission Date: 04-16-2019 : 1930 Admission Diagnosis: Attending: ELIEZER KINGSTON Current LOS: 2 Anticipated DC Date: Planned Disposition: Home with Home Health Primary Insurance: MEDICARE A & B Discharge Planning Comments: PATIENT WILL BE DISCHARGING HOME WITH HIS , HE IS CURRENT WITH [facility]. HE DENIES ANY NEEDS AND STATES HE HAS EVERYTHING HE NEEDS AT HOME. JENNIFER WITH [facility] OBTAINED. CM TO FOLLOW AND ASSIST NEEDED Double Needle Operator Lockstitch: Megan Hall Last DP export: 04/18/19 12:34 p Patient Name: LUZ JIMENEZ Page 47140 at 1458 All edits/amendments must be made on the electronic document DICTATION DATE: 04/19/191454 CHICKEN RAISER: ZAFAR 04/19/191454 RPT#: [id number] DC DATE:04/18/19 STATUS: DIS IN [facility] [address] [place] [address] END OF REPORT
== END 2019-04-18 14:11 | disposition home health service (06) | DRG 394 ==
LOC: D.ER 13:00 → D.MS 20:29
PROVIDERS: Family Medicine; Surgery; ADMIT Internal Medicine Nephrology; ATTEND Internal Medicine Nephrology
DX: K55.1 Chronic vascular disorders of intestine (principal); I24.8 Other forms of acute ischemic heart disease; I48.91 Unspecified atrial fibrillation; I25.10 Atherosclerotic heart disease of native coronary artery without angina pectoris; I50.9 Heart failure, unspecified; I11.0 Hypertensive heart disease with heart failure

== ENCOUNTER 2019-04-20 13:44 | Inpatient (IN) | payer MEDICARE, BC ==
[~2019-04-20 13:44] MED LIST changes: +ASPIRIN325 MG PO; +FLOMAX0.4 MG PO
[2019-04-20 14:00] VITALS: BP 137/54
--- NOTE | 2019-04-20 14:00 | NUR ---
BLADDER SCAN DONE WITH 111 ML NOTED. PT ABLE TO VOID IN URINAL FOR UA SAMPLE.
[2019-04-20 15:10] LABS: TROPONIN-I 0.059 ng/mL (0.000-0.060)
[2019-04-20 15:19] LABS: HEMATOCRIT 33.5 % (42.0-54.0); HEMOGLOBIN 11.4 g/dL (13.5-17.5); MCH 29.8 pg (26.0-34.0); MCV 87.7 fL (80.0-100.0); PLATELET COUNT 161 10x3/uL (130-400); RBC 3.82 10x6/uL (4.20-6.10); RDW 15.8 % (11.5-14.5); WBC 21.4 10x3/uL (4.8-10.8)
[2019-04-20 15:33] LABS: APPEARANCE HAZY (CLEAR); COLOR YELLOW (YELLOW); SPECIFIC GRAVITY 1.015 (1.005-1.020)
[2019-04-20 15:34] LABS: BILIRUBIN NEGATIVE (NEGATIVE); GLUCOSE NEGATIVE (NEGATIVE); KETONE NEGATIVE (NEGATIVE); NITRITE POSITIVE (NEGATIVE); PROTEIN 2+ mg/dL (NEGATIVE); UROBILINOGEN NORMAL (NORMAL)
[2019-04-20 15:34] LABS: ALBUMIN 2.8 g/dL (3.4-5.0); BILIRUBIN - TOTAL 0.63 mg/dL (0.2-1.3); CALCIUM 8.3 mg/dL (8.5-10.1); CARBON DIOXIDE 21.8 mmol/L (21.0-32.0); CREATININE - SERUM 1.1 mg/dL (0.6-1.3); PROTEIN - SERUM 6.4 g/dL (6.4-8.2)
[2019-04-20 15:35] LABS: BACTERIA MANY /hpf (NONE SEEN); EPITHELIAL CELLS 0-5 /hpf (0-5); WHITE CELLS - URINE 25-50 /hpf (0-5)
[2019-04-20 15:38] LABS: POTASSIUM - SERUM 2.8 mmol/L (3.5-5.1)
--- NOTE | 2019-04-20 15:43 | NUR ---
CALL FROM LAB FOR K+ 2.8. ERP INFORMED.
[2019-04-20 15:58] LABS: LYMPHOCYTES 9 % (15-50); MONOCYTES 7 % (2-11); NEUTROPHILS 75 % (40-80)
[2019-04-20 15:59] LABS: PLATELET ESTIMATE NORMAL
[2019-04-20 21:43] VITALS: BP 127/50
[2019-04-20 22:33] VITALS: BP 127/50; BMI 24.3
--- NOTE | 2019-04-20 22:34 | NUR ---
RN NOTE: ADMISSION ASSESSMENT COMPLETE.
[2019-04-21 03:05] VITALS: BP 175/59
[2019-04-21 06:13] VITALS: BP 94/69
[2019-04-21 09:05] VITALS: BP 156/61
[2019-04-21 09:32] LABS: BASOPHILS 0.2 % (0-2); EOSINOPHILS 0.3 % (0-7); HEMATOCRIT 35.1 % (42.0-54.0); HEMOGLOBIN 11.9 g/dL (13.5-17.5); IMMATURE GRANULOCYTES 0.2 % (0-5); LYMPHOCYTES 12.6 % (15-50); MCHC 33.9 g/dL (31.0-37.0); MCV 88.4 fL (80.0-100.0); MEAN PLATELET VOLUME 9.7 fL (7.4-10.4); MONOCYTES 7.3 % (2-11); NEUTROPHILS 79.4 % (40-80); PLATELET COUNT 154 10x3/uL (130-400); RBC 3.97 10x6/uL (4.20-6.10); RDW 15.9 % (11.5-14.5); WBC 17.4 10x3/uL (4.8-10.8)
[2019-04-21 10:07] LABS: CALC OSMOLALITY 278 mosm/kg (275-300); CARBON DIOXIDE 21.3 mmol/L (21.0-32.0); CHLORIDE - SERUM 108 mmol/L (98-107); GLUCOSE 90 mg/dL (74-106); POTASSIUM - SERUM 3.2 mmol/L (3.5-5.1); SODIUM 140 mmol/L (136-145); UREA NITROGEN 13 mg/dL (7-18)
[2019-04-21 10:08] LABS: CREATININE - SERUM 0.8 mg/dL (0.6-1.3); eGFR NON AFRICAN AMERICAN > 90 mL/min (90-120)
--- NOTE | 2019-04-21 10:42 | NUR ---
MORNING ASSESSMENT COMPLETE. SEE ASSESSMENT FLOWSHEET FOR FURTHER DETAILS. PT LYING IN BED AAO X4 TO PERSON, PLACE, TIME, AND SITUATION. DENIES NEEDS AT THIS TIME. AND FAMILY AT BEDSIDE. PLACED F/C IN USING STERILE PRECAUTIONS- 300ML DRAINED OF CLOUDLY URINE. CL IN REACH. SIDE RAILS UP X3 FOR PT SAEFTY. BED IN LOWEST POSITION.
[2019-04-21 12:57] VITALS: BP 121/47
[2019-04-21 13:45] VITALS: BMI 24.3
[2019-04-21 20:00] VITALS: BP 133/56
[2019-04-22] VITALS: BP 131/60
--- NOTE | 2019-04-22 | NUR ---
VITAL SIGNS STABLE, SPO2 96% ON 3.5 L. TITRATED TO 2L LITERS. SPO2 REMAINING AT 96-97%. SKIN SURROUNDING IV TO RIGHT FOREARM APPEARS TAUT, RED, AND EDEMATOUS. PT DENIES NOTICING ANY PAIN. DC'd IV, CATHETER INTACT. MEPILEX DRESSING TO LEFT HIP APPEARS SATURATED WITH BLOOD. CLEANSED AND CHANGED DRESSING. WILL CONTINUE TO MONITOR.
--- NOTE | 2019-04-22 03:02 | NUR ---
I have reviewed this patient and I concur with the Shift Assessment completed by the Licensed Practical Nurse today this shift.
[2019-04-22 04:00] VITALS: BP 121/67
--- NOTE | 2019-04-22 04:24 | NUR ---
PT COMPLAINING OF LEAKING DURING BLADDER SPASMS AND REPORTS FULL-FEELING SENSATION IN BLADDER. PT READJUSTED, MEEK TUBING BEGAN FILLING WITH URINE, CONTAINING SOME BLOODCLOTS. ENCOURAGE PT TO BE CHANGING POSITIONS FREQUENTLY AND AMBULATE OCCASIONALLY IF POSSIBLE, BUT MINDFUL OF MEEK. PT AMBULATED TO BATHROOM WITH ASSIST, BUT WAS VERY UNSTEADY. PT HAD COPIOUS AMOUNT OF LIQUID STOOL. CHANGED LINENS AND ASSISTED TO BED. BSC COULD NOT BE FOUND, WALKER BROUGHT TO ROOM.
[2019-04-22 06:18] LABS: BASOPHILS 0.2 % (0-2); EOSINOPHILS 0.7 % (0-7); HEMATOCRIT 33.7 % (42.0-54.0); HEMOGLOBIN 11.4 g/dL (13.5-17.5); IMMATURE GRANULOCYTES 0.3 % (0-5); LYMPHOCYTES 18.3 % (15-50); MCH 29.6 pg (26.0-34.0); MCHC 33.8 g/dL (31.0-37.0); MCV 87.5 fL (80.0-100.0); MEAN PLATELET VOLUME 9.9 fL (7.4-10.4); MONOCYTES 8.6 % (2-11); NEUTROPHILS 71.9 % (40-80); PLATELET COUNT 176 10x3/uL (130-400); RBC 3.85 10x6/uL (4.20-6.10)
[2019-04-22 06:22] LABS: WBC 12.4 10x3/uL (4.8-10.8)
[2019-04-22 06:23] LABS: CALC OSMOLALITY 278 mosm/kg (275-300); CALCIUM 7.7 mg/dL (8.5-10.1); CARBON DIOXIDE 21.6 mmol/L (21.0-32.0); CHLORIDE - SERUM 108 mmol/L (98-107); CREATININE - SERUM 0.8 mg/dL (0.6-1.3); GLUCOSE 89 mg/dL (74-106); SODIUM 141 mmol/L (136-145); UREA NITROGEN 10 mg/dL (7-18); eGFR NON AFRICAN AMERICAN > 90 mL/min (90-120)
[2019-04-22 06:25] LABS: POTASSIUM - SERUM 2.8 mmol/L (3.5-5.1)
[2019-04-22 18:08] VITALS: BP 120/69
[2019-04-22 18:19] VITALS: BP 102/68
--- NOTE | 2019-04-22 19:07 | MORECARE ---
CASE MANAGEMENT DISCHARGE SUMMARY PATIENT: LUZ JIMENEZ UNIT: [id number] ADM DATE: 04/20/19 AGE: 88 : 30 SEX: M ROOM/BED: D.2233 AUTHOR: MARE SOARES PHYSICIAN: REFERRING PHYSICIAN: ELIEZER KINGSTON MD DATE OF SERVICE: 04/22/19 Discharge Plan Patient Name: LUZ JIMENEZ [facility] [facility] 1930 Planned Disposition: Home with Home Health Anticipated Discharge Date: Discharge Date: Expected LOS: Initial Reviewer: [email or web address] Initial Review Date: 04/20/2019 Generated: 04/22/19 8:07 pm Patient Name: LUZ JIMENEZ Page 66446 at 1907 All edits/amendments must be made on the electronic document DICTATION DATE: 04/22/191905 DRAFTER CIVIL ENGINEERING: ZAFAR 04/22/191905 RPT#: [id number] DC DATE: STATUS: ADM IN [facility] [address] [place] [address] END OF REPORT
--- NOTE | 2019-04-22 19:13 | MORECARE ---
CASE MANAGEMENT DISCHARGE SUMMARY PATIENT: LUZ DESHPANDE UNIT: [id number] ADM DATE: 04/20/19 AGE: 88 : 30 SEX: M ROOM/BED: D.2233 AUTHOR: MARE SOARES PHYSICIAN: REFERRING PHYSICIAN: ELIEZER KINGSTON MD DATE OF SERVICE: 04/22/19 Discharge Plan Patient Name: LUZ DESHPANDE [facility] [facility] 1930 Planned Disposition: Home with Home Health Anticipated Discharge Date: Discharge Date: Expected LOS: Initial Reviewer: [email or web address] Initial Review Date: 04/20/2019 Generated: 04/22/19 8:13 pm DCPIA - Discharge Planning Initial Assessment Updated by [id number]: Erika Verduzco on 04/22/19 7:08 pm * Is the patient Alert and Oriented? Yes * How many steps to enter\exit or inside your home? 2 steps/ f * PCP DR Nakul Mann * [facility] [address] * Preadmission Environment Home with Family * ADLs Partial Dependent * Partial ADLs (Assistance needed) Medication Management * Equipment Cane CPAP Oxygen Walker * Other Equipment Says he is to have a nebulizer. Will need to verify [facility] is DME provider * List name and contact numbers for known caregivers / representatives who currently or will assist patient after discharge: Shama Deshpande -babar- [phone] * Verbal permission to speak to the caregivers and representatives has been obtained from the patient. Yes * Community resources currently utilized Home Health * Please name any agencies selected above. [facility] * Additional services required to return to the preadmission environment? No * Can the patient safely return to the preadmission environment? Yes * Has this patient been hospitalized within the prior 30 days at any hospital? Yes Last DP export: 04/22/19 6:07 p Patient Name: LUZ DESHPANDE Page 16082 at 1913 All edits/amendments must be made on the electronic document DICTATION DATE: 04/22/191912 TISSUE PACKER: ZAFAR 04/22/191912 RPT#: [id number] DC DATE: STATUS: ADM IN [facility] [address] [place] [address] END OF REPORT
[2019-04-22 21:07] VITALS: BP 137/84
[2019-04-23 01:08] VITALS: BP 129/56
--- NOTE | 2019-04-23 04:28 | NUR ---
PT COMPLAINS OF FEELING URGE TO VOID AND LEAKING AROUND GOODMAN CATHETER. ASSESSED TUBING FOR KINK. ENCOURaged pt to be turning often. tilted hob to to assist gravity. irrigated goodman. ONLY irrigated saline waS RETURNED. WILL CONTINUE TO MONITOR.
[2019-04-23 06:31] LABS: BASOPHILS 0.4 % (0-2); EOSINOPHILS 1.2 % (0-7); HEMATOCRIT 33.5 % (42.0-54.0); HEMOGLOBIN 11.2 g/dL (13.5-17.5); IMMATURE GRANULOCYTES 0.3 % (0-5); LYMPHOCYTES 24.2 % (15-50); MCH 29.4 pg (26.0-34.0); MCHC 33.4 g/dL (31.0-37.0); MCV 87.9 fL (80.0-100.0); MEAN PLATELET VOLUME 9.6 fL (7.4-10.4); MONOCYTES 11.2 % (2-11); NEUTROPHILS 62.7 % (40-80); PLATELET COUNT 174 10x3/uL (130-400); RBC 3.81 10x6/uL (4.20-6.10); RDW 15.9 % (11.5-14.5); WBC 10.2 10x3/uL (4.8-10.8)
[2019-04-23 06:49] LABS: CALC OSMOLALITY 279 mosm/kg (275-300); CALCIUM 7.8 mg/dL (8.5-10.1); CARBON DIOXIDE 23.4 mmol/L (21.0-32.0); CHLORIDE - SERUM 108 mmol/L (98-107); CREATININE - SERUM 0.9 mg/dL (0.6-1.3); GLUCOSE 96 mg/dL (74-106); POTASSIUM - SERUM 3.2 mmol/L (3.5-5.1); SODIUM 141 mmol/L (136-145); UREA NITROGEN 11 mg/dL (7-18); eGFR NON AFRICAN AMERICAN 84 mL/min (90-120)
[2019-04-23 06:50] LABS: MAGNESIUM - SERUM 1.9 mg/dL (1.8-2.4)
[2019-04-23 08:05] VITALS: BP 120/48
--- NOTE | 2019-04-23 11:38 | NUR ---
MEDICATION ADMINISTRATION WAS LATE DUE TO PT BEING OFF THE FLOOR FOR A PIPPIDA SCAN, AND ALSO BEING NPO PRIOR TO SCAN. ADMINISTERED ONCE RETURNED TO THE FLOOR
[2019-04-23 11:53] VITALS: BP 146/59
[2019-04-23 15:06] VITALS: BP 129/52
--- NOTE | 2019-04-23 15:25 | NUR ---
I have reviewed this patient and I concur with the Shift Assessment completed by the Licensed Practical Nurse today this shift.
--- NOTE | 2019-04-23 15:48 | NUR ---
I have reviewed this patient and I concur with the Shift Assessment completed by the Licensed Practical Nurse today this shift.
--- NOTE | 2019-04-23 16:34 | NUR ---
rehab prescreen: thank you for this eval, this pt has a low level function has only walked 4 ft one time with 40% assist. talked to case manger regarding this pt, we will monitor pt progress at this time. thank you once again. steve olson lpn clinical liasion
--- NOTE | 2019-04-23 19:02 | MORECARE ---
CASE MANAGEMENT DISCHARGE SUMMARY PATIENT: LUZ DESHPANDE UNIT: [id number] ADM DATE: 04/20/19 AGE: 88 : 30 SEX: M ROOM/BED: D.2233 AUTHOR: MARE SOARES PHYSICIAN: REFERRING PHYSICIAN: ELIEZER KINGSTON MD DATE OF SERVICE: 04/23/19 Discharge Plan Patient Name: LUZ DESHPANDE [facility] [facility] 1930 Planned Disposition: Home with Home Health Anticipated Discharge Date: Discharge Date: Expected LOS: Initial Reviewer: [email or web address] Initial Review Date: 04/20/2019 Generated: 04/23/19 8:02 pm DCPIA - Discharge Planning Initial Assessment Updated by [email or web address]: Erika Verduzco on 04/22/19 7:08 pm * Is the patient Alert and Oriented? Yes * How many steps to enter\exit or inside your home? 2 steps/ f * PCP DR Nakul Mann * [facility] [address] * Preadmission Environment Home with Family * ADLs Partial Dependent * Partial ADLs (Assistance needed) Medication Management * Equipment Cane CPAP Oxygen Walker * Other Equipment Says he is to have a nebulizer. Will need to verify [facility] is DME provider * List name and contact numbers for known caregivers / representatives who currently or will assist patient after discharge: Shama Deshpande -babar- [phone] * Verbal permission to speak to the caregivers and representatives has been obtained from the patient. Yes * Community resources currently utilized Home Health * Please name any agencies selected above. [facility] * Additional services required to return to the preadmission environment? No * Can the patient safely return to the preadmission environment? Yes * Has this patient been hospitalized within the prior 30 days at any hospital? Yes Last DP export: 04/22/19 6:13 p Patient Name: LUZ DESHPANDE Page 45566 at 1902 All edits/amendments must be made on the electronic document DICTATION DATE: 04/23/191901 HEALTH SUPPORT SPECIALIST: ZAFAR 04/23/191901 RPT#: [id number] DC DATE: STATUS: ADM IN [facility] [address] [place] [address] END OF REPORT
--- NOTE | 2019-04-23 19:27 | MORECARE ---
CASE MANAGEMENT DISCHARGE SUMMARY PATIENT: LUZ DESHPANDE UNIT: [id number] ADM DATE: 04/20/19 AGE: 88 : 30 SEX: M ROOM/BED: D.2233 AUTHOR: FANY,DOC PHYSICIAN: REFERRING PHYSICIAN: ELIEZER KINGSTON MD DATE OF SERVICE: 04/23/19 Discharge Plan Patient Name: LUZ DESHPANDE Facility: [facility]:[place] : 1930 Planned Disposition: Home with Home Health Anticipated Discharge Date: Discharge Date: Expected LOS: Initial Reviewer: [email or web address] Initial Review Date: 04/20/2019 Generated: 04/23/19 8:27 pm Comments DCP- Discharge Planning Updated by [email or web address]: Erika Verduzco on 04/23/19 6:[address] LATE ENTRY 04/22/19 CM MET WITH THE PATIENT AND HIS AT THE BEDSIDE.. THE PATIENT GAVE PERMISSION FOR CM TO SPEAK WITH HIS BEING PRESENT. CM EXPLAINED MY ROLE AND RECEIVD VERBAL CONSENT TO DISCUSS CURRENT AND ONGOING NEEDS WITH HIS SPOUSE, SHAMA, BEING PRESENT.. PATIENT HAS 2 STEPS W/ RAIL TO ENTER THE FRONT AND 4/5 STEPS AT BACK DOOR WHICH HAS A RAIL. HIS PLAN IS TO DISCHARGE BACK TO HOME W/ [facility]. PATIENT HAS HAD 5 ADMISSIONS WITH 10 DAYS TO 2 WEEKS BETWEEN HOSPITALIZATIONS. HIS ASSIST W/ MEDICATION MANGEMENT. PCP- [facility] [address] D[facility]- [facility]- CANE, WALKER, CPAP, OXYGEN PATIENT HAS BEEN DISCHARGED ON NEBULZED MEDS PREVIOUSLY. 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 CM ADVISED HE COULD GET HIS NEBULIZER AND NEB MEDICATION THRU [facility]. CM ALSO ADVISED SOME NEB MEDICATIONS CAN BE PAID OUT OF HIS MEDICARE B RATHER THAN HIS MEDICATION PLAN. CM WILL NEED TO DISCUSS W/ [facility] ON WEDNESDAY. CM RECVIEWED ALL DISCHARGE MED LISTS. THE PATIENT HAD MENTIONED HE HAD NOT RECEIVED HIS UPDRAFTS SINCE ADMISSION. CM DISCUSSED W / CAROL THE SPINDLE PLUMBER. SHE STATED SHE WOULD ORDER THEM. HIS MED LIST NEED TO BE REVIEWED BY MD. CM WILL FOLLOW TO ASSIST W/ DISCHARGE NEEDS AND FACILITATE HIS CARE W/ PROVIDER. DCPIA - Discharge Planning Initial Assessment Updated by [id number]: Erika Nobles on 04/22/19 7:08 pm * Is the patient Alert and Oriented? Yes * How many steps to enter\exit or inside your home? 2 steps/ f * PCP DR Nakul Mann * Pharmacy Changing to [facility] [address] * Preadmission Environment Home with Family * ADLs Partial Dependent * Partial ADLs (Assistance needed) Medication Management * Equipment Cane CPAP Oxygen Walker * Other Equipment Says he is to have a nebulizer. Will need to verify [facility] is DME provider * List name and contact numbers for known caregivers / representatives who currently or will assist patient after discharge: Shama Deshpande -- [phone] * Verbal permission to speak to the caregivers and representatives has been obtained from the patient. Yes * Community resources currently utilized Home Health * Please name any agencies selected above. [facility] * Additional services required to return to the preadmission environment? No * Can the patient safely return to the preadmission environment? Yes * Has this patient been hospitalized within the prior 30 days at any hospital? Yes Last DP export: 04/23/19 6:02 p Patient Name: LUZ DESHPANDE Page [id number] at 1927 All edits/amendments must be made on the electronic document DICTATION DATE: 04/23/191925 OFFICE COORDINATOR RECEPTIONIST: ZAFAR 04/23/191925 RPT#: [id number] DC DATE: STATUS: ADM [facility] [address] [place] [address] END OF REPORT
[2019-04-23 20:22] VITALS: BP 136/55
--- NOTE | 2019-04-23 22:00 | NUR ---
REPORTS HIS MEEK HAS BEEN LEAKING AROUND CATHETER AND HAS NOT BEEN CHANGED SINCE 0600. BLUE PADS AND LINENS UNDER PT ARE SOAKED. LINENS CHANGED, [facility]/ MEEK CARE PROVIDED. MEEK IRRIGATED PER ORDER. INFORMED PT TO NOTIFY IF SPASMS/LEAKING CONTINUES. WILL MONITOR CLOSELY
[2019-04-24 00:49] VITALS: BP 120/63
[2019-04-24 05:49] LABS: BASOPHILS 0.4 % (0-2); EOSINOPHILS 1.4 % (0-7); HEMATOCRIT 34.2 % (42.0-54.0); HEMOGLOBIN 11.6 g/dL (13.5-17.5); IMMATURE GRANULOCYTES 0.4 % (0-5); LYMPHOCYTES 24.9 % (15-50); MCH 29.8 pg (26.0-34.0); MCHC 33.9 g/dL (31.0-37.0); MCV 87.9 fL (80.0-100.0); MEAN PLATELET VOLUME 9.7 fL (7.4-10.4); MONOCYTES 10.9 % (2-11); PLATELET COUNT 172 10x3/uL (130-400); RBC 3.89 10x6/uL (4.20-6.10); RDW 16.1 % (11.5-14.5); WBC 11.4 10x3/uL (4.8-10.8)
[2019-04-24 05:54] LABS: CALC OSMOLALITY 281 mosm/kg (275-300); CARBON DIOXIDE 23.5 mmol/L (21.0-32.0); CHLORIDE - SERUM 108 mmol/L (98-107); GLUCOSE 97 mg/dL (74-106); POTASSIUM - SERUM 3.7 mmol/L (3.5-5.1); SODIUM 141 mmol/L (136-145); eGFR NON AFRICAN AMERICAN 75 mL/min (90-120)
[2019-04-24 06:00] LABS: UREA NITROGEN 14 mg/dL (7-18)
[2019-04-24 06:02] VITALS: BP 149/60
[2019-04-24 09:00] VITALS: BP 145/60
--- NOTE | 2019-04-24 10:31 | NUR ---
CONTACTED DR FLORES IN [facility] TO PT MEEK CATH NOT DRAINING APPROPRIATELY AFTER FAILED ATTEMPTS TO REPOSITION AND IGIGATE. INFORMED HIM THAT THE PT IS SCHEDULED FOR DISCHARGE TODAY BUT IS RETAINING URINE DUE TO IMPROPER FUNCTION OF THE CATHETER. WHEN THE CATHETER DOES DRAIN IT LEAKS AROUND THE CATHETER ITSELF SOILING THE BED. DR FLORES ORDERED TO REMOVE THE MEEK AND REPLACE WITH A CUDAE CATHETER DUE TO PT ENLARGED PROSTATE. AND THAT ON D/C PT WILL NEED TO GO HOME WITH MEEK IN PLACE. REMOVED MEEK, TIP INTACT, AFTER ASPIRATING 10CC OF SALINE FROM THE BULB. TOLERATED WELL. REPLACED WITH A 16F CUDAE CATHETER, PER STERILE PROCEDURE. TOLERATED WELL. AND DRAINING EFFECTIVELY. WILL CONTINUE TO MONITOR, TIL D/C.
--- NOTE | 2019-04-24 12:10 | MORECARE ---
CASE MANAGEMENT DISCHARGE SUMMARY PATIENT: LUZ DESHPANDE UNIT: [id number] ADM DATE: 04/20/19 AGE: 88 : 30 SEX: M ROOM/BED: D.2233 AUTHOR: FANY,DOC PHYSICIAN: REFERRING PHYSICIAN: ELIEZER KINGSTON MD DATE OF SERVICE: 04/24/19 Discharge Plan Patient Name: LUZ DESHPANDE Facility: [facility]:[place] : 1930 Planned Disposition: Home with Home Health Anticipated Discharge Date: Discharge Date: Expected LOS: Initial Reviewer: [email or web address] Initial Review Date: 04/20/2019 Generated: 04/24/19 1:09 pm Comments DCP- Discharge Planning Updated by [email or web address]: Doris Galaviz on 04/24/19 11:[address] WAS ASKED BY MD IF PATIENT WOULD BE ABLE TO DISCHARGE TO INPATIENT REHAB TODAY. I CALLED AND SPOKE WITH BLAISE IN REHAB AT EXT 1160, AND SHE STATED THAT LILIAM WAS ONCALL FOR REHAB INTAKE AND I WAS GIVEN HER PHONE NUMBER TO CALL HER. @ 1012 I CALLED AND LEFT HER A VOICEMAIL EXPLAINING WHAT MD WAS ASKING. I WILL WAIT FOR RETURN CALL. DCP- Discharge Planning Updated by [email or web address]: Erika Verduzco on 04/23/19 6:[address] LATE ENTRY 04/22/19 CM MET WITH THE PATIENT AND HIS AT THE BEDSIDE.. THE PATIENT GAVE PERMISSION FOR CM TO SPEAK WITH HIS BEING PRESENT. CM EXPLAINED MY ROLE AND RECEIVD VERBAL CONSENT TO DISCUSS CURRENT AND ONGOING NEEDS WITH HIS SPOUSE, SHAMA, BEING PRESENT.. PATIENT HAS 2 STEPS W/ RAIL TO ENTER THE FRONT AND 4/5 STEPS AT BACK DOOR WHICH HAS A RAIL. HIS PLAN IS TO DISCHARGE BACK TO HOME W/ [facility]. PATIENT HAS HAD 5 ADMISSIONS WITH 10 DAYS TO 2 WEEKS BETWEEN HOSPITALIZATIONS. HIS ASSIST W/ MEDICATION MANGEMENT. PCP- [facility] [address] DME- [facility]- CANE, WALKER, CPAP, OXYGEN PATIENT HAS BEEN DISCHARGED ON NEBULZED MEDS PREVIOUSLY. 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 CM ADVISED HE COULD GET HIS NEBULIZER AND NEB MEDICATION THRU [facility]. CM ALSO ADVISED SOME NEB MEDICATIONS CAN BE PAID OUT OF HIS MEDICARE B RATHER THAN HIS MEDICATION PLAN. CM WILL NEED TO DISCUSS W/ [facility] ON WEDNESDAY. CM RECVIEWED ALL DISCHARGE MED LISTS. THE PATIENT HAD MENTIONED HE HAD NOT RECEIVED HIS UPDRAFTS SINCE ADMISSION. CM DISCUSSED W / CAROL THE HYGIENE ASSISTANT. SHE STATED SHE WOULD ORDER THEM. HIS MED LIST NEED TO BE REVIEWED BY MD. CM WILL FOLLOW TO ASSIST W/ DISCHARGE NEEDS AND FACILITATE HIS CARE W/ PROVIDER. DCPIA - Discharge Planning Initial Assessment Updated by [id number]: Erika Verduzco on 04/22/19 7:08 pm * Is the patient Alert and Oriented? Yes * How many steps to enter\exit or inside your home? 2 steps/ f * PCP DR Nakul Mann * Pharmacy Changing to [facility] [address] * Preadmission Environment Home with Family * ADLs Partial Dependent * Partial ADLs (Assistance needed) Medication Management * Equipment Cane CPAP Oxygen Walker * Other Equipment Says he is to have a nebulizer. Will need to verify [facility] is DME provider * List name and contact numbers for known caregivers / representatives who currently or will assist patient after discharge: Shama Deshpande -- [phone] * Verbal permission to speak to the caregivers and representatives has been obtained from the patient. Yes * Community resources currently utilized Home Health * Please name any agencies selected above. [facility] * Additional services required to return to the preadmission environment? No * Can the patient safely return to the preadmission environment? Yes * Has this patient been hospitalized within the prior 30 days at any hospital? Yes Last DP export: 04/23/19 6:27 p Patient Name: LUZ DESHPANDE Page [id number] at 1210 All edits/amendments must be made on the electronic document DICTATION DATE: 04/24/19 120 NOXIOUS WEEDS AND PEST INSPECTOR: ZAFAR 04/24/19 120 RPT#: [id number] CT DATE: STATUS: ADM IN [facility] [address] [facility] [place] [address] END OF REPORT
--- NOTE | 2019-04-24 12:23 | MORECARE ---
CASE MANAGEMENT DISCHARGE SUMMARY PATIENT: LUZ DESHPANDE UNIT: [id number] ADM DATE: 04/20/19 AGE: 88 : 30 SEX: M ROOM/BED: D.2233 AUTHOR: FANYDOC PHYSICIAN: REFERRING PHYSICIAN: ELIEZER KINGSTON MD DATE OF SERVICE: 04/24/19 Discharge Plan Patient Name: LUZ DESHPANDE Facility: [facility]:[place] : 1930 Planned Disposition: Home with Home Health Anticipated Discharge Date: Discharge Date: Expected LOS: Initial Reviewer: [email or web address] Initial Review Date: 04/20/2019 Generated: 04/24/19 1:23 pm Comments DCP- Discharge Planning Updated by [id number]: Zahra Aguilar on 04/24/19 11:[address] Patient Name: LUZ DESHPANDE Encounter No: [id number] : 1930 Primary Insurance: MEDICARE A & B Anticipated DC Date: Planned Disposition: Home with Home Health External Planned Provider: : DCP follow-up note: Patient and family feel the patient is to weak to return home. He wants to go to rehab. CM discussed rehab options and want [facility] as first choice and [facility] as their 2nd choice. They want a rehab that will allow his to stay with him. JENNIFER signed by patient for [facility] and [facility] and placed in patient's chart. Copy of signed for also left with patient. Liliam with [facility] has been called and we are awaiting a return call. CM spoke to Nusrat [phone] with [facility] and faxed referral to her @ [phone]. Nusrat stated that his could stay with him at their rehab facility. Case management will follow and assist as needed. Zahra Aguilar DCP- Discharge Planning Updated by [email or web address]: Doris Galaviz on 04/24/19 11:[address] WAS ASKED BY MD IF PATIENT WOULD BE ABLE TO DISCHARGE TO INPATIENT REHAB TODAY. I CALLED AND SPOKE WITH BLAISE IN REHAB AT EXT 1160, AND SHE STATED THAT LILIAM WAS ONCALL FOR REHAB INTAKE AND I WAS GIVEN HER PHONE NUMBER TO CALL HER. @ 1012 I CALLED AND LEFT HER A VOICEMAIL EXPLAINING WHAT MD WAS ASKING. I WILL WAIT FOR RETURN CALL. DCP- Discharge Planning Updated by [id number]: Erika Verduzco on 04/23/19 6:[address] LATE ENTRY 04/22/19 CM MET WITH THE PATIENT AND HIS AT THE BEDSIDE.. THE PATIENT GAVE PERMISSION FOR CM TO SPEAK WITH HIS BEING PRESENT. CM EXPLAINED MY ROLE AND RECEIVD VERBAL CONSENT TO DISCUSS CURRENT AND ONGOING NEEDS WITH HIS SPOUSE, SHAMA, BEING PRESENT.. PATIENT HAS 2 STEPS W/ RAIL TO ENTER THE FRONT AND 4/5 STEPS AT BACK DOOR WHICH HAS A RAIL. HIS PLAN IS TO DISCHARGE BACK TO HOME W/ [facility]. PATIENT HAS HAD 5 ADMISSIONS WITH 10 DAYS TO 2 WEEKS BETWEEN HOSPITALIZATIONS. HIS ASSIST W/ MEDICATION MANGEMENT. PCP- DR [facility]- [facility] [address] DME- [facility]- CANE, WALKER, CPAP, OXYGEN PATIENT HAS BEEN DISCHARGED ON NEBULZED MEDS PREVIOUSLY. 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 CM ADVISED HE COULD GET HIS NEBULIZER AND NEB MEDICATION THRU [facility]. CM ALSO ADVISED SOME NEB MEDICATIONS CAN BE PAID OUT OF HIS MEDICARE B RATHER THAN HIS MEDICATION PLAN. CM WILL NEED TO DISCUSS W/ [facility] ON WEDNESDAY. CM RECVIEWED ALL DISCHARGE MED LISTS. THE PATIENT HAD MENTIONED HE HAD NOT RECEIVED HIS UPDRAFTS SINCE ADMISSION. CM DISCUSSED W / CAROL THE ELECTRICIAN OFFICE. SHE STATED SHE WOULD ORDER THEM. HIS MED LIST NEED TO BE REVIEWED BY MD. CM WILL FOLLOW TO ASSIST W/ DISCHARGE NEEDS AND FACILITATE HIS CARE W/ PROVIDER. DCPIA - Discharge Planning Initial Assessment Updated by [email or web address]: Erika Verduzco on 04/22/19 7:08 pm * Is the patient Alert and Oriented? Yes * How many steps to enter\exit or inside your home? 2 steps/ f * PCP DR Nakul [place] * Pharmacy Changing to [facility] [address] * Preadmission Environment Home with Family * ADLs Partial Dependent * Partial ADLs (Assistance needed) Medication Management * Equipment Cane CPAP Oxygen Walker * Other Equipment Says he is to have a nebulizer. Will need to verify [facility] is DME provider * List name and contact numbers for known caregivers / representatives who currently or will assist patient after discharge: Shama Deshpande -- [phone] * Verbal permission to speak to the caregivers and representatives has been obtained from the patient. Yes * Community resources currently utilized Home Health * Please name any agencies selected above. [facility] * Additional services required to return to the preadmission environment? No * Can the patient safely return to the preadmission environment? Yes * Has this patient been hospitalized within the prior 30 days at any hospital? Yes Last DP export: 04/24/19 11:10 a Patient Name: LUZ DESHPANDE Page 66796 at 1223 All edits/amendments must be made on the electronic document DICTATION DATE: 04/24/19 1223 MILK WAGON DRIVER: ZAFAR 04/24/19 1223 RPT#: [id number] DC DATE: STATUS: ADM IN [facility] [address] [place] [address] END OF REPORT
--- NOTE | 2019-04-24 12:30 | MORECARE ---
CASE MANAGEMENT DISCHARGE SUMMARY PATIENT: LUZ DESHPANDE UNIT: [id number] ADM DATE: 04/20/19 AGE: 88 : 30 SEX: M ROOM/BED: D.2233 AUTHOR: FANYDOC PHYSICIAN: REFERRING PHYSICIAN: ELIEZER KINGSTON MD DATE OF SERVICE: 04/24/19 Discharge Plan Patient Name: LUZ DESHPANDE Facility: [facility]:[place] : 1930 Planned Disposition: Home with Home Health Anticipated Discharge Date: Discharge Date: Expected LOS: Initial Reviewer: [email or web address] Initial Review Date: 04/20/2019 Generated: 04/24/19 1:30 pm Comments DCP- Discharge Planning Updated by [email or web address]: Zahra Aguilar on 04/24/19 11:[address] Patient Name: LUZ DESHPANDE Encounter No: [id number] : 1930 Primary Insurance: MEDICARE A & B Anticipated DC Date: Planned Disposition: Home with Home Health External Planned Provider: : DCP follow-up note: Patient and family feel the patient is to weak to return home. He wants to go to rehab. CM discussed rehab options and want [facility] as first choice and [facility] as their 2nd choice. They want a rehab that will allow his to stay with him. JENNIFER signed by patient for [facility] and [facility] and placed in patient's chart. Copy of signed for also left with patient. Liliam with [facility] has been called and we are awaiting a return call. CM spoke to Nusrat [phone] with [facility] and faxed referral to her @ [phone]. Nusrat stated that his could stay with him at their rehab facility. Case management will follow and assist as needed. Zahra Aguilar DCP- Discharge Planning Updated by [id number]: Doris Galaviz on 04/24/19 11:[address] WAS ASKED BY MD IF PATIENT WOULD BE ABLE TO DISCHARGE TO INPATIENT REHAB TODAY. I CALLED AND SPOKE WITH BLAISE IN REHAB AT EXT 1160, AND SHE STATED THAT LILIAM WAS ONCALL FOR REHAB INTAKE AND I WAS GIVEN HER PHONE NUMBER TO CALL HER. @ 1012 I CALLED AND LEFT HER A VOICEMAIL EXPLAINING WHAT MD WAS ASKING. I WILL WAIT FOR RETURN CALL. DCP- Discharge Planning Updated by [email or web address]: Erika Verduzco on 04/23/19 6:[address] LATE ENTRY 04/22/19 CM MET WITH THE PATIENT AND HIS AT THE BEDSIDE.. THE PATIENT GAVE PERMISSION FOR CM TO SPEAK WITH HIS BEING PRESENT. CM EXPLAINED MY ROLE AND RECEIVD VERBAL CONSENT TO DISCUSS CURRENT AND ONGOING NEEDS WITH HIS SPOUSE, SHAMA, BEING PRESENT.. PATIENT HAS 2 STEPS W/ RAIL TO ENTER THE FRONT AND 4/5 STEPS AT BACK DOOR WHICH HAS A RAIL. HIS PLAN IS TO DISCHARGE BACK TO HOME W/ [facility]. PATIENT HAS HAD 5 ADMISSIONS WITH 10 DAYS TO 2 WEEKS BETWEEN HOSPITALIZATIONS. HIS ASSIST W/ MEDICATION MANGEMENT. PCP- DR [facility]- [facility] [address] DME- [facility]- CANE, WALKER, CPAP, OXYGEN PATIENT HAS BEEN DISCHARGED ON NEBULZED MEDS PREVIOUSLY. 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 CM ADVISED HE COULD GET HIS NEBULIZER AND NEB MEDICATION THRU [facility]. CM ALSO ADVISED SOME NEB MEDICATIONS CAN BE PAID OUT OF HIS MEDICARE B RATHER THAN HIS MEDICATION PLAN. CM WILL NEED TO DISCUSS W/ [facility] ON WEDNESDAY. CM RECVIEWED ALL DISCHARGE MED LISTS. THE PATIENT HAD MENTIONED HE HAD NOT RECEIVED HIS UPDRAFTS SINCE ADMISSION. CM DISCUSSED W / CAROL THE FEEDER LOADER. SHE STATED SHE WOULD ORDER THEM. HIS MED LIST NEED TO BE REVIEWED BY MD. CM WILL FOLLOW TO ASSIST W/ DISCHARGE NEEDS AND FACILITATE HIS CARE W/ PROVIDER. DCPIA - Discharge Planning Initial Assessment Updated by [email or web address]: Erika Verduzco on 04/22/19 7:08 pm * Is the patient Alert and Oriented? Yes * How many steps to enter\exit or inside your home? 2 steps/ f * PCP DR Nakul [place] * Pharmacy Changing to [facility] [address] * Preadmission Environment Home with Family * ADLs Partial Dependent * Partial ADLs (Assistance needed) Medication Management * Equipment Cane CPAP Oxygen Walker * Other Equipment Says he is to have a nebulizer. Will need to verify [facility] is DME provider * List name and contact numbers for known caregivers / representatives who currently or will assist patient after discharge: Shama Deshpande -- [phone] * Verbal permission to speak to the caregivers and representatives has been obtained from the patient. Yes * Community resources currently utilized Home Health * Please name any agencies selected above. [facility] * Additional services required to return to the preadmission environment? No * Can the patient safely return to the preadmission environment? Yes * Has this patient been hospitalized within the prior 30 days at any hospital? Yes External Providers External Provider: [facility] Contact Date: Service Request Date: Service Type: Resolution: Reviewer: Comments: Last DP export: 04/24/19 11:23 a Patient Name: LUZ DESHPANDE Page 66763 at 1230 All edits/amendments must be made on the electronic document DICTATION DATE: 04/24/191228 RATE ANALYST: ZAFAR 04/24/191228 RPT#: [id number] DC DATE: STATUS: ADM IN [facility] [address] [place] [address] END OF REPORT
--- NOTE | 2019-04-24 13:33 | MORECARE ---
CASE MANAGEMENT DISCHARGE SUMMARY PATIENT: LUZ DESHPANDE UNIT: [id number] ADM DATE: 04/20/19 AGE: 88 : 30 SEX: M ROOM/BED: D.2233 AUTHOR: FANYDOC PHYSICIAN: REFERRING PHYSICIAN: ELIEZER KINGSTON MD DATE OF SERVICE: 04/24/19 Discharge Plan Patient Name: LUZ DESHPANDE Facility: [facility]:[place] : 1930 Planned Disposition: Home with Home Health Anticipated Discharge Date: Discharge Date: Expected LOS: Initial Reviewer: [email or web address] Initial Review Date: 04/20/2019 Generated: 04/24/19 2:32 pm Comments DCP- Discharge Planning Updated by [id number]: Zahra Aguilar on 04/24/19 12:[address] Patient Name: LUZ DESHPANDE Encounter No: [id number] : 1930 Primary Insurance: MEDICARE A & B Anticipated DC Date: Planned Disposition: Home with Home Health External Planned Provider: :[Ext Provider Name] DCP follow-up note: Nusrat with [facility] called and stated the patient was accepted to their rehab. CM has not received a return call from [facility] Rehab Screener at this time. Nusrat stated that the patients could stay with the patient in his room. CM notified the Patient and his who are both in agreement with the discharge plan to [facility] Inpatient [facility]hab. Case management will fax med requisition once completed by ELECTRONICS ENGINEERING TECHNICIAN. Nurse Report needs to be called to [phone]. CM will continue follow and assist as needed. Zahra Aguilar RN, [facility] DCP- Discharge Planning Updated by [id number]: Zahra Aguilar on 04/24/19 11:[address] Patient Name: LUZ DESHPANDE Encounter No: [id number] : 1930 Primary Insurance: MEDICARE A & B Anticipated DC Date: Planned Disposition: Home with Home Health External Planned Provider: : DCP follow-up note: Patient and family feel the patient is to weak to return home. He wants to go to rehab. CM discussed rehab options and want [facility] as first choice and [facility] as their 2nd choice. They want a rehab that will allow his to stay with him. JENNIFER signed by patient for [facility] and [facility] and placed in patient's chart. Copy of signed for also left with patient. Liliam with [facility] re[facility] has been called and we are awaiting a return call. CM spoke to Nusrat [phone] with [facility] and faxed referral to her @ [phone]. Nusrat stated that his could stay with him at their rehab facility. Case management will follow and assist as needed. Zahra Aguilar DCP- Discharge Planning Updated by [email or web address]: Doris Guillaume on 04/24/19 11:[address] WAS ASKED BY MD IF PATIENT WOULD BE ABLE TO DISCHARGE TO INPATIENT REHAB TODAY. I CALLED AND SPOKE WITH BLAISE IN REHAB AT EXT 1160, AND SHE STATED THAT LILIAM WAS ONCALL FOR REHAB INTAKE AND I WAS GIVEN HER PHONE NUMBER TO CALL HER. @ 1012 I CALLED AND LEFT HER A VOICEMAIL EXPLAINING WHAT MD WAS ASKING. I WILL WAIT FOR RETURN CALL. DCP- Discharge Planning Updated by [email or web address]: Erika Verduzco on 04/23/19 6:[address] LATE ENTRY 04/22/19 CM MET WITH THE PATIENT AND HIS AT THE BEDSIDE.. THE PATIENT GAVE PERMISSION FOR CM TO SPEAK WITH HIS BEING PRESENT. CM EXPLAINED MY ROLE AND RECEIVD VERBAL CONSENT TO DISCUSS CURRENT AND ONGOING NEEDS WITH HIS SPOUSE, SAMIR, BEING PRESENT.. PATIENT HAS 2 STEPS W/ RAIL TO ENTER THE FRONT AND 4/5 STEPS AT BACK DOOR WHICH HAS A RAIL. HIS PLAN IS TO DISCHARGE BACK TO HOME W/ [facility]. PATIENT HAS HAD 5 ADMISSIONS WITH 10 DAYS TO 2 WEEKS BETWEEN HOSPITALIZATIONS. HIS ASSIST W/ MEDICATION MANGEMENT. PCP- DR [facility]- [facility] [address] DME- [facility]- CANE, WALKER, CPAP, OXYGEN PATIENT HAS BEEN DISCHARGED ON NEBULZED MEDS PREVIOUSLY. 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 CM ADVISED HE COULD GET HIS NEBULIZER AND NEB MEDICATION THRU [facility]. CM ALSO ADVISED SOME NEB MEDICATIONS CAN BE PAID OUT OF HIS MEDICARE B RATHER THAN HIS MEDICATION PLAN. CM WILL NEED TO DISCUSS W/ [facility] ON WEDNESDAY. CM RECVIEWED ALL DISCHARGE MED LISTS. THE PATIENT HAD MENTIONED HE HAD NOT RECEIVED HIS UPDRAFTS SINCE ADMISSION. CM DISCUSSED W / CAROL THE NURSE TECH. SHE STATED SHE WOULD ORDER THEM. HIS MED LIST NEED TO BE REVIEWED BY . CM WILL FOLLOW TO ASSIST W/ DISCHARGE NEEDS AND FACILITATE HIS CARE W/ PROVIDER. DCPIA - Discharge Planning Initial Assessment Updated by [email or web address]: Erika Verduzco on 04/22/19 7:08 pm * Is the patient Alert and Oriented? Yes * How many steps to enter\exit or inside your home? 2 steps/ f * PCP DR Nakul Mann * Pharmacy Changing to [facility] [address] * Preadmission Environment Home with Family * ADLs Partial Dependent * Partial ADLs (Assistance needed) Medication Management * Equipment Cane CPAP Oxygen Walker * Other Equipment Says he is to have a nebulizer. Will need to verify [facility] is DME provider * List name and contact numbers for known caregivers / representatives who currently or will assist patient after discharge: Samir Deshpande -- [phone] * Verbal permission to speak to the caregivers and representatives has been obtained from the patient. Yes * Community resources currently utilized Home Health * Please name any agencies selected above. [facility] * Additional services required to return to the preadmission environment? No * Can the patient safely return to the preadmission environment? Yes * Has this patient been hospitalized within the prior 30 days at any hospital? Yes Last DP export: 04/24/19 11:30 a Patient Name: LUZ DESHPANDE Page 56086 at 1333 All edits/amendments must be made on the electronic document DICTATION DATE: 04/24/191331 DECORATING MACHINE TENDER: ZAFAR 04/24/19 1332 RPT#: [id number] DC DATE: STATUS: ADM IN [facility] [address] [place], [place] [address] END OF REPORT
[2019-04-24 14:03] VITALS: BP 137/57
[2019-04-24] MEDS ORDERED: LEVOFLOXAC500 MG/100 IV (14:10)
[2019-04-24] MEDS ORDERED: LOVENOX40 MG/0.4 SC (14:11)
--- NOTE | 2019-04-24 14:27 | NUR ---
PT D/C TO [facility] TODAY ON IV ANTIBIOTIC. PT HAS A MIDLINE CATH TO UPPER R ARM PLACED [facility] STAY. SPOKE WITH FISH PITCHER TO VERIFY THAT PT CAN D/C WITH LINE IN PLACE. DANA WALSH, STATED THAT YES HE COULD KEEP THE LINE. WILL D/C WITH BOTH MIDLINE CATH AND KATLYN MEEK TO REHAB
--- NOTE | 2019-04-24 15:20 | MORECARE ---
CASE MANAGEMENT DISCHARGE SUMMARY PATIENT: LUZ DESHPANDE UNIT: [id number] ADM DATE: 04/20/19 AGE: 88 : 30 SEX: M ROOM/BED: D.2233 AUTHOR: FANYDOC PHYSICIAN: REFERRING PHYSICIAN: ELIEZER KINGSTON MD DATE OF SERVICE: 04/24/19 Discharge Plan Patient Name: LUZ DESHPANDE Facility: [facility]:[place] : 1930 Planned Disposition: Home with Home Health Anticipated Discharge Date: Discharge Date: Expected LOS: Initial Reviewer: [email or web address] Initial Review Date: 04/20/2019 Generated: 04/24/19 4:20 pm Comments DCP- Discharge Planning Updated by [email or web address]: Zahra Aguilar on 04/24/19 2:[address] Patient Name: LUZ DESHPANDE Encounter No: [id number] : 1930 Primary Insurance: MEDICARE A & B Anticipated DC Date: Planned Disposition: [facility] DCP follow-up note: Patient and family in agreement with discharge plan. [facility]. [facility] to call with room number prior to patient being discharged from the Hospital. CM spoke to [facility]read who stated his room number is 105. Nurse report to be called to . CM faxed dc med list to [facility] as requested. Junito will call the floor when their physician signs the screen. Their physician is on her way to their facility. Zahra Aguilar RN, [facility] DCP- Discharge Planning Updated by [id number]: Zahra Aguilar on 04/24/19 12:[address] Patient Name: LUZ DESHPANDE Encounter No: [id number] : 1930 Primary Insurance: MEDICARE A & B Anticipated DC Date: Planned Disposition: Home with Home Health External Planned Provider: :[Ext Provider Name] DCP follow-up note: Nusrat with [facility] called and stated the patient was accepted to their rehab. MARLENY has not received a return call from Rehab Screener at this time. Nusrat stated that the patients could stay with the patient in his room. MARLENY notified the Patient and his who are both in agreement with the discharge plan to [facility] Re[facility]. Case management will fax med requisition once completed by WAREDRESSER. Nurse Report needs to be called to [phone]. CM will continue follow and assist as needed. Zahra Aguilar RN, [facility] DCP- Discharge Planning Updated by [email or web address]: Zahra Aguilar on 04/24/19 11:[address] Patient Name: LUZ DESHPANDE Encounter No: [id number] : 1930 Primary Insurance: MEDICARE A & B Anticipated DC Date: Planned Disposition: Home with Home Health External Planned Provider: : DCP follow-up note: Patient and family feel the patient is to weak to return home. He wants to go to rehab. CM discussed rehab options and want [facility] as first choice and [facility] as their 2nd choice. They want a rehab that will allow his to stay with him. JENNIFER signed by patient for [facility] and [facility] and placed in patient's chart. Copy of signed for also left with patient. Liliam with [facility] has been called and we are awaiting a return call. CM spoke to Nusrat [phone] with [facility] and faxed referral to her @ [phone]. Nusrat stated that his could stay with him at their rehab facility. Case management will follow and assist as needed. Zahra Aguilar DCP- Discharge Planning Updated by [id number]: Doris Galaviz on 04/24/19 11:[address] WAS ASKED BY MD IF PATIENT WOULD BE ABLE TO DISCHARGE TO INPATIENT REHAB TODAY. I CALLED AND SPOKE WITH BLAISE IN REHAB AT EXT 1160, AND SHE STATED THAT LILIAM WAS ONCALL FOR REHAB INTAKE AND I WAS GIVEN HER PHONE NUMBER TO CALL HER. @ 6330 I CALLED AND LEFT HER A VOICEMAIL EXPLAINING WHAT MD WAS ASKING. I WILL WAIT FOR RETURN CALL. DCP- Discharge Planning Updated by [email or web address]: Erika Verduzco on 04/23/19 6:[address] LATE ENTRY 04/22/19 CM MET WITH THE PATIENT AND HIS AT THE BEDSIDE.. THE PATIENT GAVE PERMISSION FOR CM TO SPEAK WITH HIS BEING PRESENT. CM EXPLAINED MY ROLE AND RECEIVD VERBAL CONSENT TO DISCUSS CURRENT AND ONGOING NEEDS WITH HIS SPOUSE, SAMIR, BEING PRESENT.. PATIENT HAS 2 STEPS W/ RAIL TO ENTER THE FRONT AND 4/5 STEPS AT BACK DOOR WHICH HAS A RAIL. HIS PLAN IS TO DISCHARGE BACK TO HOME W/ [facility]. PATIENT HAS HAD 5 ADMISSIONS WITH 10 DAYS TO 2 WEEKS BETWEEN HOSPITALIZATIONS. HIS ASSIST W/ MEDICATION MANGEMENT. PCP- [facility] [address] DME- [facility]- CANE, WALKER, CPAP, OXYGEN PATIENT HAS BEEN DISCHARGED ON NEBULZED MEDS PREVIOUSLY. THE SAYS THEY HAVE TO SUPPLIER MANAGER HIS NEBULIZER FROM [facility]. CM ADVISED HE COULD GET HIS NEBULIZER AND NEB MEDICATION THRU [facility]. CM ALSO ADVISED SOME NEB MEDICATIONS CAN BE PAID OUT OF HIS MEDICARE B RATHER THAN HIS MEDICATION PLAN. CM WILL NEED TO DISCUSS W/ [facility] ON WEDNESDAY. CM RECVIEWED ALL DISCHARGE MED LISTS. THE PATIENT HAD MENTIONED HE HAD NOT RECEIVED HIS UPDRAFTS SINCE ADMISSION. CM DISCUSSED W / CAROL THE AGRICULTURAL EQUIPMENT SALESPERSON. SHE STATED SHE WOULD ORDER THEM. HIS MED LIST NEED TO BE REVIEWED BY MD. CM WILL FOLLOW TO ASSIST W/ DISCHARGE NEEDS AND FACILITATE HIS CARE W/ PROVIDER. DCPIA - Discharge Planning Initial Assessment Updated by [id number]: Erika Verduzco on 04/22/19 7:08 pm * Is the patient Alert and Oriented? Yes * How many steps to enter\exit or inside your home? 2 steps/ f * PCP DR Richard Farragut * Pharmacy Changing to [email or web address] [address] * Preadmission Environment Home with Family * ADLs Partial Dependent * Partial ADLs (Assistance needed) Medication Management * Equipment Cane CPAP Oxygen Walker * Other Equipment Says he is to have a nebulizer. Will need to verify [facility] is DME provider * List name and contact numbers for known caregivers / representatives who currently or will assist patient after discharge: Samir Deshpande -- [phone] * Verbal permission to speak to the caregivers and representatives has been obtained from the patient. Yes * Community resources currently utilized Home Health * Please name any agencies selected above. [facility] * Additional services required to return to the preadmission environment? No * Can the patient safely return to the preadmission environment? Yes * Has this patient been hospitalized within the prior 30 days at any hospital? Yes Last DP export: 04/24/19 12:32 p Patient Name: LUZ DESHPANDE Page 10910 at 1520 All edits/amendments must be made on the electronic document DICTATION DATE: 04/24/191519 CHEF KITCHEN MANAGER: ZAFAR 04/24/191519 RPT#: [id number] DC DATE: STATUS: ADM IN [facility] [address] [facility] [place] [address] END OF REPORT
== END 2019-04-24 18:07 | DRG 689 ==
LOC: D.ER 13:44 → D.MS 16:05
PROVIDERS: Family Medicine; ADMIT Internal Medicine Nephrology; ATTEND Internal Medicine Nephrology
PROC: 05HY33Z Insertion of Infusion Device into Upper Vein, Percutaneous Approach (ICD-10-PCS; principal; 2019-04-21)
DX: N39.0 Urinary tract infection, site not specified (principal); K55.069 Acute infarction of intestine, part and extent unspecified; I50.32 Chronic diastolic (congestive) heart failure; N40.1 Benign prostatic hyperplasia with lower urinary tract symptoms; R33.8 Other retention of urine; I10 Essential (primary) hypertension; I48.91 Unspecified atrial fibrillation; I25.10 Atherosclerotic heart disease of native coronary artery without angina pectoris; E87.6 Hypokalemia

== ENCOUNTER 2019-07-28 23:48 | Observation (INO) | payer MEDICARE, BC ==
[~2019-07-28] VITALS: Ht 172.7 cm; Wt 92.7 kg
[~2019-07-28 23:48] MED LIST changes: +LEVOFLOXAC500 MG/100 IV; +LOVENOX40 MG/0.4 SC
[2019-07-29 00:05] VITALS: BP 137/82
[2019-07-29 00:19] LABS: HEMATOCRIT 36.7 % (42.0-54.0); HEMOGLOBIN 12.8 g/dL (13.5-17.5); LYMPHOCYTES 30.1 % (15-50); MCH 31.4 pg (26.0-34.0); MCHC 34.9 g/dL (31.0-37.0); MEAN PLATELET VOLUME 8.6 fL (7.4-10.4); RBC 4.08 10x6/uL (4.20-6.10); RDW 13.7 % (11.5-14.5); WBC 10.3 10x3/uL (4.8-10.8)
[2019-07-29 00:20] LABS: PLATELET COUNT 231 10x3/uL (130-400)
[2019-07-29 00:35] LABS: APTT 29.4 SECONDS (22.8-39.4); INR 1.04 (0.85-1.17); PROTIME 13.1 SECONDS (11.6-15.0)
[2019-07-29 00:37] LABS: ALBUMIN 3.4 g/dL (3.4-5.0); ALKALINE PHOSPHATASE 82 U/L (46-116); ALT (SGPT) 31 U/L (10-68); BILIRUBIN - TOTAL 0.44 mg/dL (0.2-1.3); CALC OSMOLALITY 286 mosm/kg (275-300); CALCIUM 8.6 mg/dL (8.5-10.1); CARBON DIOXIDE 26.4 mmol/L (21.0-32.0); CHLORIDE - SERUM 105 mmol/L (98-107); GLUCOSE 142 mg/dL (74-106); POTASSIUM - SERUM 4.4 mmol/L (3.5-5.1); PROTEIN - SERUM 6.9 g/dL (6.4-8.2); SODIUM 141 mmol/L (136-145); UREA NITROGEN 25 mg/dL (7-18); eGFR NON AFRICAN AMERICAN 75 mL/min (90-120)
[2019-07-29 00:49] LABS: CKMB 1.1 U/L (0.0-3.6); CREATINE KINASE 55 UL (21-232); MAGNESIUM - SERUM 2.3 mg/dL (1.8-2.4)
[2019-07-29 00:50] LABS: TROPONIN-I < 0.017 ng/mL (0.000-0.060)
[2019-07-29 02:12] VITALS: BP 130/72
[2019-07-29 02:17] VITALS: BP 140/68
--- NOTE | 2019-07-29 03:26 | NUR ---
RECIEVED REPORT FROM JOHNTAHAN WALSH.
[2019-07-29 03:59] VITALS: BP 132/56; BMI 31.0
--- NOTE | 2019-07-29 07:00 | NUR ---
RECEIVED REPORT. ASSUMED CARE OF PATIENT. CALL LIGHT WITHIN REACH. NO DISTRESS. PATIENT IS NPO UNTIL SEEN BY CARDIOLOGY THIS AM. NO FAMILY AT BEDSIDE.
--- NOTE | 2019-07-29 07:19 | NUR ---
ADMISSION ASSESSMENT COMPLETED BY THROUGH FREIGHT ENGINEERJILLIAN BERGERON. JILLIAN.
[2019-07-29 09:02] VITALS: BP 134/53
--- NOTE | 2019-07-29 10:26 | NUR ---
SPOKE WITH ARABELLA, RECIEVED ORDERS TO FOLLOW 'S RECOMMENDATION FOR MED CHANGES IN HIS CONSULTATION NOTE.
--- NOTE | 2019-07-29 10:45 | NUR ---
MEDICATIONS INITIATED AT THIS TIME. NO DISTRESS.
[2019-07-29 11:30] VITALS: BP 143/61
[2019-07-29 12:49] VITALS: Ht 172.7 cm; Wt 92.7 kg
[2019-07-29] MEDS ORDERED: LOPRESSOR25 MG PO (12:51)
--- NOTE | 2019-07-29 13:45 | NUR ---
20 GAUGE IV REMOVED FROM LEFT FOREARM. CATHETER TIP INTACT. NO BLEEDING FROM SITE. 2X2 GAUZE APPLIED AND SECURED WITH BANDAID. TELEMETRY REMOVED. PATIENT IS DISCHARGING TO HOME WITH HIS .
--- NOTE | 2019-07-29 14:00 | NUR ---
DISCHARGE INSTRUCTIONS PROVIDED TO PATIENT AND HIS . PATIENT STATES HIS VISION IS FINE AND WILL NOT HURT FOR HIM TO DRIVE. EXPLAINED IT WAS NOT THE VISION THAT WE ASK HIM NOT TO DRIVE, IT IS HIS CARDIAC CONDITION AND WE DON'T WANT HIM TO HAVE AN ACCIDENT WHILE DRIVING AND TO PLEASE MAKE SURE WITH HIS PCP THAT IT IS OKAY FOR HIM TO DRIVE. PATIENT STATES HE HEARS WHAT IM SAYING BUT HE IS GOING TO DRIVE IF HE WANTS TO. PATIENTS AT BEDSIDE AND STATES HE ONLY DRIVES ON THE [place]IRT ROADS FROM [place] TO [place]. HE STAYS OFF THE HIGHWAYS BECAUSE HE DOESN'T WANT TO HURT ANYONE. PATIENT EDUCATED AND ASKED TO PLEASE SPEAK WITH HIS PCP PRIOR TO DECIDING TO DRIVE ALONE.
--- NOTE | 2019-07-29 14:12 | NUR ---
PATIENT LEFT UNIT VIA WHEELCHAIR WITH ALL PERSONAL BELONGINGS. PATIENT DISCHARGED TO HOME WITH HIS . PATIENT IN NO DISTRESS UPON LEAVING UNIT. PATIENT HAD NO COMPLAINTS UPON LEAVING UNIT.
== END 2019-07-29 14:15 | disposition home or self-care (01) ==
LOC: D.ER 23:48 → D.M2 07-29 02:40 → OBSVTIME 07-29 02:40 → D.M2 07-29 14:15
PROVIDERS: Family Medicine; ADMIT Internal Medicine Nephrology; ATTEND Internal Medicine Nephrology
DX: I48.91 Unspecified atrial fibrillation (principal); I11.0 Hypertensive heart disease with heart failure; I50.9 Heart failure, unspecified; D64.9 Anemia, unspecified; N17.9 Acute kidney failure, unspecified; I25.10 Atherosclerotic heart disease of native coronary artery without angina pectoris

== ENCOUNTER 2019-10-01 14:38 | Inpatient (IN) | payer MEDICARE, BC ==
[~2019-10-01] VITALS: Ht 172.7 cm; Wt 71.8 kg
--- NOTE | ~2019-10-01 | HEMODYNAMI ---
PATIENT:LUZ JIMENEZ MEDICAL RECORD: [id number] : 30 [id number] ADMISSION DATE: 10/01/19 Generatedon:10/02/201915:54 Patient name: LUZ JIMENEZ Patient #: [id number] : 1930 Date of study: 10/02/2019 Page: Of Hemodynamic Procedure Report Patient Data Patient Demographics Procedure consent was obtained First Name: LUZ Gender: Male Last Name: TONY : 1930 Middle Initial: C Age: 89 year(s) Patient #: [id number] Race: SSN: [id number] Additional ID: [id number] Contact details Address: [address] [place] [address] circle State: [place] City: [place] Zip code: [address] Past Medical History Allergies: No known allergies Admission Admission Data Admission Date: 10/01/2019 Admission Time: 16:22 Arrival Date: 10/02/2019 Arrival Time: 0:00 Admit Source: Other Insurance Payor: Medicare, Room #: D.2138 Private health insurance Height (in.): 67.72 BSA: 1.85 (m2) Height (cm.): 172 BMI: 24.34 (kg/m2) Weight (lbs.): 158.73 Weight (kg.): 72 Lab Results Lab Result Date: 10/02/2019 Lab Result Time: 0:00 Biochemistry Name Units Result Min Max BUN mg/dl 23 --(----)-* 7 18 Creatinine mg/dl 1.1 --(--*-)-- 0.6 1.3 eGFR ml/min 67.16436 *-(----)-- 90 120 NONAFRICAN CBC Name Units Result Min Max Hemoglobin g/dl 13.6 --(*---)-- 13.5 17.5 Procedure Procedure Types Cath Procedure Diagnostic Procedure LHC LHC w/Coronaries w/Grafts Sedation Charges Moderate Sedation up to 15 minutes PCI Procedure AMI/SVG/CHEMICAL LABORATORY SCIENTIST PTCA or Stent SVG-BMS/AZUCENA Initial Procedure Description Procedure Date Procedure Date: 10/02/2019 Procedure Start Time: 15:38 Procedure End Time: 15:52 Procedure Staff Name Function Rich Wu MD Performing Physician Darlene Bennett RT Monitor Marly Gillespie RN Nurse Ashleigh Hyde RT Scrub Indication Chest discomfort Procedure Data Cath Procedure Fluoroscopy Diagnostic fluoroscopy Total fluoroscopy Time: 3.7 time: 3.7 min min Diagnostic fluoroscopy Total fluoroscopy dose: 796 dose: 796 mGy mGy Contrast Material Contrast Material Type Amount (ml) Isovue 300 85 Entry Location Entry Primary Successful Side Size Upsize Upsize Entry Closure Succes sful Closure Location (Fr) 1 (Fr) 2 (Fr) Remarks Device Remarks Femoral Right 6 Fr Exoseal artery Short Estimated blood loss: 10 ml Diagnostic catheters Device Type Used For End Catheter Placement MULTIPACK Pigtail 5 Fr Ventriculography catheter MULTIPACK JL 4.0 5Fr Procedure catheter MULTIPACK 3DRC 5Fr Procedure catheter DIAGNOSTIC AR MOD 5Fr Procedure Catheter ([id number]) Procedure Complications No complications Procedure Medications Medication Administration Route Dosage 0.9% NaCl I.V. 100 ml/hr Oxygen etCO2 Nasal cannula 2 l/min Lidocaine 2% added to field 20 Heparin Flush Bag added to field 2 bags (1000units/500ml NS) Versed I.V. 1 mg Fentanyl I.V. 25 mcg Heparin Bolus I.V. 4000 units Integrilin (Bolus I.V. 6.8 ml 2mg/ml) Integrilin (Bolus wasted 3.2 ml 2mg/ml) Integrilin Drip I.V. drip 6 ml/hr (75mg/100ml) Hemodynamics Rest BSA: 1.85 (m2) HGB: 13.6 (g/dl) O2 Consumption: Estimated: 228.32 (ml/min) O2 Co nsumption indexed: Estimated:123.42 (ml/min/m) Heart Rate: 98 (bpm) Snapshots Pre Cath Intra NCS Post Cath Vital Signs Time Heart Resp SPO2 etCO2 NIBP (mmHg) Rhythm Pain Sedation Rate (ipm) (%) (mmHg) Status Level (bpm) 15:24:16 63 31 80 11.2 132/72(110) Paced 0 (11) 10(A) , No pain 15:28:28 63 24 81 20.2 137/69(118) Paced 0 (11) 10(A) , No pain 15:32:40 61 20 85 29.2 125/73(104) Paced 0 (11) 10(A) , No pain 15:36:48 70 17 88 3 127/70(108) Paced 0 (11) 10(A) , No pain 15:40:58 60 22 90 21.7 126/66(106) Paced 0 (11) 9(A) , No pain 15:45:08 60 16 89 28.4 122/68(103) Paced 0 (11) 9(A) , No pain 15:49:15 60 19 88 0.7 123/69(104) Paced 0 (11) 10(A) , No pain Medications Time Medication Route Dose Verified Delivered Reason Notes Effectiveness by by 15:23:14 0.9% NaCl I.V. 100 Rich Marly used for ml/hr Bryce Gillespie quarter section ironer 15:23:20 Oxygen etCO2 2 Rich Marly used for Nasal l/min Bryce Gillespie procedure cannula RN 15:23:25 Lidocaine 2% added 20ml Rich Villanueva for local to vial Bryce Wu MD anesthetic field 15:23:31 Heparin Flush added 2 Rich Rich used for Bag to bags Bryce Wu MD procedure (1000units/500ml field NS) 15:37:00 Versed I.V. 1 mg Rich Marly for sedation Bryce Gillespie RN 15:37:12 Fentanyl I.V. 25 Rich Marly for sedation mcg Bryce Gillespie RN 15:46:05 Heparin Bolus I.V. 4000 Rich Marly for verif ied units Bryce Gillespie anticoagulation with Dr. JILLIAN Wu 15:47:21 Integrilin I.V. 6.8 Rich Marly for (Bolus 2mg/ml) ml Bryce Gillespie antiplatelet RN therapy 15:49:35 Integrilin wasted 3.2 Rich Marly for (Bolus 2mg/ml) ml Bryce Gillespie antiplatelet RN therapy 15:49:47 Integrilin Drip I.V. 6 Rich Marly for (75mg/100ml) drip ml/hr Bryce Gillespie antiplatelet RN therapy Procedure Log Time Note 15:10:01 Patient Height : 67.72 inches 15:10:04 Patient Weight : 158.73 lbs 15:10:15 Admit Source: Other 15:10:17 Insurance Payor : Private health insurance, Medicare 15:11:16 Arrival Date: 10/02/2019 12:00:00 AM 15:12:15 Lab Result : Hemoglobin 13.6 g/dl 15:12:15 Lab Result : eGFR NONAFRICAN 67.55368 ml/min 15:12:15 Lab Result : BUN 23 mg/dl 15:12:15 Lab Result : Creatinine 1.1 mg/dl 15:13:30 Indication : Chest discomfort 15:16:25 ACC Patient presents with Stable Angina CCS Anginal Class 2--Slight limitation of ordinary activity. 15:16:30 Procedure Status Urgent Heart Cath (IP). 15:16:33 Marly Gillespie RN sent for patient. Start room use. 15:16:40 Time tracking: Regular hours (M-F 7:00 - 5:00) 15:16:44 Plan of Care:Hemodynamics will remain stable., Cardiac rhythm will remain stable., Comfort level will be maintained., Respiratory function will remain adequate., Patient/ family verbilizes understanding of procedure., Procedure tolerated without complication., Recovers from procedure without complications.. 15:16:49 Patient received from Med II to [facility] 2 Alert and oriented. Tansferred to table in Supine position. 15:16:55 Signed procedure consent form obtained from patient. 15:16:56 Warm blankets applied, and boby hugger turned on for patient comfort. 15:16:57 Correct patient and procedure confirmed by team. 15:16:58 ECG and BP/O2 sat monitors applied to patient. 15:17:07 H&P Date Dictated: 10/01/2019 Within 30 days and on chart., H&P Addendum completed by physician on day of procedure. (MUST COMPLETE FOR ALL OUTPATIENTS). 15:17:08 Pre-procedure instructions explained to patient. 15:17:14 Family in patients room. 15:17:16 Patient NPO since Midnight. 15:17:21 Patient allergic to No known allergies 15:17:24 Is the patient allergic to Iodine/contrast media? No. 15:17:27 Was the patient premedicated? Yes 15:23:03 Vital chart was started 15:23:14 0.9% NaCl 100 ml/hr I.V. was administered by Marly Gillespie RN; used for procedure; Verbal order read back and verified. 15:23:20 Oxygen 2 l/min etCO2 Nasal cannula was administered by Marly Gillespie RN; used for procedure; Verbal order read back and verified. 15:23:25 Lidocaine 2% 20ml vial added to field was administered by Rich Wu MD; for local anesthetic; Verbal order read back and verified. 15:23:31 Heparin Flush Bag (1000units/500ml NS) 2 bags added to field was administered by Rich Wu MD; used for procedure; Verbal order read back and verified. 15:25:37 Is patient on blood thinner?Yes 15:25:40 ACC The patient was administered the following blood thiners within the last 24 hours: ACCLovenox 15:25:46 Patient diabetic? No. 15:25:52 Snore? Yes 15:25:53 Sleep apnea? Yes 15:25:57 Dentures? Yes ? 15:26:04 Patient pain scale 0/10 ?. 15:26:09 IV patent on arrival in left forearm with 0.9% NaCl at [facility]. 15:26:15 Lab results completed and on chart. 15:26:22 Risk of Mortality: .6 15:26:25 Risk of blood transfusion: 1.7 15:26:31 Risk of EZ: 12.1 15:26:35 Right groin area was prepped with chlora-prep and draped in sterile fashion 15::36 Alarms reviewed by R. N. 15:26:37 Sharps counted by scrub and verified by R.N. 15:26:38 Physician paged 15:31:34 Baseline sample Acquired. 15:31:36 Full Disclosure recording started 15:31:52 Use device set Femoral Dx 15:31:53 ACIST Syringe (51055) opened to sterile field. 15:31:54 Bag Decanter () opened to sterile field. 15:31:54 Medline Cath Pack ([id number]) opened to sterile field. 15:31:56 ACIST Hand Control (03431) opened to sterile field. 15:31:56 ACIST Manifold (28342) opened to sterile field. 15:31:57 DIAGNOSTIC Multipack 5Fr catheter set ([id number]) opened to sterile field. 15:32:00 Tegaderm 4 x 4 (1626W) opened to sterile field. 15:32:03 SHEATH 5FR [place] (SNC003) opened to sterile field. 15:32:03 EMERALD Guide Wire (329-345) opened to sterile field. 15:33:04 Physician arrived 15:33:04 --------ALL STOP TIME OUT------ 15:33:07 Final Timeout: patient, procedure, and site verified with staff and physician. All members of the team are in agreement. 15:33:09 Right groin site verified by team. 15:33:14 Fire Safety Assessment: A--An alcohol-based skin anteseptic being used preoperatively., C--Open oxygen or nitrous oxide is being used., D--An ESU, laser, or fiber-optic light is being used. 15:33:17 Physical assessment completed. ASA score P 3 - A patient with severe systemic disease as per Rich Wu MD. 15:36:57 Pt arrived to w/ SpO2 80 on RA. Per Med II nurse, Myla, pt could be transported w/out O2 to . SpO2 80% upon arrival. NRB applied @ 15L. made aware of sats. Will continue to monitor. 15:37:00 Versed 1 mg I.V. was administered by Marly Gillespie RN; for sedation; Verbal order read back and verified. 15:37:12 Fentanyl 25 mcg I.V. was administered by Marly Gillespie RN; for sedation; Verbal order read back and verified. 15:37:57 2) 60-89 Mildly reduced kidney function, and other findings (as for stage 1) point to kidney disease. 15:38:00 Maximum allowable contrast dose (3.7 X eGFR X 0.75)169 ml. 15:38:04 Sedation plan: IV Moderate Sedation Medication:Versed, Fentanyl 15:38:07 Procedure started. 15:38:11 Local anesthetic to right femoral artery with Lidocaine 2% by Rich Wu MD.INITIAL ACCESS ONLY 15:38:55 A 6 Fr Short sheath was inserted into the Right Femoral artery 15:39:11 SHEATH 6FR [place] (VUV355) opened to sterile field. 15:39:24 A MULTIPACK Pigtail 5 Fr catheter was advanced over the wire and used for Ventriculography. 15:39:29 EF : 30 % 15:39:31 Catheter removed. 15:39:38 A MULTIPACK JL 4.0 5Fr catheter was advanced over the wire and used for Procedure. 15:39:44 LCA angiography performed. 15:40:12 Catheter removed. 15:40:20 A MULTIPACK 3DRC 5Fr catheter was advanced over the wire and used for Procedure. 15:40:28 XAVIER to LAD angiography performed. 15:41:42 RCA angiography performed. 15:41:47 Catheter removed. 15:41:54 A DIAGNOSTIC AR MOD 5Fr Catheter ([id number]) was advanced over the wire and used for Procedure. 15:42:56 SVG to Circ angiography performed. 15:43:39 SVG to Diag angiography performed. 15:44:11 SVG to RCA angiography performed. 15:44:13 Catheter removed. 15:45:18 CHOICE PT Extra Support 182cm wire ([id number]) opened to sterile field. 15:45:19 INFLATOR Merit BasixCompak (LY7333) opened to sterile field. 15:45:20 GUIDE 6FR AR 1.0 catheter ([id number]) opened to sterile field. 15:45:50 Pre PCI Site: Vein Graft pCirc has 90% stenosis. 15:45:58 6 Fr AR1 guide catheter was inserted over the wire 15:46:05 Heparin Bolus 4000 units I.V. was administered by Marly Gillespie RN; for anticoagulation; verified with Dr. Wu Verbal order read back and verified. 15:46:41 choice wire advanced. 15:46:44 Wire advanced across lesion. 15:47:21 Integrilin (Bolus 2mg/ml) 6.8 ml I.V. was administered by Marly Gillespie RN; for antiplatelet therapy; Verbal order read back and verified. 15:47:44 Place stent Inflation Number: 1 A COBRA RX 3.0 X 08 Stent was prepped and advanced across the Aorta Left -> Prox CX 90. The stent was deployed at 15 VARUN for 0:00 (min:sec) . 15:47:59 EXOSEAL 6Fr (EX600) opened to sterile field. 15:48:08 ACT drawn and resulted at 247 seconds. (normal therapeutic range 180-240 seconds). 15:48:10 Wire removed. 15:48:11 Guide catheter removed. 15:48:24 Sheath removed intact; hemostasis achieved with Exoseal to the Right Femoral artery. 15:48:27 Procedure ended.(Physican Out) 15:49:35 Integrilin (Bolus 2mg/ml) 3.2 ml wasted was administered by Marly Gillespie RN; for antiplatelet therapy; Verbal order read back and verified. 15:49:47 Integrilin Drip (75mg/100ml) 6 ml/hr I.V. drip was administered by Marly Gillespie RN; for antiplatelet therapy; Verbal order read back and verified. 15:49:49 Fluoroscopy time 03.70 minutes. 15:49:52 Flurop Dose total: 796 15:49:52 Fluoroscopy dose: 796 mGy 15:49:58 Dose Area Product 41115 mGy/cm. 15:50:14 Contrast amount:Isovue 300 85ml. 15:50:16 Maximum allowable dose exceeded? No. 15:50:17 Sharps counted by scrub and verified by R.N. 15:50:19 Insertion/operative site no bleeding no hematoma. 15:50:27 Post right femoral artery:stable 15:50:31 Post Procedure Pulses reassessed and unchanged 15:50:37 Post-procedure physical assessment completed. ASA score P 3 - A patient with severe systemic disease as per Rich Wu MD. 15:50:39 Post procedure rhythm: unchanged. 15:50:46 Estimated blood loss: 10 ml 15:50:49 Post procedure instruction explained to patient.Patient verbalizes understanding. 15:51:17 Procedure type changed to Cath procedure, Diagnostic procedure, LHC, LHC w/Coronaries w/Grafts, Sedation Charges, Moderate Sedation up to 15 minutes, PCI procedure, AMI/SVG/CHEMICAL LABORATORY SCIENTIST PTCA or Stent, SVG-BMS/AZUCENA Initial 15:51:19 Procedure and supply charges have been captured, reviewed, submitted and are correct. 15:51:46 Procedure Complication : No complications 15:51:49 Vital chart was stopped 15:51:52 [facility] Findings: MVD- PCI performed (see procedure note) 15:51:54 Operative report dictated upon procedure completion. 15:51:55 See physician's report for complete and final results. 15:52:00 Report given to Med II. 15:52:05 Patient transfered to [facility] with Bed. 15:52:09 Procedure ended. 15:52:09 Full Disclosure recording stopped 15:52:20 ACC-PCI Only Patient was given prescriptions, or instructed by Rich Wu MD to start/continue the following medications upon discharge: Plavix 15:52:22 End room use (Document Last) Intervention Summary Intervention Notes Time ActionType Lesion and Equipment Action# Pressure Duration Attributes Used 15:47:44 Place stent Aorta Left COBRA RX 1 15 00:00 -> Prox CX 3.0 X 08 Stent Device Usage Item Name Manufacture Quantity Catalog Number Hospital Part Current Minimal Lot# / Charge Number Stock Stock Serial# Code ACIST Syringe Acist 1 14182 695491 286295 460423 20 (32786) Medical Systems Inc Bag Decanter Microtek 1 2001S 140140 99187 907027 5 (2001S) Medical Inc. Medline Cath Medline 1 [id number] 873623 56227 423535 5 Pack ([id number]) ACIST Hand Acist 1 66671 396416 588618 307135 5 Control Medical (97282) Systems Inc ACIST Manifold Acist 1 36486 379830 754600 606952 5 (17543) Medical Systems Inc DIAGNOSTIC Cardinal 1 GD1369 900765 42462 269186 30 Multipack 5Fr Health catheter set (YZ9452) Tegaderm 4 x 4 3M 1 1626W 451910 162620 740937 5 (1626W) SHEATH 5FR Terumo 1 HHI188 730412 149556 703428 5 [place] (URC458) EMERALD Guide Cardinal 1 502-455 115712 937363 722890 5 Wire (502-455) Health SHEATH 6FR Terumo 1 SGU919 762914 660152 628812 40 [place] (EQR155) MULTIPACK Cardinal 1 234624 5 Pigtail 5 Fr Health catheter MULTIPACK JL Cardinal 1 057027 5 4.0 5Fr Health catheter MULTIPACK 3DRC Cardinal 1 206957 5 5Fr catheter Health DIAGNOSTIC AR Cardinal 1 [id number] 913050 765795 809447 15 MOD 5Fr Health Catheter (395645U) CHOICE PT [place] 1 [id number] 120874 496422 853381 5 Extra Support Scientific 182cm wire ([id number]) INFLATOR Merit Merit 1 HQ8475 839131 030609 304133 15 [facility] (PX8093) GUIDE 6FR AR Medtronic 1 [id number] 041867 19649 929012 1 1.0 catheter (CY9MS80) COBRA RX 3.0 X Celonova 1 214757 [id number] 0859884 7 [id number] 08 stent Biosciences () EXOSEAL 6Fr Cardinal 1 EX600 439569 824307 926975 10 (EX600) Health Signature Audit [place] Stage Time Signature Unsigned Intra-Procedure 10/02/2019 Darlene Bennett 3:52:58 PM RT(R) Intra-Procedure 10/02/2019 Marly Gillespie 3:53:29 PM RN Intra-Procedure 10/02/2019 Rich Wu 3:54:11 PM Signatures Performing Physician : Signature : Rich Wu MD Date : Time : Monitor : Darlene Bennett Signature : RT Date : Time : Nurse : Marly Gillespie RN Signature : Date : Time : [facility] [address] [place], [place] [address]
[~2019-10-01 14:38] MED LIST changes: +LOPRESSOR25 MG PO
[2019-10-01] MEDS ORDERED: XANAX0.25 MG PO (14:47)
[2019-10-01] MEDS ORDERED: LOPRESSOR25 MG PO (14:48)
[2019-10-01] MEDS ORDERED: CARDIZEM CD180 MG PO (14:48)
[2019-10-01] MEDS ORDERED: FISH OIL 1,0001 CA1 PO (14:48)
[2019-10-01] MEDS ORDERED: CENTRUM COMPLE1 EACH PO (14:49)
[2019-10-01 15:02] LABS: BASOPHILS 0.4 % (0-2); EOSINOPHILS 2.7 % (0-7); HEMATOCRIT 41.8 % (42.0-54.0); HEMOGLOBIN 13.6 g/dL (13.5-17.5); IMMATURE GRANULOCYTES 0.2 % (0-5); LYMPHOCYTES 19.4 % (15-50); MCH 30.8 pg (26.0-34.0); MCHC 32.5 g/dL (31.0-37.0); MCV 94.8 fL (80.0-100.0); MEAN PLATELET VOLUME 9.6 fL (7.4-10.4); MONOCYTES 10.8 % (2-11); NEUTROPHILS 66.5 % (40-80); PLATELET COUNT 201 10x3/uL (130-400); RBC 4.41 10x6/uL (4.20-6.10); RDW 14.2 % (11.5-14.5); WBC 12.1 10x3/uL (4.8-10.8)
[2019-10-01 15:10] LABS: APTT 29.8 SECONDS (22.8-39.4); INR 1.04 (0.85-1.17); PROTIME 13.1 SECONDS (11.6-15.0)
[2019-10-01 15:17] LABS: CALC OSMOLALITY 287 mosm/kg (275-300); CALCIUM 8.2 mg/dL (8.5-10.1); CARBON DIOXIDE 26.9 mmol/L (21.0-32.0); CHLORIDE - SERUM 106 mmol/L (98-107); CREATININE - SERUM 1.1 mg/dL (0.6-1.3); GLUCOSE 115 mg/dL (74-106); POTASSIUM - SERUM 4.1 mmol/L (3.5-5.1); SODIUM 142 mmol/L (136-145); UREA NITROGEN 23 mg/dL (7-18); eGFR NON AFRICAN AMERICAN 67 mL/min (90-120)
[2019-10-01 15:38] LABS: ALBUMIN 3.3 g/dL (3.4-5.0); ALKALINE PHOSPHATASE 90 U/L (46-116); ALT (SGPT) 24 U/L (10-68); BILIRUBIN - TOTAL 0.34 mg/dL (0.2-1.3); CKMB 0.9 U/L (0.0-3.6); CREATINE KINASE 40 UL (21-232); MAGNESIUM - SERUM 2.3 mg/dL (1.8-2.4); PROTEIN - SERUM 7.6 g/dL (6.4-8.2)
[2019-10-01 15:40] LABS: TROPONIN-I < 0.017 ng/mL (0.000-0.060)
--- NOTE | 2019-10-01 16:00 | NUR ---
SAT 88 ON RA, PLACED ON 3LPM NC
[2019-10-01 16:16] VITALS: BP 127/78
[2019-10-01 17:14] VITALS: BMI 24.3
--- NOTE | 2019-10-01 19:36 | NUR ---
EVENING ROUNDS COMPLETED. AAOX4, VSS, NO S/S OF RESP DISTRESS. SPOUSE @BEDSIDE. MED REC COMPLETED, CALLED AND NOTIFIED MIRIAM STEIN ABOUT PT MED LIST. HE STATED HE WILL BE SEEN THE PT SHORTLY. PT DENIES ANY FURTHER NEEDS AT THIS TIME. WILL CPOC. CL WITHIN REACH, BED IN LOW SR UP X2.
[2019-10-01 20:00] VITALS: BP 116/81
--- NOTE | 2019-10-01 23:45 | NUR ---
PT STATES HE IS FEELING SOB. CALENDERING MACHINE OPERATOR REVA AND I HAVE CALLED RT. RT STATES SHE IS AT THE ER WITH OTHER PT. PT HEAD ELEVATED, O2 STILL @ 9L. SPO2 88 @ THIS TIME. WILL CTM WHILE AWAITING RT TREATMENT.
--- NOTE | 2019-10-02 00:12 | NUR ---
RT IN PT'S ROOM. PT RECIEVING RT TX. O2SAT @93. WILL CTM.
[2019-10-02 00:23] VITALS: BP 116/68
--- NOTE | 2019-10-02 01:30 | NUR ---
PT STILL FEELING SOB. STATES "I CAN'T DO THIS ANYMORE, I FEEL LIKE I'M DYING." CALLED AND NOTIFIED MIRIAM STEIN. EMIL STATES TO CHECK ABGS AND CALL SURVEY TECHNICIAN.
--- NOTE | 2019-10-02 01:40 | NUR ---
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 BT NO RESPONSE AT THIS TIME. PT STILL FEELING SOB. 02 SAT 80 @ THIS TIME.
--- NOTE | 2019-10-02 02:00 | NUR ---
STILL AWAITING A CALL FROM DR. HOFF. RT PLACED PT ON BIPAP AT THIS TIME. PT O2SAT NOW 95. PT RESTING COMFORTABLY. PT SPOUSE ALSO AT THE BEDSIDE.
[2019-10-02 04:00] VITALS: BP 118/63
--- NOTE | 2019-10-02 05:57 | NUR ---
STILL NO CALL BACK FROM PULMONOLGIST AT THIS TIME. ALTHOUGH PT 02SAT 97 ON BIPAP AND 95 ON HIFLOW NC. NO S/S OF RESPIRATORY DISTRESS AT THIS TIME, SPOUSE AT BEDSIDE. WILL CPOC.
[2019-10-02 06:31] LABS: BASOPHILS 0.2 % (0-2); EOSINOPHILS 0.1 % (0-7); HEMATOCRIT 40.9 % (42.0-54.0); HEMOGLOBIN 13.1 g/dL (13.5-17.5); IMMATURE GRANULOCYTES 0.2 % (0-5); LYMPHOCYTES 18.1 % (15-50); MCH 30.7 pg (26.0-34.0); MCV 95.8 fL (80.0-100.0); MEAN PLATELET VOLUME 9.5 fL (7.4-10.4); MONOCYTES 4.7 % (2-11); NEUTROPHILS 76.7 % (40-80); PLATELET COUNT 204 10x3/uL (130-400); RBC 4.27 10x6/uL (4.20-6.10); RDW 14.4 % (11.5-14.5)
[2019-10-02 07:07] LABS: CALC OSMOLALITY 289 mosm/kg (275-300); CALCIUM 8.4 mg/dL (8.5-10.1); CARBON DIOXIDE 26.6 mmol/L (21.0-32.0); CHLORIDE - SERUM 107 mmol/L (98-107); CKMB 12.3 U/L (0.0-3.6); CREATINE KINASE 77 UL (21-232); CREATININE - SERUM 1.2 mg/dL (0.6-1.3); GLUCOSE 124 mg/dL (74-106); POTASSIUM - SERUM 4.2 mmol/L (3.5-5.1); SODIUM 143 mmol/L (136-145); UREA NITROGEN 24 mg/dL (7-18); eGFR NON AFRICAN AMERICAN 61 mL/min (90-120)
[2019-10-02 07:19] LABS: TROPONIN-I 3.296 ng/mL (0.000-0.060)
[2019-10-02 09:32] VITALS: BP 115/60
--- NOTE | 2019-10-02 11:30 | NUR ---
PT C/O SOB. O2 SAT 88-90% ON 9L HIGH FLOW. DR. HOFF PAGED WITH NO ANSWER. RESPIRATORY PAGED TWICE. BREATHING TX ADMINISTERED. AT THIS TIME PT C/O ANXIETY AND VOMITED. MIRIAM STEIN NOTIFIED AND ORDER FOR ZOFRAN AND PRN XANAX RECIEVED AND GIVEN. O2 SAT 95%. PT STATES HE FEELS BETTER.
[2019-10-02 13:09] VITALS: BP 150/69
--- NOTE | 2019-10-02 13:26 | NUR ---
I have reviewed this patient and I concur with the Shift Assessment completed by the Licensed Practical Nurse today this shift.
[2019-10-02 16:02] VITALS: Ht 172.7 cm; Wt 71.8 kg
[2019-10-02 16:45] VITALS: BP 124/65
[2019-10-02 20:00] VITALS: BP 106/55
--- NOTE | 2019-10-02 21:49 | NUR ---
SPOKE WITH DR.ST JOSUE TO MAKE SURE IT WAS OK TO GIVE THE BLOOD THINNERS. HE HAS PLAVIX AND LOVENOX DUE AND ALSO HAS AN INTEGRILLIN DRIP RUNNING AT 6ML/HR. PER DR. HYDE, OK TO GIVE ALL. ALSO HIS BLOOD PRESSURE IS 106/55 AND HEART RATE IS 59. ORDERS TO HOLD THE CARDIZEM AND LOPRESSOR TONIGHT. RESUME OTHER MEDICATIONS ON JAN.
--- NOTE | 2019-10-02 23:33 | NUR ---
PATIENTS O2 SAT ON HIGH FLOW NASAL CANNULA IS 88%. PLACED PT BACK ON BIPAP AND O2 SAT CAME UP TO 93%. NOT DISTRESS NOTED. HIS IS AT HIS BEDSIDE. HE DENIES PAIN OR NEEDS.
[2019-10-03] VITALS: BP 134/73
--- NOTE | 2019-10-03 03:30 | NUR ---
INTEGRILLIN DRIP STOPPED ORDERED.
[2019-10-03 04:00] VITALS: BP 102/57
[2019-10-03 07:03] LABS: BASOPHILS 0.4 % (0-2); EOSINOPHILS 0.8 % (0-7); HEMATOCRIT 38.4 % (42.0-54.0); IMMATURE GRANULOCYTES 0.2 % (0-5); LYMPHOCYTES 26.9 % (15-50); MCH 29.9 pg (26.0-34.0); MCHC 31.3 g/dL (31.0-37.0); MCV 95.8 fL (80.0-100.0); MEAN PLATELET VOLUME 9.7 fL (7.4-10.4); MONOCYTES 10.6 % (2-11); NEUTROPHILS 61.1 % (40-80); PLATELET COUNT 195 10x3/uL (130-400); RBC 4.01 10x6/uL (4.20-6.10); RDW 14.4 % (11.5-14.5); WBC 12.1 10x3/uL (4.8-10.8)
[2019-10-03 07:32] LABS: ANION GAP 10.8 mmol/L (8-16); CALCIUM 7.9 mg/dL (8.5-10.1); CARBON DIOXIDE 27.1 mmol/L (21.0-32.0); CREATININE - SERUM 1.2 mg/dL (0.6-1.3); MAGNESIUM - SERUM 2.4 mg/dL (1.8-2.4); PHOSPHOROUS 3.7 mg/dL (2.5-4.9); POTASSIUM - SERUM 3.9 mmol/L (3.5-5.1)
[2019-10-03 07:36] LABS: TROPONIN-I 1.475 ng/mL (0.000-0.060)
--- NOTE | 2019-10-03 08:29 | NUR ---
REPORT RECIEVED. WILL CONTINUE WITH POC. PT CURRENTLY LYING SEMI FOWLERS. CALL LIGHT W/I REACH. RR EVEN AND UNLABORED ON 9L HIGH FLOW NC. L.FOR PIV IS SALINE LOCKED. PT DENIES ANY NEEDS. NO S/S OF DISTRESS NOTED. WILL CTM.
[2019-10-03 08:41] VITALS: BP 121/52
[2019-10-03 13:00] VITALS: BP 125/60
--- NOTE | 2019-10-03 14:52 | NUR ---
I have reviewed this patient and I concur with the Shift Assessment completed by the Licensed Practical Nurse today this shift.
[2019-10-03 16:38] VITALS: BP 114/56
[2019-10-03 20:00] VITALS: BP 121/65
--- NOTE | 2019-10-03 20:09 | NUR ---
REPORT RECIEVED AND ROUINDING COMPLETE. PATIENT SITTING UP IN BED WITH BIPAP ON. PATIENT HAS A PACEMAKER, WNL. PATIENT HAS A DRESSING TO THE RIGHT GROIN, DRESSING C/D/I. PATIENT HAS A LEFT FOREARM PIV THAT IS SALINE LOCKED, PIV SHOWING NO S/SX OF INFILTRATION OR INFECTION. PATIENT IS A&O X4 AND AT BEDSIDE. PATIENT SHOWING NO S/SX OF DISTRESS AT THIS TIME. CALL LIGHT WITHIN REACH AND BED IN LOWEST LOCKED POSTION.
[2019-10-04] VITALS: BP 117/54
--- NOTE | 2019-10-04 01:23 | NUR ---
I have reviewed this patient and I concur with the Shift Assessment completed by the Licensed Practical Nurse today this shift.
[2019-10-04 04:00] VITALS: BP 137/62
[2019-10-04 04:44] LABS: BASOPHILS 0.7 % (0-2); EOSINOPHILS 3.2 % (0-7); HEMATOCRIT 35.3 % (42.0-54.0); IMMATURE GRANULOCYTES 0.2 % (0-5); LYMPHOCYTES 34.1 % (15-50); MCH 29.9 pg (26.0-34.0); MCHC 31.2 g/dL (31.0-37.0); MCV 95.9 fL (80.0-100.0); MEAN PLATELET VOLUME 9.4 fL (7.4-10.4); MONOCYTES 11.1 % (2-11); NEUTROPHILS 50.7 % (40-80); PLATELET COUNT 183 10x3/uL (130-400); RBC 3.68 10x6/uL (4.20-6.10); RDW 14.5 % (11.5-14.5)
[2019-10-04 04:59] LABS: ANION GAP 7.9 mmol/L (8-16); CALCIUM 7.7 mg/dL (8.5-10.1); CARBON DIOXIDE 29.6 mmol/L (21.0-32.0); CREATININE - SERUM 1.1 mg/dL (0.6-1.3); POTASSIUM - SERUM 3.5 mmol/L (3.5-5.1)
--- NOTE | 2019-10-04 07:50 | NUR ---
PT RESTING. BIPAP IN PLACE. RR EVEN AND UNLABORED. AT BEDSIDE. ALERT AND ORIENTED. DENIES NEEDS OR PAIN AT THIS TIME. BED INLOWEST POSITION CALL LIGHT WITHIN REACH. WILL CONTINUE TO MONIOTR.
[2019-10-04 09:43] VITALS: BP 137/68
--- NOTE | 2019-10-04 09:55 | NUR ---
I have reviewed this patient and I concur with the Shift Assessment completed by the Licensed Practical Nurse today this shift.
[2019-10-04 13:43] VITALS: BP 148/54
--- NOTE | 2019-10-04 14:08 | CN ---
PATIENT NAME:LUZ DESHPANDE MEDICAL RECORD: [id number] : 30 LOCATION:[facility] D.2138 ADMIT DATE: 10/01/19 ACCOUNT: [id number] CONSULTING PHYSICIAN: ERIC SINGH MD REFERRING PHYSICIAN: TOD SAUL MD DATE OF CONSULTATION: 10/02/2019 DIAGNOSES: 1. Non-Q-wave myocardial infarction. 2. Coronary artery disease. 3. Previous cardiac stenting. 4. Sick sinus syndrome. 5. Status post pacemaker. 6. Paroxysmal atrial fibrillation. 7. Hypertension. 8. Hyperlipidemia. 9. Pneumonia. 10. Shortness of breath, dyspnea on exertion. HISTORY OF PRESENT ILLNESS: Mr. Deshpande presented with shortness of breath, dyspnea on exertion yesterday. No chest pain yesterday. This morning, however, acutely he had an episode of chest pain associated with his heart rate going up, becoming very diaphoretic, it was like that of his previous angina. It was a severe pressure sensation and a tightness across the anterior chest. Since then, his troponin has elevated to greater than 3. He is pain free at this moment. PHYSICAL EXAMINATION: CONSTITUTIONAL/GENERAL APPEARANCE: Well nourished, well developed, appears stated age. EYES: Lids and conjunctivae noninjected. No discharge. No pallor. ENT: Lips within normal limit. No cyanosis. No pallor. NECK: Carotid arteries, bilateral normal upstroke. No bruits. No thrills. No jugular venous pressure or distention. CERVICAL LYMPH NODES: Nontender. Nonenlarged. THYROID: Not enlarged. No nodules. CARDIOVASCULAR: Precordial exam, nondisplaced. No heaves or pericardial thrills. Rate and rhythm, regular. Heart sounds, normal S1, normal S2. No S3, no gallop, no rub. Systolic murmur, not heard. Diastolic murmur, not heard. RESPIRATORY: Respiratory effort, unlabored. Normal curvature. No thoracic deformity. No chest wall tenderness. Percussion, resonant. Auscultation, clear. No wheezes, no rales, no rhonchi. ABDOMEN: Soft, nondistended, nontender. No abdominal pain, no vomiting and normal appetite. MUSCULOSKELETAL: No joint tenderness, normal gait, normal tone. SKIN: Warm and dry. OVERALL IMPRESSION: Severe onset of chest discomfort associated with a non-Q-wave myocardial infarction and unstable angina. He has undergone greater than 24-hour treatment for his pneumonia. He appears to be stable from acute infection standpoint will proceed with coronary angiography. Further care depends upon the findings of the angiography. TRANSINT:[id number] Voice Confirmation ID: [id number] DOCUMENT ID: [id number] CONSULT REPORT [id number] LUZ DESHPANDE JEFFREY MD at 1408 CC: [id number] DICTATION DATE: 10/02/19 1116 BODY AND FRAME MAN: 10/02/19 1123 ADM IN [facility] [address] [id number]
--- NOTE | 2019-10-04 14:08 | OP ---
PATIENT NAME: LUZ JIMENEZ MEDICAL RECORD: [id number] :30 LOCATION:D.M2 D.2138 ADMISSION DATE:10/01/19 SURGEON: ERIC SINGH MD DATE OF OPERATION: 10/02/2019 PROCEDURES: 1. PTCA and stent of vein graft to left circumflex. 2. Left heart catheterization. 3. Selective coronary angiography. 4. Vein graft angiography. 5. XAVIER angiography. INDICATION: Non-Q-wave myocardial infarction. DESCRIPTION OF PROCEDURE: After informed consent was obtained and risks, benefits as well as alternative therapies, the patient elected to proceed with angiogram and angioplasty. The right femoral area was prepped and draped in normal sterile fashion. Right femoral artery was cannulated via modified Seldinger technique with placement of 6-Frisian sheath. All catheters exchanged through this sheath. FINDINGS: Left ventriculogram was performed in standard 30-degree BELTRÁN view, reveals moderately depressed LV function, ejection fraction in the 30% range. SELECTIVE CORONARY ANGIOGRAPHY: 1. Left main is with no significant angiographic disease. 2. Left anterior descending is totally occluded. 3. Left circumflex is totally occluded. 4. Right coronary is totally occluded. 5. XAVIER to the LAD is widely patent. Distal LAD is extremely small and diffusely diseased, but patent. 6. Vein graft to the LAD diagonal is patent. The distal LAD diagonal is small and diffusely diseased, but patent. 7. Vein graft to the circumflex is patent; however, there is 90% stenosis in the proximal shaft. 8. Vein graft to the RCA is patent. Distal RCA is patent. PTCA AND STENT OF THE VEIN GRAFT TO LEFT CIRCUMFLEX: The stent used was a 3.0 x 8-mm Cobra taken to 21 atmospheres. Result was 0% residual stenosis. OVERALL IMPRESSION: Successful PTCA and stent of the vein graft to the circumflex going from 90% initial stenosis to 0% residual. TRANSINT:[id number] Voice Confirmation ID: [id number] DOCUMENT ID: [id number] ERIC SINGH MD at 1408 CC: [id number] DICTATION DATE: 10/02/19 1556 MANAGER ASSET: 10/03/19 0057 [place] [address]
--- NOTE | 2019-10-04 14:08 | EC ---
PATIENT:LUZ JIMENEZ DATE OF SERVICE: 10/01/19 SEX: M MEDICAL RECORD: [id number] DATE OF : 30 LOCATION:D.M2 D.213 AGE OF PATIENT: 89 ADMISSION DATE: 10/01/19 REFERRING PHYSICIAN: INTERPRETING PHYSICIAN: ERIC WU MD ECHOCARDIOGRAM REPORT ECHO CHARGES 4 ECHO COMPLETE Date: 10/02/19 CLINICAL DIAGNOSIS: DE ECHOCARDIOGRAPHIC MEASUREMENTS (adult normal given) AC root (d.<3.7cm) 3.2 cm LV Septum d (<1.2 cm> 1.3 cm Valve Excursion 1.1 cm LV Septum (systole) 1.9 cm Left Atria (s.<4.0cm> 4.8 cm LVPW d(<1.2cm) 1.2 cm RV (d.<2.3cm) 2.9 cm LVPW (sytole) 1.6 cm LV diastole(<5.6CM) 7.6 cm MV E-F(>70mm/sec) cm LV systole 5.7 cm LVOT Diameter 1.6 cm MV exc.(>10mm) cm Est.ejection fraction (50-75%) % DOPPLER: LVIT cm/sec A 47.0 cm/sec E 155 cm/sec LA cm/sec RVSP 71.0 mmHg LVOT 95.0 cm/sec AOP1/2T m/s Asc. Ao 158 cm/sec RVOT 55.0 cm/sec RA cm/sec PA 114 cm/sec AV Gradient Peak 9.9 mmHg AV Mean 4.1 mmHg AV Area 1.2 cm MV Gradient Peak 12.0 mmHg MV Mean 3.4 mmHg MV Area cm COMMENTS: Materials Branch Chief: 1 NAYELY [place] Forest Fire Warden: 1 Dr. Wu TAPE# PACS Pericardial Effusion N DATE OF SERVICE: FINDINGS: 1. Left ventricular chamber size is moderately dilated. Left ventricular systolic function is mild to moderately reduced at 35% to 40%. 2. Left atrium is enlarged at 4.8 cm. Right atrium and right ventricular chamber sizes are as well dilated. 3. Valvular structures have normal structure and motion. 4. Doppler interrogation reveals severe mitral regurgitation, moderate tricuspid regurgitation, no other valvular insufficiency or stenosis. Pulmonary ECHOCARDIOGRAM REPORT [id number] LUZ JIMENEZ systolic pressure is markedly elevated, estimated at 71 mmHg. 5. No evidence of pericardial effusion or left ventricular thrombus. TRANSINT:[id number] Voice Confirmation ID: [id number] DOCUMENT ID: [id number] ERIC WU MD at 1408 CC: [id number] DICTATION DATE: 10/02/191752 GUIDE SETTER: 10/03/19 0148 ADM IN [facility] [address] [place] [id number]
[2019-10-04 18:31] VITALS: BP 124/58
--- NOTE | 2019-10-04 19:20 | NUR ---
LYING IN BED. AT BEDSIDE. ALERT AND ORIENTED. BIPAP IN USE. RESP IRREG. TETLIN. TELEMETRY SHOWS PACED AT 67. USES URINAL. ABD DISTENDED. BS PRESENT X4 QUADS. SCDS IN USE BILAT. PEDAL PULSES WEAK BILAT. SALINE LOCK NOTED TO LT FOREARM. DENIES PAIN. MILD ANXIETY NOTED. WORRIED BIPAP ISNT WORKING PROPERLY. NO EDEMA NOTED. SR ELEVATED X2. CL IN REACH. NO DISTRESS.
[2019-10-04 20:00] VITALS: BP 127/53
[2019-10-05] VITALS: BP 117/57
--- NOTE | 2019-10-05 01:40 | NUR ---
HASNT SLEPT MUCH TONIGHT. BIPAP IN USE. AT BEDSIDE. SHE STATES HE SLEEPS DURING THE DAY AND STAYS UP ALOT AT NIGHT. NO ACUTE DISTRESS. BIPAP ON. CL IN REACH.
[2019-10-05 04:00] VITALS: BP 128/53
--- NOTE | 2019-10-05 05:07 | NUR ---
LYING IN BED WITH EYES CLOSED. BIPAP IN USE. NO DISTRESS. AT BEDSIDE. CL IN REACH.
[2019-10-05 05:35] LABS: BASOPHILS 0.5 % (0-2); EOSINOPHILS 4.3 % (0-7); HEMATOCRIT 36.1 % (42.0-54.0); HEMOGLOBIN 11.5 g/dL (13.5-17.5); IMMATURE GRANULOCYTES 0.2 % (0-5); LYMPHOCYTES 30.6 % (15-50); MCHC 31.9 g/dL (31.0-37.0); MCV 94.3 fL (80.0-100.0); MEAN PLATELET VOLUME 9.7 fL (7.4-10.4); MONOCYTES 10.1 % (2-11); NEUTROPHILS 54.3 % (40-80); PLATELET COUNT 198 10x3/uL (130-400); RBC 3.83 10x6/uL (4.20-6.10); RDW 14.4 % (11.5-14.5); WBC 10.3 10x3/uL (4.8-10.8)
[2019-10-05 05:49] LABS: APTT 32.7 SECONDS (22.8-39.4); INR 1.1 (0.85-1.17); PROTIME 13.7 SECONDS (11.6-15.0)
[2019-10-05 05:56] LABS: CALC OSMOLALITY 289 mosm/kg (275-300); CARBON DIOXIDE 29.8 mmol/L (21.0-32.0); CHLORIDE - SERUM 107 mmol/L (98-107); GLUCOSE 84 mg/dL (74-106); POTASSIUM - SERUM 3.4 mmol/L (3.5-5.1); SODIUM 144 mmol/L (136-145); UREA NITROGEN 23 mg/dL (7-18); eGFR NON AFRICAN AMERICAN 75 mL/min (90-120)
[2019-10-05 08:58] VITALS: BP 154/64
--- NOTE | 2019-10-05 12:14 | NUR ---
I have reviewed this patient and I concur with the Shift Assessment completed by the Licensed Practical Nurse today this shift.
[2019-10-05 13:16] VITALS: BP 142/68
--- NOTE | 2019-10-05 15:04 | NUR ---
Nutrition Follow-up: Pt reports good appetite/PO intake. Diet: Cardiac Wt: 160# Last BM: 10/03 Labs noted: K+ 3.4, Ca 8.0 Meds noted: Lasix -Continue current diet as tolerated. -RD following.
--- NOTE | 2019-10-05 17:23 | MORECARE ---
CASE MANAGEMENT DISCHARGE SUMMARY PATIENT: LUZ JIMENEZ UNIT: [id number] ADM DATE: 10/01/19 AGE: 89 : 30 SEX: M ROOM/BED: D.2138 AUTHOR: MARE SOARES PHYSICIAN: REFERRING PHYSICIAN: TOD SAUL MD DATE OF SERVICE: 10/05/19 Discharge Plan Patient Name: LUZ JIMENEZ [facility] [facility] 1930 Planned Disposition: Home Anticipated Discharge Date: Discharge Date: Expected LOS: Initial Reviewer: [email or web address] Initial Review Date: 10/01/2019 Generated: 10/05/19 6:23 pm Patient Name: LUZ JIMENEZ Page [id number] at 1723 All edits/amendments must be made on the electronic document DICTATION DATE: 10/05/191722 BUILDING SERVICES TECHNICIAN: ZAFAR 10/05/191722 RPT#: [id number] DC DATE: STATUS: ADM IN [facility] [address] [place] [address] END OF REPORT
--- NOTE | 2019-10-05 17:37 | MORECARE ---
CASE MANAGEMENT DISCHARGE SUMMARY PATIENT: LUZ JIMENEZ UNIT: [id number] ADM DATE: 10/01/19 AGE: 89 : 30 SEX: M ROOM/BED: D.7269 AUTHOR: FANY,DOC PHYSICIAN: REFERRING PHYSICIAN: TOD SAUL MD DATE OF SERVICE: 10/05/19 Discharge Plan Patient Name: LUZ JIMENEZ Facility[facility]:[place] : 1930 Planned Disposition: Home Anticipated Discharge Date: Discharge Date: Expected LOS: Initial Reviewer: [email or web address] Initial Review Date: 10/01/2019 Generated: 10/05/19 6:37 pm Comments DCP- Discharge Planning Updated by [email or web address]: Brendan Hawk on 10/05/19 4:[address] Patient Name: LUZ JIMENEZ Admission Status: Elective Accout number: [id number] Admission Date: 10-01-2019 : 1930 Admission Diagnosis: Attending: TOD SAUL Current LOS: 4 Anticipated DC Date: Planned Disposition: Home Primary Insurance: MEDICARE A & B Discharge Planning Comments: CM MET WITH PT IN ROOM TO DISCUSS DISCHARGE PLANNING AND NEEDS. PT REPORTS LIVING AT HOME INDEPENDENTLY WITH HIS . PT HAS CANE, CPAP, HOME OXYGEN, NEBLUZIER AND WALKER FROM [facility] PATIENT. PT HAS NO OUTSIDE SERVICES ASSISTING IN THE HOME. CM DISCUSSED AVAILABILITY OF HOME HEALTH, REHAB SERVICES AND MEDICAL EQUIPMENT. 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 PT DENIES DISCHARGE NEEDS, REPORTS HIS WILL PICK HIM UP FOR DISCHARGE HOME. IMPORTANT MESSAGE FROM MEDICARE PROVIDED AND EXPLAINED. PT PLANS TO DISCHARGE HOME WITH , DENIES NEEDS AT THIS TIME. FAMILY TO TRANPSORT HOME AT DISCHARGE. CM TO FOLLOW AND ASSIST IF NEEDED. Direct Support Professional Home Health: Brendan Hawk DCPIA - Discharge Planning Initial Assessment Updated by [email or web address]: Brendan Hawk on 10/05/19 5:31 pm * Is the patient Alert and Oriented? Yes * How many steps to enter\exit or inside your home? * PCP DR. RICHARD [place] * Pharmacy [facility] [place] OR [facility] * Preadmission Environment Home with Family * ADLs Independent * Equipment Cane CPAP Walker * Other Equipment HOME OXYGEN [facility] PATIENT - PROVIDER * List name and contact numbers for known caregivers / representatives who currently or will assist patient after discharge: SAMIR JIMENEZ, SPOUSE, * Verbal permission to speak to the caregivers and representatives has been obtained from the patient. N/A * Community resources currently utilized None * Please name any agencies selected above. NONE * Additional services required to return to the preadmission environment? No * Can the patient safely return to the preadmission environment? Yes * Has this patient been hospitalized within the prior 30 days at any hospital? No Last DP export: 10/05/19 4:23 p Patient Name: LUZ JIMENEZ Page [phone] at 1737 All edits/amendments must be made on the electronic document DICTATION DATE: 10/05/191736 CORE FINISHER: ZAFAR 10/05/191736 RPT#: [id number] DC DATE: STATUS: ADM IN [facility] [address] [place] [address] END OF REPORT
--- NOTE | 2019-10-05 19:21 | NUR ---
AWAKE AND ALERT BED LOW AND LOCKED SKIN WARM AND DRY PT ON BIPAP REMOVED OLD IV SITE CATH INTACT AND STARTED NEW TO LEFT FORARM WITH 20 GAUGE AND BEGIN ANTIBIOTIC THAT WAS STILL HANGING
[2019-10-05 20:00] VITALS: BP 126/53
[2019-10-06] VITALS (9 sets, daily range): BP systolic 124–156; BP diastolic 46–96
--- NOTE | 2019-10-06 01:52 | NUR ---
I have reviewed this patient and I concur with the Shift Assessment completed by the Licensed Practical Nurse today this shift.
[2019-10-06 06:17] LABS: BASOPHILS 0.8 % (0-2); EOSINOPHILS 3.7 % (0-7); HEMATOCRIT 34.9 % (42.0-54.0); HEMOGLOBIN 11.1 g/dL (13.5-17.5); IMMATURE GRANULOCYTES 0.2 % (0-5); MCH 30.1 pg (26.0-34.0); MCHC 31.8 g/dL (31.0-37.0); MCV 94.6 fL (80.0-100.0); MEAN PLATELET VOLUME 9.1 fL (7.4-10.4); MONOCYTES 9.4 % (2-11); NEUTROPHILS 55.9 % (40-80); PLATELET COUNT 185 10x3/uL (130-400); RBC 3.69 10x6/uL (4.20-6.10); RDW 14.3 % (11.5-14.5); WBC 9.9 10x3/uL (4.8-10.8)
[2019-10-06 06:33] LABS: CALC OSMOLALITY 282 mosm/kg (275-300); CALCIUM 8.1 mg/dL (8.5-10.1); CARBON DIOXIDE 30.4 mmol/L (21.0-32.0); CHLORIDE - SERUM 108 mmol/L (98-107); GLUCOSE 90 mg/dL (74-106); LDH 161 U/L (85-227); POTASSIUM - SERUM 3.3 mmol/L (3.5-5.1); PROTEIN - SERUM 5.9 g/dL (6.4-8.2); SODIUM 141 mmol/L (136-145); UREA NITROGEN 19 mg/dL (7-18); eGFR NON AFRICAN AMERICAN 75 mL/min (90-120)
[2019-10-06 07:53] LABS: APTT 29.1 SECONDS (22.8-39.4); INR 1.12 (0.85-1.17); PROTIME 13.9 SECONDS (11.6-15.0)
--- NOTE | 2019-10-06 08:00 | NUR ---
A/A/OX4 AND REMAINS NPO FOR PROCEDURE THIS A.M. DENIES ANY PAIN AT THIS TIME AND NO REQUESTS VOICED. 02 ON PER HF N/C AT 7 L/M WITH NO RESP DISTRESS NOTED. SL PATENT TO LEFT FA WITHOUT REDNESS OR EDEMA. SCDS ON AND WORKING PROPERLY. ASSESSMENT COMPLELTED AND WILL CONTINUE POC. AT BEDSIDE.
[2019-10-06 10:59] LABS: PROTEIN - BODY FLUID 2.2 G/DL
[2019-10-06 14:34] LABS: MACROPHAGES BF 28 %; MESOTHELIALS BF 5 %; NEUT - BF 25 %
--- NOTE | 2019-10-06 17:48 | NUR ---
I HAVE REVIEWED THIS PATIENT AND I CONCUR WITH THE SHIFT ASSESSMENT COMPLETED BY THE INSTRUCTIONAL MANAGER TODAY THIS SHIFT
--- NOTE | 2019-10-06 19:45 | NUR ---
PT ALERT AND ORIENTED X4 WITH AT BEDSIDE. RR EVEN AND UNLABORED. PT ON BIPAP AT 30% O2-95%. NO S/S OF DISTRESS AT THIS TIME. BED LOW CALL LIGHT WITHIN REACH. WILL CONTINUE TO MONITOR.
[2019-10-07 00:29] VITALS: BP 133/62
--- NOTE | 2019-10-07 04:05 | NUR ---
PT RESTINGIN BED WITH BIPAP IN PLACE. O2-96%. PT AT BEDSIDE. NO S/S OF DISTRESS AT THIS TIME. BED LOW CALL LIGHT WITHIN REACH. WILL CONTINUE TO MONITOR.
[2019-10-07 04:15] VITALS: BP 133/51
[2019-10-07 05:33] LABS: BASOPHILS 0.5 % (0-2); HEMOGLOBIN 12.3 g/dL (13.5-17.5); IMMATURE GRANULOCYTES 0.3 % (0-5); LYMPHOCYTES 23.9 % (15-50); MCH 30.4 pg (26.0-34.0); MCHC 32.4 g/dL (31.0-37.0); MCV 94.1 fL (80.0-100.0); MEAN PLATELET VOLUME 9.2 fL (7.4-10.4); MONOCYTES 9.5 % (2-11); NEUTROPHILS 61.8 % (40-80); PLATELET COUNT 201 10x3/uL (130-400); RBC 4.04 10x6/uL (4.20-6.10); RDW 14.5 % (11.5-14.5)
[2019-10-07 05:38] LABS: WBC 13.1 10x3/uL (4.8-10.8)
[2019-10-07 06:06] LABS: ALBUMIN 2.7 g/dL (3.4-5.0); ALKALINE PHOSPHATASE 76 U/L (46-116); ALT (SGPT) 14 U/L (10-68); BILIRUBIN - TOTAL 0.48 mg/dL (0.2-1.3); CALC OSMOLALITY 288 mosm/kg (275-300); CALCIUM 8.5 mg/dL (8.5-10.1); CARBON DIOXIDE 26.3 mmol/L (21.0-32.0); CHLORIDE - SERUM 108 mmol/L (98-107); GLUCOSE 92 mg/dL (74-106); MAGNESIUM - SERUM 2.2 mg/dL (1.8-2.4); PHOSPHOROUS 3.4 mg/dL (2.5-4.9); PRO BNP 7030 pg/mL (0-450); PROTEIN - SERUM 6.6 g/dL (6.4-8.2); SODIUM 144 mmol/L (136-145); UREA NITROGEN 19 mg/dL (7-18); eGFR NON AFRICAN AMERICAN 75 mL/min (90-120)
[2019-10-07 06:09] LABS: POTASSIUM - SERUM 4.1 mmol/L (3.5-5.1)
--- NOTE | 2019-10-07 07:59 | NUR ---
PT AWAKE ADN ORIENTED, BIPAP ON AND FUNCTIONING WNL. ASLEEP ON BLOW UP MATTRESS ON FLOOR BESIDE BED. NO COMPLAINTS/CONCERNS AT THIS TIME, ALL QUESTIONS ANSWERED TO THE BEST OF MY ABILITY. CL IN REACH, SRX2.
[2019-10-07 08:19] VITALS: BP 138/48
[2019-10-07 11:43] VITALS: BP 116/48
--- NOTE | 2019-10-07 14:54 | NUR ---
I have reviewed this patient and I concur with the Shift Assessment completed by the Licensed Practical Nurse today this shift.
[2019-10-07 15:09] LABS: ACID FAST SMEAR Negative (()); AFB SPECIMEN PROCESSING Not Indicated (())
[2019-10-07 16:00] VITALS: BP 134/60
--- NOTE | 2019-10-07 19:51 | NUR ---
INITIAL ROUNDS COMPLETED AT 1920 HRS. PT DENIED ANY DISCOMFORT. AT BEDSIDE. SR UP X2, CALL LIGHT WITHIN REACH.
[2019-10-07 20:33] VITALS: BP 138/52
--- NOTE | 2019-10-07 22:06 | NUR ---
ASSESSMENT COMPLETED AT 1950 HRS. VSS. ALERT AND ORIENTED TO PERSON,PLACE AND TIME. SCHWARTZ. PACED RHYTHM PER CM HR 60. O2 5.5LHF O2. LUNGS DIMINISHED IN BSES BILAT. ABD SODT WITH ACTIVE BS NOTED. DRESSING TO R LOWER BACK CLEAN, DRY AND INTACT. PT AND BED WET. HIBICLENS BATH DONE, BED LINENS CHANGED. PM MEDS GIVEN. PT CURRENTLY WATCHING TV WITH AT BEDSIDE. SR UP X2, CALL LIGHT WITHIN REACH AND BIPAP ON.
--- NOTE | 2019-10-07 23:35 | NUR ---
PT RESTING WITH EYES CLOSED. RESP EVEN AND REGULAR. SR UP X2, CALL LIGHT WITHIN REACH, BIPAP ON, BED ALARM ON AND AT BEDSIDE.
[2019-10-08 00:35] VITALS: BP 111/42
--- NOTE | 2019-10-08 02:01 | NUR ---
PT RESTING WITH EYES CLOSED. RESP EVEN AND REGULAR. SR UP X2, CALL LIGHT WITHIN REACH AND BED ALARM ON.
--- NOTE | 2019-10-08 04:27 | NUR ---
PT AWAKE; DENIES ANY DISCOMFORT. SR UP X2, CALL LIGHT WIHTIN REACH, BED ALARM ON AND BIPAP IN USE.
[2019-10-08 04:41] VITALS: BP 113/52
[2019-10-08 06:09] LABS: BASOPHILS 0.3 % (0-2); EOSINOPHILS 4.1 % (0-7); HEMATOCRIT 38.2 % (42.0-54.0); HEMOGLOBIN 12.3 g/dL (13.5-17.5); IMMATURE GRANULOCYTES 0.2 % (0-5); LYMPHOCYTES 27.9 % (15-50); MCH 30.1 pg (26.0-34.0); MCHC 32.2 g/dL (31.0-37.0); MCV 93.6 fL (80.0-100.0); MEAN PLATELET VOLUME 9.4 fL (7.4-10.4); NEUTROPHILS 58.5 % (40-80); PLATELET COUNT 211 10x3/uL (130-400); RBC 4.08 10x6/uL (4.20-6.10); RDW 14.7 % (11.5-14.5); WBC 11.6 10x3/uL (4.8-10.8)
[2019-10-08 06:25] LABS: CALC OSMOLALITY 288 mosm/kg (275-300); CALCIUM 8.3 mg/dL (8.5-10.1); CARBON DIOXIDE 28.8 mmol/L (21.0-32.0); CHLORIDE - SERUM 107 mmol/L (98-107); GLUCOSE 89 mg/dL (74-106); SODIUM 144 mmol/L (136-145); UREA NITROGEN 21 mg/dL (7-18); eGFR NON AFRICAN AMERICAN 75 mL/min (90-120)
--- NOTE | 2019-10-08 06:55 | NUR ---
[facility] CALLED AT 06O9 HRS. UPON ENTERING ROOM PT GASPING FOR BREATH. NO PULSE. CPR INITIATED AND CODE BLUE CALLED. ESCORTED OUT OF ROOM AND SON CALLED. CODE STOPED AT 0631 HRS. PT'S CEMENT BOAT AND BARGE LOADER CALLED. DR TAPIA SPOKE AT [facility] WITH . IV DC'D WITH CATHETER INTACT. ET TUBE REMOVED.
--- NOTE | 2019-10-08 07:14 | NUR ---
[place] NOTIFIED AT 0705. NOT A CANIDATE.
--- NOTE | 2019-10-08 07:22 | NUR ---
SHEILA MURRAY APN FOR DR RANDALL NOTIFED THAT PT AT O640 HRS.
--- NOTE | 2019-10-08 07:50 | NUR ---
PT CODED THIS MORNING AT 0630, HAD WHEN I ARRIVED FOR SHIFT CHANGE. MULTIPLE FAMILY MEMBERS AND FRIENDS GOING IN AND OUT OF ROOM AT THIS TIME. INFORMED FAMILY OF MY CONDOLENCES AND THE NEED TO KEEP HIS DOOR CLOSED, TO PROVIDE THEM WITH PRIVACY. THEY ARE DISCUSSING HOMES TO USE, DENIED POST MORT[facility] CARE AT THIS TIME, STATED THEY WILL COME GET ME WHEN THEY'RE READY FOR THE NEXT STEPS.
--- NOTE | 2019-10-08 08:36 | NUR ---
FAMILY HAS PICKED [facility], NOTIFIYING AT 0840. FAMILY HAS SIGNED APPROPRIATE PAPER WORK. LEAVING ROOM TO GET ERICA TECH/NURSE WILL DO [facility] MORT[facility] CARE. CALLED HOME, THEY WILL BE HERE AT 1030 TO GET P.T. FROM ROOM.
--- NOTE | 2019-10-08 11:54 | NUR ---
HOME ARRIVE,D ESCORTED PT OUT TO VEHICLE.
--- NOTE | 2019-10-09 09:20 | MORECARE ---
CASE MANAGEMENT DISCHARGE SUMMARY PATIENT: LUZ JIMENEZ UNIT: [id number] ADM DATE: 10/01/19 AGE: 89 : 30 SEX: M ROOM/BED: D.7836 AUTHOR: FANY,DOC PHYSICIAN: REFERRING PHYSICIAN: TOD SAUL MD DATE OF SERVICE: 10/09/19 Discharge Plan Patient Name: LUZ JIMENEZ Facility: [facility]:[place] : 1930 Planned Disposition: Home Anticipated Discharge Date: 10/08/19 Discharge Date: 10/08/2019 Expected LOS: 7 Initial Reviewer: [email or web address] Initial Review Date: 10/01/2019 Generated: 10/09/19 10:19 am DCP- Discharge Planning Updated by [email or web address]: Brendan Hawk on 10/05/19 4:[address] Patient Name: LUZ JIMENEZ Admission Status: Elective Accout number: [id number] Admission Date: 10-01-2019 : 1930 Admission Diagnosis: Attending: TOD SAUL Current LOS: 4 Anticipated DC Date: Planned Disposition: Home Primary Insurance: MEDICARE A & B Discharge Planning Comments: CM MET WITH PT IN ROOM TO DISCUSS DISCHARGE PLANNING AND NEEDS. PT REPORTS LIVING AT HOME INDEPENDENTLY WITH HIS . PT HAS CANE, CPAP, HOME OXYGEN, NEBLUZIER AND WALKER FROM [facility] PATIENT. PT HAS NO OUTSIDE SERVICES ASSISTING IN THE HOME. CM DISCUSSED AVAILABILITY OF HOME HEALTH, REHAB SERVICES AND MEDICAL EQUIPMENT. 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 PT DENIES DISCHARGE NEEDS, REPORTS HIS WILL PICK HIM UP FOR DISCHARGE HOME. IMPORTANT MESSAGE FROM MEDICARE PROVIDED AND EXPLAINED. PT PLANS TO DISCHARGE HOME WITH , DENIES NEEDS AT THIS TIME. FAMILY TO TRANPSORT HOME AT DISCHARGE. CM TO FOLLOW AND ASSIST IF NEEDED. Operator Vacuum: Brendan Hawk DCPIA - Discharge Planning Initial Assessment Updated by [email or web address]: Brendan Hawk on 10/05/19 5:31 pm * Is the patient Alert and Oriented? Yes * How many steps to enter\exit or inside your home? * PCP DR. RICHARD [place] * Pharmacy [facility] [place] OR [facility] * Preadmission Environment Home with Family * ADLs Independent * Equipment Cane CPAP Walker * Other Equipment HOME OXYGEN [facility] PATIENT - PROVIDER * List name and contact numbers for known caregivers / representatives who currently or will assist patient after discharge: SAMIR JIMENEZ, SPOUSE, * Verbal permission to speak to the caregivers and representatives has been obtained from the patient. N/A * Community resources currently utilized None * Please name any agencies selected above. NONE * Additional services required to return to the preadmission environment? No * Can the patient safely return to the preadmission environment? Yes * Has this patient been hospitalized within the prior 30 days at any hospital? No Last DP export: 10/05/19 4:37 p Patient Name: LUZ JIMENEZ Page [id number] at 0920 All edits/amendments must be made on the electronic document DICTATION DATE: 10/09/19918 CLERICAL GRADER: ZAFAR 10/09/19918 RPT#: [id number] DC DATE:10/08/19 STATUS: DIS IN [facility] [address] [place] [address] END OF REPORT
[2019-10-09 11:09] LABS: FUNGUS STAIN Final report (())
[2019-11-02 14:09] LABS: FUNGUS MYCOLOGY CULTURE Final report (())
== END 2019-10-08 11:54 | disposition home or self-care (01) | DRG 853 ==
LOC: D.ER 14:38 → D.M2 16:22
PROVIDERS: Emergency Medicine; General Practice; Internal Medicine Interventional Cardiology; Internal Medicine Pulmonary Disease; ADMIT Legal Medicine; ATTEND Legal Medicine
PROC: B2121ZZ Fluoroscopy of Single Coronary Artery Bypass Graft using Low Osmolar Contrast (ICD-10-PCS; 2019-10-02)
PROC: B2181ZZ Fluoroscopy of Left Internal Mammary Bypass Graft using Low Osmolar Contrast (ICD-10-PCS; 2019-10-02)
PROC: B2151ZZ Fluoroscopy of Left Heart using Low Osmolar Contrast (ICD-10-PCS; 2019-10-02)
PROC: B2111ZZ Fluoroscopy of Multiple Coronary Arteries using Low Osmolar Contrast (ICD-10-PCS; 2019-10-02)
PROC: 02703DZ Dilation of Coronary Artery, One Artery with Intraluminal Device, Percutaneous Approach (ICD-10-PCS; principal; 2019-10-02 15:15)
PROC: 4A023N7 Measurement of Cardiac Sampling and Pressure, Left Heart, Percutaneous Approach (ICD-10-PCS; 2019-10-02 15:15)
PROC: 0W993ZZ Drainage of Right Pleural Cavity, Percutaneous Approach (ICD-10-PCS; 2019-10-06)
DX: A41.9 Sepsis, unspecified organism (principal); I21.4 Non-ST elevation (NSTEMI) myocardial infarction; J96.02 Acute respiratory failure with hypercapnia; J96.01 Acute respiratory failure with hypoxia; I50.33 Acute on chronic diastolic (congestive) heart failure; J15.6 Pneumonia due to other Gram-negative bacteria; J98.11 Atelectasis; N40.0 Benign prostatic hyperplasia without lower urinary tract symptoms; I25.10 Atherosclerotic heart disease of native coronary artery without angina pectoris; E78.5 Hyperlipidemia, unspecified; I48.0 Paroxysmal atrial fibrillation; I11.0 Hypertensive heart disease with heart failure; Z95.0 Presence of cardiac pacemaker; I08.1 Rheumatic disorders of both mitral and tricuspid valves; E87.6 Hypokalemia